=== PATIENT | female | born 1960 | race Caucasian/White ===

== ENCOUNTER 2017-08-21 02:22 | Inpatient (IN) ==
[2017-08-21] MEDS ORDERED: methylPREDNISolone 125 MG/2 ML VIAL IVP ONE (03:17)
[2017-08-21] MEDS ORDERED: Ipratropium/Albuterol Neb 3 ML IH ONE (03:17)
--- NOTE | 2017-08-21 03:22 | Emergency Department Note ---
Disposition Clinical Impression: COPD (chronic obstructive pulmonary disease) Qualifiers: COPD type: COPD with acute exacerbation Qualified Code(s): J44.1 - Chronic obstructive pulmonary disease with (acute) exacerbation Disposition: Admitted As Inpatient Condition: Fair Time of Disposition: 05:44 General Adult HPI - General Chief complaint: ED Shortness of Breath/Dyspnea Stated complaint: CECILIA Time Seen by Provider: 08/21/17 02:43 Source: EMS Mode of arrival: EMS Limitations: altered mental status Nursing Notes Reviewed: Yes Vital Signs Reviewed: Yes - History of Present Illness HPI Narrative: Patient is a 57-year-old female with a past medical history of MRDD, HTN, CHF diastoic 55%EF, and COPD presenting to the emergency department by squad from her longterm facility for the presentation of worsening shortness of breath and cough that has been going on for the past 3 days. Per squad patient was oxygen saturation in the 80s and was requiring a nonrebreather mask on 5 L of oxygen. Patient is denying any fever, chills, chest pain, nausea, vomiting, abdominal pain, back pain, urinary symptoms or any other associated symptoms at this time. Pain Scale: 0 - Related Data Home Medications Medication Instructions Recorded Confirmed Acetaminophen [Tylenol] 500 mg PO PRN PRN 08/21/17 08/21/17 Aspirin [Lo-Dose Aspirin EC] 81 mg PO DAILY 08/21/17 08/21/17 Atorvastatin Calcium [Lipitor] 20 mg PO DAILY 08/21/17 08/21/17 Benztropine Mesylate 2 mg PO DAILY 08/21/17 08/21/17 Calcium Carbonate [Antacid Ultra 1,177 mg PO PRN 08/21/17 08/21/17 Strength] Cholecalciferol (Vitamin D3) 1,000 unit PO DAILY 08/21/17 08/21/17 [Vitamin D3] CloZAPine [Fazaclo] 200 mg PO DAILY 08/21/17 08/21/17 Divalproex (12 HR) [Depakote (12 250 mg PO DAILY 08/21/17 08/21/17 HR)] Ergocalciferol (VITAMIN D2) 400 unit PO DAILY 08/21/17 08/21/17 [Vitamin D] Metoprolol Succinate [Toprol Xl] 25 mg PO DAILY 08/21/17 08/21/17 Montelukast [Singulair] 10 mg PO HS 08/21/17 08/21/17 Omeprazole [PriLOSEC] 20 mg PO DAILY 08/21/17 08/21/17 Oxybutynin Chloride [Ditropan Xl] 5 mg PO 1-2XD 08/21/17 08/21/17 Potassium Chloride [K-Tab ER] 20 meq PO DAILY 08/21/17 08/21/17 Sennosides/Docusate Sodium [Senna 1 each PO DAILY 08/21/17 08/21/17 Plus] risperiDONE [RisperDAL] 3 mg PO BID 08/21/17 08/21/17 Allergies Allergy/AdvReac Type Severity Reaction Status Date / Time Penicillins Allergy Hives Verified 08/21/17 02:23 All systems ED: reviewed and negative except as stated. Review of Systems: As Per HPI Constitutional: Denies: fever, chills ENT ED: Denies: congestion Cardiovascular: Reports: dyspnea on exertion Respiratory: Reports: cough, dyspnea, wheezes Gastrointestinal: Denies: abdominal pain, nausea, vomiting Genitourinary: Denies: urgency, dysuria Musculoskeletal: Denies: back pain, neck pain Past Medical History - Past Medical History Attestation: Yes The following information was validated with the patient. 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 She is coughing continuously. She is able to speak to me in full sentences. - General Limitations: altered mental status General appearance: alert, in no apparent distress - Head Head exam: atraumatic, normocephalic, normal inspection - Eye Eye exam: Present: normal appearance, PERRL, EOMI - ENT ENT exam: normal exam, normal oropharynx - Neck Neck exam: Present: normal inspection, full ROM, trachea midline - Chest Chest inspection: Present: normal inspection, symmetric chest wall rise - Expanded Respiratory Exam Location: wheezes: Left, Right, Upper, Lower, decreased breath sounds: Left, Right, Upper, Lower - Cardiovascular Cardiovascular exam: Present: regular rate, normal rhythm, +S1, +S2 - Abdominal Exam Abdominal exam: Present: soft, Non-Tender, normal bowel sounds - Extremities Exam Extremities exam: Present: normal inspection, full ROM, normal capillary refill. Absent: tenderness - Back Exam Back exam: Present: normal inspection, full ROM. Absent: CVA tenderness (R), CVA tenderness (L) - Neurological Exam Neurological exam: Present: alert, oriented X3 - Psychiatric Psychiatric exam: Present: normal affect, normal mood - Skin Skin exam: Present: warm, dry, intact, normal color Course Course Narrative: Plan at this time is order basic labs, chest x-ray, EKG as well as a BNP. Patient's clinical picture presents as COPD versus CHF. Labs ordered an IV steroids ordered as well. - Reevaluation(s) Reevaluation #1: Patient has increased movement of air in her lungs after her DuoNeb treatments. However, she is still having increased oxygen requirements. She remains alert and asking for something to drink. Patient will be given a hour-long treatment of albuterol nebulizers. She was accepted to the hospital by Dr. Garcia for acute exacerbation of COPD. Discussed this with the patient and she agrees with that plan. Patient's labs did show a hyponatremia however this does appear to be similar to prior visits. Time: 05:45 Vital Signs Temperature 98.7 F 08/21/17 02:24 Pulse Rate 93 08/21/17 02:24 Respiratory Rate 20 08/21/17 02:24 Blood Pressure 90/46 08/21/17 02:24 O2 Sat by Pulse Oximetry 88 08/21/17 02:24 Temperature 98.7 F 08/21/17 02:24 Pulse Rate 74 08/21/17 06:33 Respiratory Rate 22 08/21/17 06:33 Blood Pressure 93/45 08/21/17 06:33 O2 Sat by Pulse Oximetry 90 08/21/17 06:33 Oxygen Delivery Oxygen Delivery Simple Mask Medical Decision Making - Medical Records Medical records reviewed: Yes I reviewed the patient's medical records. - Lab Data Lab results reviewed: Yes I reviewed the patient's lab results. Result diagrams: 08/21/17 02:43 08/21/17 02:43 Lab Results 08/21/17 08/21/17 08/21/17 Range/Units 02:43 02:43 02:43 WBC 9.3 (4.3-11.1) K/mcL RBC 5.06 H (3.82-4.97) M/mcL Hgb 15.3 (11.5-15.4) g/dL Hct 45.0 H (35.3-44.9) % MCV 88.9 (83.0-100.0) fL MCH 30.2 (28.0-33.3) pg MCHC 34.0 (31.6-35.5) g/dL RDW 14.2 (11.5-14.5) % Plt Count 169 (140-400) K/mcL MPV 9.6 (9.4-12.4) fL Immature Gran % 0.3 (0-4) % Seg Neutrophils % 84.1 % Lymphocytes % 6.7 % Monocytes % 8.7 % Eosinophils % 0.0 % Basophils % 0.2 % Neutrophils # 7.8 (1.6-8.9) K/mcL Lymphocytes # 0.6 (0.6-4.6) K/mcL Monocytes # 0.8 (0.0-1.3) K/mcL Eosinophils # 0.0 (0.0-0.6) K/mcL Basophils # 0.0 (0.0-0.2) K/mcL Sodium 124 L (136-145) mEq/L Potassium 3.9 (3.5-5.1) mEq/L Chloride 82 L (98-107) mEq/L Carbon Dioxide 34 H (23-29) mEq/L BUN 6 (6-20) mg/dL Creatinine 0.45 L (0.60-1.20) mg/dL Est GFR ( Amer) > 60 (> 60) Est GFR (Non-Af Amer) > 60 (> 60) BUN/Creatinine Ratio 13 (6-26) Glucose 102 (70-105) mg/dL Calculated Osmolality 256 L (280-300) Calcium 8.9 (8.6-10.3) mg/dL Troponin I < 0.03 (< 0.04) ng/mL B-Natriuretic Peptide 132 H (Less than 100) pg/mL - Radiology Data Radiology results reviewed: Yes I reviewed the patient's radiology results. Chest X-Ray 08/21/17 02:43 IMPRESSION: No acute disease. D/ / Alejandro Martin MD / Alejandro Martin MD Interpreting Provider: Alejandro Martin MD - EKG Data EKG #1 EKG attestation: Yes I reviewed and interpreted this EKG. EKG results narrative: EKG done at 2:57 shows sinus tachycardia at a rate of 101. Normal axis. CA is 132, QRS is 126, QT is 350 and QTc is 408 and these are within normal limits. Patient does have a right bundle branch block, however when compared to old EKG this is present as well. This EKG appears improved from her prior EKG done in May 2017.
[2017-08-21 03:43] LABS: Basophils % 0.2 %; Hemoglobin 15.3 g/dL (11.5-15.4); Immature Granulocytes % 0.3 % (0-4); Lymphocytes # 0.6 K/mcL (0.6-4.6); Lymphocytes % 6.7 %; Mean Corpuscular Hemoglobin 30.2 pg (28.0-33.3); Mean Corpuscular Volume 88.9 fL (83.0-100.0); Mean Platelet Volume 9.6 fL (9.4-12.4); Monocytes # 0.8 K/mcL (0.0-1.3); Monocytes % 8.7 %; Neutrophils # 7.8 K/mcL (1.6-8.9); Platelet Count 169 K/mcL (140-400); Red Blood Count 5.06 M/mcL (3.82-4.97); Red Cell Distribution Width 14.2 % (11.5-14.5); Segmented Neutrophils % 84.1 %
[2017-08-21 03:55] LABS: BUN/Creatinine Ratio 13 (6-26); Blood Urea Nitrogen 6 mg/dL (6-20); Calcium 8.9 mg/dL (8.6-10.3); Carbon Dioxide 34 mEq/L (23-29); Chloride 82 mEq/L (98-107); Glucose 102 mg/dL (70-105); Osmolality,Calculated 256 (280-300); Potassium 3.9 mEq/L (3.5-5.1); Sodium 124 mEq/L (136-145); eGFR For African Americans > 60 (> 60); eGFR For Non-African Americans > 60 (> 60)
[2017-08-21 03:56] LABS: Troponin I < 0.03 ng/mL (< 0.04)
[2017-08-21] MEDS ORDERED: Furosemide 40 MG in 0.9 % Sodium Chloride 50 ML IVPB ONE (04:50)
[2017-08-21] MEDS ORDERED: Albuterol 2.5 MG/3 ML NEBULIZER IH ONE (05:07)
[2017-08-21] MEDS ORDERED: Furosemide 40 MG/4 ML VIAL IVP ONE (05:09)
--- NOTE | 2017-08-21 05:16 | Emergency Department Note ---
Disposition Clinical Impression: COPD (chronic obstructive pulmonary disease) Qualifiers: COPD type: COPD with acute exacerbation Qualified Code(s): J44.1 - Chronic obstructive pulmonary disease with (acute) exacerbation Disposition: Admitted As Inpatient Condition: Fair General Adult HPI - General Chief complaint: ED Shortness of Breath/Dyspnea Stated complaint: CECILIA Time Seen by Provider: 08/21/17 02:43 Source: EMS Mode of arrival: EMS Limitations: altered mental status Nursing Notes Reviewed: Yes Vital Signs Reviewed: Yes - History of Present Illness Pain Scale: 0 - Related Data Home Medications Medication Instructions Recorded Confirmed Acetaminophen [Tylenol] 500 mg PO PRN PRN 08/21/17 08/21/17 Aspirin [Lo-Dose Aspirin EC] 81 mg PO DAILY 08/21/17 08/21/17 Atorvastatin Calcium [Lipitor] 20 mg PO DAILY 08/21/17 08/21/17 Benztropine Mesylate 2 mg PO DAILY 08/21/17 08/21/17 Calcium Carbonate [Antacid Ultra 1,177 mg PO PRN 08/21/17 08/21/17 Strength] Cholecalciferol (Vitamin D3) 1,000 unit PO DAILY 08/21/17 08/21/17 [Vitamin D3] CloZAPine [Fazaclo] 200 mg PO DAILY 08/21/17 08/21/17 Divalproex (12 HR) [Depakote (12 250 mg PO DAILY 08/21/17 08/21/17 HR)] Ergocalciferol (VITAMIN D2) 400 unit PO DAILY 08/21/17 08/21/17 [Vitamin D] Metoprolol Succinate [Toprol Xl] 25 mg PO DAILY 08/21/17 08/21/17 Montelukast [Singulair] 10 mg PO HS 08/21/17 08/21/17 Omeprazole [PriLOSEC] 20 mg PO DAILY 08/21/17 08/21/17 Oxybutynin Chloride [Ditropan Xl] 5 mg PO 1-2XD 08/21/17 08/21/17 Potassium Chloride [K-Tab ER] 20 meq PO DAILY 08/21/17 08/21/17 Sennosides/Docusate Sodium [Senna 1 each PO DAILY 08/21/17 08/21/17 Plus] risperiDONE [RisperDAL] 3 mg PO BID 08/21/17 08/21/17 Allergies Allergy/AdvReac Type Severity Reaction Status Date / Time Penicillins Allergy Hives Verified 08/21/17 02:23 Constitutional: Denies: fever, chills ENT ED: Denies: congestion Cardiovascular: Reports: dyspnea on exertion Respiratory: Reports: cough, dyspnea, wheezes Gastrointestinal: Denies: abdominal pain, nausea, vomiting Genitourinary: Denies: urgency, dysuria Musculoskeletal: Denies: back pain, neck pain Past Medical History - Past Medical History Medical history: Reports: COPD, hyperlipidemia, hypertension, other Surgical history: Reports: no surgical history Psychiatric history: Reports: anxiety, depression, schizophrenia 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 - Social History Smoking Status: Current every day smoker Smokeless Tobacco Status: No Alcohol use: Reports: none Drug use: Reports: none Physical Exam - General Limitations: altered mental status General appearance: alert, in no apparent distress Course Vital Signs Temperature 98.7 F 08/21/17 02:24 Pulse Rate 93 08/21/17 02:24 Respiratory Rate 20 08/21/17 02:24 Blood Pressure 90/46 08/21/17 02:24 O2 Sat by Pulse Oximetry 88 08/21/17 02:24 Temperature 98.7 F 08/21/17 02:24 Pulse Rate 74 08/21/17 06:33 Respiratory Rate 22 08/21/17 06:33 Blood Pressure 93/45 08/21/17 06:33 O2 Sat by Pulse Oximetry 90 08/21/17 06:33 Oxygen Delivery Oxygen Delivery Simple Mask Medical Decision Making - Lab Data Result diagrams: 08/21/17 02:43 08/21/17 02:43 Lab Results 08/21/17 08/21/17 08/21/17 Range/Units 02:43 02:43 02:43 WBC 9.3 (4.3-11.1) K/mcL RBC 5.06 H (3.82-4.97) M/mcL Hgb 15.3 (11.5-15.4) g/dL Hct 45.0 H (35.3-44.9) % MCV 88.9 (83.0-100.0) fL MCH 30.2 (28.0-33.3) pg MCHC 34.0 (31.6-35.5) g/dL RDW 14.2 (11.5-14.5) % Plt Count 169 (140-400) K/mcL MPV 9.6 (9.4-12.4) fL Immature Gran % 0.3 (0-4) % Seg Neutrophils % 84.1 % Lymphocytes % 6.7 % Monocytes % 8.7 % Eosinophils % 0.0 % Basophils % 0.2 % Neutrophils # 7.8 (1.6-8.9) K/mcL Lymphocytes # 0.6 (0.6-4.6) K/mcL Monocytes # 0.8 (0.0-1.3) K/mcL Eosinophils # 0.0 (0.0-0.6) K/mcL Basophils # 0.0 (0.0-0.2) K/mcL Sodium 124 L (136-145) mEq/L Potassium 3.9 (3.5-5.1) mEq/L Chloride 82 L (98-107) mEq/L Carbon Dioxide 34 H (23-29) mEq/L BUN 6 (6-20) mg/dL Creatinine 0.45 L (0.60-1.20) mg/dL Est GFR ( Amer) > 60 (> 60) Est GFR (Non-Af Amer) > 60 (> 60) BUN/Creatinine Ratio 13 (6-26) Glucose 102 (70-105) mg/dL Calculated Osmolality 256 L (280-300) Calcium 8.9 (8.6-10.3) mg/dL Troponin I < 0.03 (< 0.04) ng/mL B-Natriuretic Peptide 132 H (Less than 100) pg/mL Critical Care Time Critical Care Time: Yes Total Critical Care Time: 35 Attestation: Critical care performed: Time is exclusive of separately billable procedures. Time includes: direct patient care, patient reassessment, coordination of patient care, interpretation of data (laboratory data, radiology data, and respiratory data), review of patient's medical records, medical consultation and documentation of patient care. Procedures included in critical care time: Procedures excluded from critical care time: Attestation Statement - Attestation Attestation: I, Liborio Gao MD, personally evaluated this patient and discussed their management with the resident physician. I reviewed the resident's note and agree with the documented findings, medical decision making, and plan of care. 57-year-old female with history of COPD presents to the emergency department by embolus from a local [facility] for evaluation of dyspnea and low oxygen saturations. Patient received increased oxygen supply and nebulizers and improved by the time she arrived here. She continued to have diffuse wheezes. She received triple DuoNeb and Solu-Medrol here. After observation patient continues to have diffuse bilateral wheezes. Additional albuterol treatments ordered. Oxygen saturation 88% on oxygen by mask. No acute infiltrate on chest x-ray. Labs reviewed. EKG shows a sinus tachycardia with a heart rate 101. Right bundle branch block. No acute ST segment elevations or depressions noted. The hospitalist, Dr. Garcia, was consulted and accepted admission of the patient.
--- NOTE | 2017-08-21 07:44 | Internal Med History&Physical ---
Date of Encounter: 08/21/17 Time of Encounter: 07:33 Assessment and Plan (1) Acute exacerbation of chronic obstructive pulmonary disease (COPD) Current visit: Yes Status: Acute COPD chronic hypoxic respiratory failure on 3 L nasal cannula at home she still smokes 3 packs a day. We will give IV Solu-Medrol antibiotics. (2) HLD (hyperlipidemia) Current visit: Yes Status: Chronic Continue statins Qualifiers: Hyperlipidemia type: pure hypercholesterolemia Qualified Code(s): E78.00 - Pure hypercholesterolemia, unspecified; E78.0 - Pure hypercholesterolemia (3) Schizophrenia Current visit: Yes Status: Chronic Qualifiers: Schizophrenia type: unspecified Qualified Code(s): F20.9 - Schizophrenia, unspecified (4) Tobacco abuse counseling Current visit: Yes Status: Chronic Smoking cessation discussed (5) Frequent PVCs Current visit: Yes Status: Chronic Continue telemetry monitoring, monitor electrolytes (6) Chronic respiratory failure with hypoxia and hypercapnia Current visit: No Status: Acute (7) Pulmonary hypertension Current visit: Yes Status: Chronic received her on dose of IV Lasix (8) TONA (obstructive sleep apnea) Current visit: Yes Status: Chronic placed BIPAP at night (9) Morbid obesity due to excess calories Current visit: Yes Status: Chronic Morbid obesity with BMI 40.6, frequently for at home will consult PT and OT discharged back to [facility] when O2 improvement Internal Medicine - H&P: HPI Chief complaint: SOB Admitted From: Long-term Nursing Facility Plans for Post Hospital Care: Transfer Intermediate Facility History of present illness: Ms. Fuller is a 57 year old female who has history of COPD on 3 L of nasal cannula , MRDD,hyperlipidemia hypertension schizophrenia depression and anxiety she lives in a [facility] presented to emergency room for shortness of breath and a productive cough. Patient is hard of hearing and very poor historian. She stated that she was sent to the rehabilitation center due to multiple fall at home and the leg weakness. She has been smoking 3 packs daily, tried cutting down a pack a day. she has COPD on 3 L nasal cannula at home. She developed a productive cough 3 days ago and the progressively getting shortness of breath and with diffuse wheezing. The [facility] staff check her oxygen saturation 80s% on 5 L nasal cannula. They sent her to the emergency room she was found having just diffusing bilateral wheezing, received multiple nebulizer treatment ,x-ray was negative. She is admitted for COPD exacerbation Past Med Surg Social Fam HX - Past Medical History Medical history: COPD, hyperlipidemia, hypertension, other Psychiatric history: anxiety, depression, schizophrenia - Past Surgical History Surgical History: no surgical history - Social History Smoking Status: Current every day smoker Smokeless Tobacco Status: No Alcohol use: none Drug use: none - Family History Father Family Member Ethnicity: Non- Hx Family Endocrine Disorder: Yes (DM) Mother Family Member Ethnicity: Non- Living Status: Still Living Brother Family Member Ethnicity: Non- Living Status: Still Living Hx Family Endocrine Disorder: Yes (DIABETES MELLITUS.) Internal Medicine - H&P: Meds Acetaminophen [Tylenol] 500 mg PO PRN PRN 08/21/17 [History] Aspirin [Lo-Dose Aspirin EC] 81 mg PO DAILY 08/21/17 [History] Atorvastatin Calcium [Lipitor] 20 mg PO DAILY 08/21/17 [History] Benztropine Mesylate 2 mg PO DAILY 08/21/17 [History] Calcium Carbonate [Antacid Ultra Strength] 1,177 mg PO PRN 08/21/17 [History] Cholecalciferol (Vitamin D3) [Vitamin D3] 1,000 unit PO DAILY 08/21/17 [History] CloZAPine [Fazaclo] 200 mg PO DAILY 08/21/17 [History] Divalproex (12 HR) [Depakote (12 HR)] 250 mg PO DAILY 08/21/17 [History] Ergocalciferol (VITAMIN D2) [Vitamin D] 400 unit PO DAILY 08/21/17 [History] Metoprolol Succinate [Toprol Xl] 25 mg PO DAILY 08/21/17 [History] Montelukast [Singulair] 10 mg PO HS 08/21/17 [History] Omeprazole [PriLOSEC] 20 mg PO DAILY 08/21/17 [History] Oxybutynin Chloride [Ditropan Xl] 5 mg PO 1-2XD 08/21/17 [History] Potassium Chloride [K-Tab ER] 20 meq PO DAILY 08/21/17 [History] Sennosides/Docusate Sodium [Senna Plus] 1 each PO DAILY 08/21/17 [History] risperiDONE [RisperDAL] 3 mg PO BID 08/21/17 [History] 3 Allergy/AdvReac Type Severity Reaction Status Date / Time Penicillins Allergy Hives Verified 08/21/17 02:23 All Systems PM: A 10-system review of systems was performed and is negative for pertinent findings except as documented above in the HPI. - Constitutional Vitals: Temp Pulse Resp BP Pulse Ox 99.4 F 93 16 118/59 90 08/21/17 07:03 08/21/17 07:03 08/21/17 07:03 08/21/17 07:03 08/21/17 07:03 General appearance: Present: A&O X 3, morbidly obese Exam: CONSTITUTIONAL: Patient appears as an age appropriate female well developed, in no acute distress. EYES Clear sclerae, bilateral pupils are equal, reactive to light and accommodation. Extraocular movements are intact RESPIRATORY: No accessory muscle use, bilateral wheezing, no crackles/rales. CARDIOVASCULAR: Regular heart rate, normal S1 and S2, no murmurs GASTROINTESTINAL: bowel sounds present, soft, no tenderness. No hepatosplenomegaly. No bilateral CVA tenderness MUSCULOSKELETAL: Joints in normal range of motion, no clubbing, no edema, no cyanosis. Bilateral peripheral pulses 2+ LYMPHATIC no lymphadenopathy in neck, groin and axilla bilaterally, no thyromegaly. NEUROLOGIC: CN II to XII are grossly intact, no focal neurological deficit. Deep tendon reflexes 2+ bilaterally. Normal light touch sensation to upper and lower extremity PSYCHIATRIC: Oriented x3, with good insight, mood is euthymic. No hallucinations or delusions. SKIN: Skin warm and dry, no rashes, no open wound. Internal Med - H&P Results - Labs CBC & Chem 7: 08/21/17 02:43 08/21/17 02:43
[2017-08-21] MEDS ORDERED: Naloxone 0.4 MG/ML INJ IVP PRN (07:51)
[2017-08-21] MEDS: Divalproex (12 HR) 250 MG TABLET PO SCH (08:37)
[2017-08-21] MEDS: Aspirin Enteric Coated 81 MG Tablet PO SCH (08:37)
[2017-08-21] MEDS: Cholecalciferol (D-3) 1,000 UNIT TABLET PO SCH (08:37)
[2017-08-21] MEDS: RisperiDAL 3 MG TABLET PO SCH ×2 (08:37→21:17)
[2017-08-21] MEDS: Sennosides/Docusate Sodium TABLET PO SCH (08:38)
[2017-08-21] MEDS: Levofloxacin 750 MG/150 ML 750 MG/150 ML BAG IVPB SCH (08:38)
[2017-08-21] MEDS: Metoprolol XL (24 HR) Succ 25 MG TAB.ER.24H PO SCH (08:38)
[2017-08-21] MEDS: cloZAPine 100 MG TABLET PO SCH (08:39)
[2017-08-21] MEDS ORDERED: NON-FORMULARY MEDICATION 1 EACH EACH (Ergocalciferol (Vitamin D2) [Vitamin D] 400 UNIT) PO SCH (09:00)
[2017-08-21] MEDS: Ipratropium/Albuterol Neb 3 ML IH SCH ×4 (11:39→23:20)
[2017-08-21] MEDS: *HR* Heparin 5,000 UNIT/ML VIAL SQ SCH ×2 (15:53→21:17)
[2017-08-21] MEDS: methylPREDNISolone 125 MG/2 ML VIAL IVP SCH ×2 (15:54→19:06)
[2017-08-22] MEDS: methylPREDNISolone 125 MG/2 ML VIAL IVP SCH ×2 (04:59→05:00)
[2017-08-22] MEDS: *HR* Heparin 5,000 UNIT/ML VIAL SQ SCH ×3 (04:59→21:55)
[2017-08-22] MEDS: Ipratropium/Albuterol Neb 3 ML IH SCH ×5 (05:02→20:03)
[2017-08-22 07:34] LABS: Hematocrit 45.1 % (35.3-44.9); Hemoglobin 15.1 g/dL (11.5-15.4); Mean Corpuscular HGB Conc 33.5 g/dL (31.6-35.5); Mean Corpuscular Hemoglobin 29.8 pg (28.0-33.3); Mean Platelet Volume 9.8 fL (9.4-12.4); Platelet Count 149 K/mcL (140-400); Red Blood Count 5.07 M/mcL (3.82-4.97); Red Cell Distribution Width 13.8 % (11.5-14.5)
[2017-08-22 08:00] LABS: BUN/Creatinine Ratio 15 (6-26); Blood Urea Nitrogen 6 mg/dL (6-20); Calcium 9.2 mg/dL (8.6-10.3); Carbon Dioxide 41 mEq/L (23-29); Chloride 84 mEq/L (98-107); Chol/HDL Ratio 2.1 (0-4.9); Cholesterol 119 mg/dL (< 200); Glucose 135 mg/dL (70-105); HDL Cholesterol 56 mg/dL (40-59); LDL Cholesterol,Calculated 45 mg/dL (0-99); Magnesium 1.8 mg/dL (1.6-2.6); Osmolality,Calculated 270 (280-300); Potassium 4.8 mEq/L (3.5-5.1); Sodium 130 mEq/L (136-145); Triglycerides 91 mg/dL (< 150); eGFR For African Americans > 60 (> 60); eGFR For Non-African Americans > 60 (> 60)
[2017-08-22] MEDS: Divalproex (12 HR) 250 MG TABLET PO SCH (09:32)
[2017-08-22] MEDS: cloZAPine 100 MG TABLET PO SCH (09:32)
[2017-08-22] MEDS: Aspirin Enteric Coated 81 MG Tablet PO SCH (09:32)
[2017-08-22] MEDS: RisperiDAL 3 MG TABLET PO SCH ×2 (09:33→21:54)
[2017-08-22] MEDS: Sennosides/Docusate Sodium TABLET PO SCH (09:34)
[2017-08-22] MEDS: Metoprolol XL (24 HR) Succ 25 MG TAB.ER.24H PO SCH (09:34)
[2017-08-22] MEDS: Cholecalciferol (D-3) 1,000 UNIT TABLET PO SCH (09:34)
[2017-08-22] MEDS: Levofloxacin 750 MG/150 ML 750 MG/150 ML BAG IVPB SCH (09:37)
--- NOTE | 2017-08-22 10:34 | Internal Med Progress Note ---
Date of Encounter: 08/22/17 Time of Encounter: 10:31 - Assessment and plan (1) Acute exacerbation of chronic obstructive pulmonary disease (COPD) Current Visit: Yes Status: Acute Assessment and plan: Acute hypoxic respiratory failure secondary to acute COPD exacerbation due to acute bacterial bronchitis Continue Solu-Medrol, Levaquin day #2, oxygen and DuoNeb's (2) Frequent PVCs Current Visit: Yes Status: Chronic Assessment and plan: Likely related to hypoxia due to acute COPD exacerbation Magnesium and potassium are okay, keep monitoring (3) HLD (hyperlipidemia) Current Visit: Yes Status: Chronic Qualifiers: Hyperlipidemia type: pure hypercholesterolemia Qualified Code(s): E78.00 - Pure hypercholesterolemia, unspecified; E78.0 - Pure hypercholesterolemia (4) Morbid obesity due to excess calories Current Visit: Yes Status: Chronic (5) TONA (obstructive sleep apnea) Current Visit: Yes Status: Chronic (6) Schizophrenia Current Visit: Yes Status: Chronic Assessment and plan: Stable on clozapine and Risperdal Qualifiers: Schizophrenia type: unspecified Qualified Code(s): F20.9 - Schizophrenia, unspecified (7) Tobacco abuse counseling Current Visit: Yes Status: Chronic (8) Hyponatremia Current Visit: No Status: Chronic Assessment and plan: Improving, monitor sodium (9) Obesity hypoventilation syndrome Current Visit: No Status: Chronic - Subjective Interval history: Appears to be in no distress, no chest pain, very hard of hearing and poor historian due to cognitive impairment - Constitutional Vitals: Temp Pulse Resp BP Pulse Ox 97.9 F 111 15 134/73 88 08/22/17 08:01 08/22/17 08:01 08/22/17 08:01 08/22/17 08:01 08/22/17 08:01 General appearance: Present: A&O X 2, morbidly obese - Head Head exam: Present: atraumatic, normocephalic - Eye Eye exam: Present: PERRL, conjuntiva pink, sclera anicteric Pupils: Present: PERRL - Neck Neck exam general surgery: Present: supple, trachea midline. Absent: lymphadenopathy - Respiratory Respiratory exam: Present: CTAB, wheezes (Diffuse wheezes). Absent: accessory muscle use, rales, rhonchi Additional comments: Severe kyphosis - Cardiovascular Cardiovascular exam: Present: RRR, +S1, +S2. Absent: diastolic murmur, gallop, rubs, systolic murmur - GI/Abdominal GI/Abdominal exam: Present: normal bowel sounds, soft, no peritoneal signs. Absent: distended, tenderness - Extremities Exam Extremities exam: Present: warm, radial pulses palpable and symmetrical. Absent : calf tenderness, cyanotic, pedal edema - Neurological Exam Neurological exam: Present: CN II-XII intact, no focal deficits. Absent: oriented X3, pronater drift, facial droop, speech deficit - Skin Skin exam: Present: dry, intact Internal Medicine: Result - Labs CBC & Chem 7: 08/22/17 07:12 08/22/17 07:12 Labs: Short CBC 08/22/17 Range/Units 07:12 WBC 5.2 (4.3-11.1) K/mcL Hgb 15.1 (11.5-15.4) g/dL Hct 45.1 H (35.3-44.9) % Plt Count 149 (140-400) K/mcL [facility] 08/22/17 07:12 Sodium 130 L Potassium 4.8 Chloride 84 L Carbon Dioxide 41 H* BUN 6 Creatinine 0.39 L Glucose 135 H Calcium 9.2 Consult Discharge Plan - Plan Referrals: Jono Ramirez, STORE CLERK [Primary Care Provider] -
[2017-08-22] MEDS: MethylPREDNISolone 40 MG/ML VIAL IVP SCH ×2 (15:09→21:55)
[2017-08-23] MEDS: Ipratropium/Albuterol Neb 3 ML IH SCH ×6 (00:45→21:05)
[2017-08-23] MEDS: *HR* Heparin 5,000 UNIT/ML VIAL SQ SCH ×3 (05:49→22:38)
[2017-08-23 06:29] LABS: BUN/Creatinine Ratio 22 (6-26); Blood Urea Nitrogen 8 mg/dL (6-20); Carbon Dioxide 43 mEq/L (23-29); Chloride 83 mEq/L (98-107); Glucose 128 mg/dL (70-105); Osmolality,Calculated 268 (280-300); Potassium 5.4 mEq/L (3.5-5.1); Sodium 129 mEq/L (136-145); eGFR For African Americans > 60 (> 60); eGFR For Non-African Americans > 60 (> 60)
[2017-08-23] MEDS: Levofloxacin 750 MG/150 ML 750 MG/150 ML BAG IVPB SCH (09:17)
[2017-08-23] MEDS: Aspirin Enteric Coated 81 MG Tablet PO SCH (09:18)
[2017-08-23] MEDS: Sennosides/Docusate Sodium TABLET PO SCH (09:18)
[2017-08-23] MEDS: Cholecalciferol (D-3) 1,000 UNIT TABLET PO SCH (09:18)
[2017-08-23] MEDS: Metoprolol XL (24 HR) Succ 25 MG TAB.ER.24H PO SCH (09:18)
[2017-08-23] MEDS: Divalproex (12 HR) 250 MG TABLET PO SCH (09:18)
[2017-08-23] MEDS: RisperiDAL 3 MG TABLET PO SCH ×2 (09:19→22:38)
[2017-08-23] MEDS: cloZAPine 100 MG TABLET PO SCH (09:19)
[2017-08-23] MEDS: MethylPREDNISolone 40 MG/ML VIAL IVP SCH ×3 (09:19→22:38)
--- NOTE | 2017-08-23 10:52 | Internal Med Progress Note ---
Date of Encounter: 08/23/17 Time of Encounter: 10:50 - Assessment and plan (1) Acute exacerbation of chronic obstructive pulmonary disease (COPD) Current Visit: Yes Status: Acute Assessment and plan: Acute hypoxic respiratory failure secondary to acute COPD exacerbation due to acute bacterial bronchitis Continue Solu-Medrol, Levaquin day #3 and cefepime oxygen and DuoNeb's Repeat chest x-ray, order ABG Start IV Lasix, last echocardiogram from May of this year showed: Ejection fraction of 55-60%, indeterminate diastolic function, Mild mitral and tricuspid regurgitation (2) Frequent PVCs Current Visit: Yes Status: Chronic Assessment and plan: Likely related to hypoxia due to acute COPD exacerbation , keep monitoring potassium and magnesium (3) HLD (hyperlipidemia) Current Visit: Yes Status: Chronic Qualifiers: Hyperlipidemia type: pure hypercholesterolemia Qualified Code(s): E78.00 - Pure hypercholesterolemia, unspecified; E78.0 - Pure hypercholesterolemia (4) Morbid obesity due to excess calories Current Visit: Yes Status: Chronic (5) TONA (obstructive sleep apnea) Current Visit: Yes Status: Chronic (6) Schizophrenia Current Visit: Yes Status: Chronic Assessment and plan: Stable on clozapine and Risperdal Qualifiers: Schizophrenia type: unspecified Qualified Code(s): F20.9 - Schizophrenia, unspecified (7) Tobacco abuse counseling Current Visit: Yes Status: Chronic (8) Hyponatremia Current Visit: No Status: Chronic Assessment and plan: Improving, monitor sodium (9) Obesity hypoventilation syndrome Current Visit: No Status: Chronic (10) Hyperkalemia Current Visit: Yes Status: Acute Assessment and plan: Stop potassium supplements and order Kayexalate - Subjective Interval history: Appears to be in no distress, no chest pain, very hard of hearing and poor historian due to cognitive impairment - Constitutional Vitals: Temp Pulse Resp BP Pulse Ox 98.5 F 93 16 119/72 93 08/23/17 07:26 08/23/17 07:26 08/23/17 07:30 08/23/17 07:26 08/23/17 07:30 General appearance: Present: A&O X 2, morbidly obese Exam: - Head Head exam: Present: atraumatic, normocephalic - Eye Eye exam: Present: PERRL, conjuntiva pink, sclera anicteric Pupils: Present: PERRL - Neck Neck exam general surgery: Present: supple, trachea midline. Absent: lymphadenopathy - Respiratory Respiratory exam: Present: CTAB, wheezes (Diffuse wheezes), very congested. Absent: accessory muscle use, rales, rhonchi Additional comments: Severe kyphosis - Cardiovascular Cardiovascular exam: Present: RRR, +S1, +S2. Absent: diastolic murmur, gallop, rubs, systolic murmur - GI/Abdominal GI/Abdominal exam: Present: normal bowel sounds, soft, no peritoneal signs. Absent: distended, tenderness - Extremities Exam Extremities exam: Present: warm, radial pulses palpable and symmetrical. Absent : calf tenderness, cyanotic, pedal edema - Neurological Exam Neurological exam: Present: CN II-XII intact, no focal deficits. Absent: oriented X3, pronater drift, facial droop, speech deficit - Skin Skin exam: Present: dry, intact Internal Medicine: Result - Labs CBC & Chem 7: 08/22/17 07:12 08/23/17 04:41 Labs: BMP 08/23/17 04:41 Sodium 129 L Potassium 5.4 H Chloride 83 L Carbon Dioxide 43 H* BUN 8 Creatinine 0.37 L Glucose 128 H Calcium 9.0 Consult Discharge Plan - Plan Referrals: Jono Ramirez, CORE STRIPPER [Primary Care Provider] -
[2017-08-23] MEDS ORDERED: Cefepime HCl 1,000 MG in D5% in Water (Mini-Bag+) 100 ML IVPB SCH (11:00)
[2017-08-23] MEDS ORDERED: Cefepime HCl 1,000 MG in Water for inj. (sterile) 20 ML 10 ML IVPB SCH (11:15)
--- NOTE | 2017-08-23 12:28 | Electrocardiograph Report ---
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
[2017-08-23 14:13] LABS: ABG Base Excess 13 mEq/L (-2 to 3); ABG HCO3 44 mEq/L (21-27); ABG Oxygen Saturation 87 % (95-98); ABG PCO2 89 mmHg (35-45); ABG PO2 62 mmHg (85-104); ABG TCO2 47 mEq/L (20-26)
[2017-08-23] MEDS: Furosemide 20 MG/2 ML VIAL IVP SCH ×2 (15:36→17:22)
[2017-08-23 17:02] LABS: ABG Base Excess 17 mEq/L (-2 to 3); ABG HCO3 49 mEq/L (21-27); ABG Oxygen Saturation 84 % (95-98); ABG PCO2 93 mmHg (35-45); ABG PH 7.33 pH Units (7.32-7.45); ABG PO2 56 mmHg (85-104); ABG TCO2 52 mEq/L (20-26)
[2017-08-23 18:16] LABS: ABG Base Excess 17 mEq/L (-2 to 3); ABG HCO3 48 mEq/L (21-27); ABG Oxygen Saturation 92 % (95-98); ABG PCO2 86 mmHg (35-45); ABG PH 7.35 pH Units (7.32-7.45); ABG PO2 73 mmHg (85-104); ABG TCO2 50 mEq/L (20-26)
[2017-08-24] MEDS: Ipratropium/Albuterol Neb 3 ML IH SCH ×6 (00:22→20:54)
[2017-08-24] MEDS: Cefepime HCl 1,000 MG in Water for inj. (sterile) 20 ML 10 ML IVPB SCH ×2 (04:07→17:26)
[2017-08-24 04:43] LABS: ABG Base Excess 17 mEq/L (-2 to 3); ABG HCO3 48 mEq/L (21-27); ABG Oxygen Saturation 91 % (95-98); ABG PCO2 89 mmHg (35-45); ABG PH 7.34 pH Units (7.32-7.45); ABG PO2 71 mmHg (85-104); ABG TCO2 50 mEq/L (20-26)
[2017-08-24] MEDS ORDERED: *HR* LORazepam 2 MG/ML VIAL IVP ONE (05:21)
[2017-08-24 05:37] LABS: Hematocrit 46.2 % (35.3-44.9); Hemoglobin 14.7 g/dL (11.5-15.4); Mean Corpuscular HGB Conc 31.8 g/dL (31.6-35.5); Mean Corpuscular Hemoglobin 29.5 pg (28.0-33.3); Mean Corpuscular Volume 92.8 fL (83.0-100.0); Mean Platelet Volume 9.7 fL (9.4-12.4); Platelet Count 191 K/mcL (140-400); Red Blood Count 4.98 M/mcL (3.82-4.97); Red Cell Distribution Width 13.8 % (11.5-14.5)
[2017-08-24] MEDS: *HR* Heparin 5,000 UNIT/ML VIAL SQ SCH ×3 (05:38→21:10)
[2017-08-24 05:59] LABS: BUN/Creatinine Ratio 28 (6-26); Blood Urea Nitrogen 11 mg/dL (6-20); Carbon Dioxide > 45 mEq/L (23-29); Chloride 80 mEq/L (98-107); Glucose 128 mg/dL (70-105); Osmolality,Calculated 271 (280-300); Potassium 4.5 mEq/L (3.5-5.1); Sodium 130 mEq/L (136-145); eGFR For African Americans > 60 (> 60); eGFR For Non-African Americans > 60 (> 60)
[2017-08-24] MEDS: Furosemide 20 MG/2 ML VIAL IVP SCH ×2 (08:08→17:26)
[2017-08-24 08:59] LABS: ABG Base Excess 19 mEq/L (-2 to 3); ABG HCO3 49 mEq/L (21-27); ABG Oxygen Saturation 82 % (95-98); ABG PCO2 79 mmHg (35-45); ABG PO2 50 mmHg (85-104); ABG TCO2 52 mEq/L (20-26)
[2017-08-24] MEDS ORDERED: levoFLOXacin 750 MG TABLET PO SCH (09:00)
[2017-08-24] MEDS: Aspirin Enteric Coated 81 MG Tablet PO SCH (09:26)
[2017-08-24] MEDS: Cholecalciferol (D-3) 1,000 UNIT TABLET PO SCH (09:28)
[2017-08-24] MEDS: Divalproex (12 HR) 250 MG TABLET PO SCH (09:28)
[2017-08-24] MEDS: Sennosides/Docusate Sodium TABLET PO SCH (09:29)
[2017-08-24] MEDS: RisperiDAL 3 MG TABLET PO SCH ×2 (09:29→21:09)
[2017-08-24] MEDS: cloZAPine 100 MG TABLET PO SCH (09:30)
[2017-08-24] MEDS: MethylPREDNISolone 40 MG/ML VIAL IVP SCH ×3 (09:31→21:10)
[2017-08-24] MEDS: Metoprolol XL (24 HR) Succ 25 MG TAB.ER.24H PO SCH (09:41)
--- NOTE | 2017-08-24 10:30 | Internal Med Progress Note ---
<William Rodriguez - Last Filed: 08/24/17 18:31> Date of Encounter: 08/24/17 Time of Encounter: 09:15 - Assessment and plan (1) Acute and chronic respiratory failure Current Visit: Yes Status: Acute Assessment and plan: - Likely secondary to pulmonary edema (as suggested by CXR today) and COPD exacerbation in the setting of possible TONA/OHS. - Continue BiPAP for respiratory support. - Increase diursis for pulmonary edema and continue IV Solu-Medrol and bronchodilators for COPD. - Currently on levofloxacin (Day 4) and cefepime (Day 2). Will continue antibiotics to cover for possible pneumonia at this time but consider discontinuation if patient's respiratory status improves. - Continue to monitor closely. Qualifiers: Respiratory failure complication: hypoxia and hypercapnia Qualified Code(s) : J96.21 - Acute and chronic respiratory failure with hypoxia; J96.22 - Acute and chronic respiratory failure with hypercapnia; J96.22 - Acute and chronic respiratory failure with hypercapnia; J96.22 - Acute and chronic respiratory failure with hypercapnia (2) CHF exacerbation Current Visit: Yes Status: Suspected Assessment and plan: - Echo on 06/24/17 showed LVEF 55-60% with indeterminate diastolic function. - CXR on 08/24/17 showed worsening interstitial and alveolar edema with small bilateral pleural effusions. - Increase IV Lasix to 40 mg BID. - Strict I/O and daily weight. Qualifiers: Heart failure type: diastolic Qualified Code(s): I50.33 - Acute on chronic diastolic (congestive) heart failure (3) Acute exacerbation of chronic obstructive pulmonary disease (COPD) Current Visit: Yes Status: Acute Assessment and plan: - Continue IV Solu-Medrol, bronchodilators and BiPAP. (4) TONA (obstructive sleep apnea) Current Visit: Yes Status: Chronic Assessment and plan: - Continue BiPAP. (5) Obesity hypoventilation syndrome Current Visit: No Status: Chronic Assessment and plan: - Continue BiPAP. (6) Hyponatremia Current Visit: No Status: Chronic Assessment and plan: - Stable at 130 today. - Continue to monitor. (7) Schizophrenia Current Visit: Yes Status: Chronic Assessment and plan: - Continue clozapine and Risperdal. Qualifiers: Schizophrenia type: unspecified Qualified Code(s): F20.9 - Schizophrenia, unspecified (8) Tobacco abuse counseling Current Visit: Yes Status: Chronic Assessment and plan: - Okay to use nicotine replacement therapy as needed. (9) DVT prophylaxis Current Visit: No Status: Acute Assessment and plan: - Continue SQ heparin. - Subjective Interval history: Patient was seen and examined this morning while patient is still on BiPAP. Patient is somnolent but arousable by verbal stimuli. - Constitutional Vitals: Temp Pulse Resp BP Pulse Ox 98.8 F 46 17 105/53 92 08/24/17 08:00 08/24/17 08:00 08/24/17 08:00 08/24/17 08:00 08/24/17 08:00 General appearance: Present: A&O X 2, morbidly obese - Head Head exam: Present: normal inspection - Eye Eye exam: Present: EOMI - Neck Neck exam general surgery: Present: normal inspection, trachea midline - Respiratory Respiratory exam: Present: decreased breath sounds - Cardiovascular Cardiovascular exam: Present: RRR, +S1, +S2 - GI/Abdominal GI/Abdominal exam: Present: normal bowel sounds, soft. Absent: tenderness - Extremities Exam Extremities exam: Present: normal inspection. Absent: cyanotic - Neurological Exam Neurological exam: Present: alert, no focal deficits. Absent: facial droop - Skin Skin exam: Present: dry, warm Internal Medicine: Result - Labs CBC & Chem 7: 08/24/17 05:13 08/24/17 05:13 Labs: Short CBC 08/24/17 Range/Units 05:13 WBC 4.0 L (4.3-11.1) K/mcL Hgb 14.7 (11.5-15.4) g/dL Hct 46.2 H (35.3-44.9) % Plt Count 191 (140-400) K/mcL BMP 08/24/17 05:13 Sodium 130 L Potassium 4.5 Chloride 80 L Carbon Dioxide > 45 H* BUN 11 Creatinine 0.40 L Glucose 128 H Calcium 9.0 - ABG Interpretation ABG results: ABG ABG pH 7.40 pH Units (7.32-7.45) 08/24/17 08:56 ABG pCO2 79 mmHg (35-45) H* 08/24/17 08:56 ABG pO2 50 mmHg (85-104) L* 08/24/17 08:56 ABG O2 Saturation 82 % (95-98) L 08/24/17 08:56 - Impressions Impressions Chest X-Ray 08/23/17 10:48 IMPRESSION: Suspect interstitial edema with small left effusion, slightly worse than prior exam. Stable cardiomegaly. D/ / Dave Smalls / Dave Smalls Interpreting Provider: Dave Smalls Consult Discharge Plan - Plan Instructions: Heart Failure (DC), Chronic Obstructive Pulmonary Disease (DC), Fall Prevention (DC), Cigarette Smoking and Your Health, Waiter/Waitress Club (GEN) Referrals: Jono Ramirez, ARCHITECTURE TECHNICIAN [Primary Care Provider] - <Cooper Schumacher - Last Filed: 08/24/17 19:04> Date of Encounter: 08/24/17 - Assessment and plan (1) Acute and chronic respiratory failure Current Visit: Yes Status: Acute Qualifiers: Respiratory failure complication: hypoxia and hypercapnia Qualified Code(s) : J96.21 - Acute and chronic respiratory failure with hypoxia; J96.22 - Acute and chronic respiratory failure with hypercapnia; J96.22 - Acute and chronic respiratory failure with hypercapnia; J96.22 - Acute and chronic respiratory failure with hypercapnia (2) Acute exacerbation of chronic obstructive pulmonary disease (COPD) Current Visit: Yes Status: Acute (3) CHF exacerbation Current Visit: Yes Status: Suspected Qualifiers: Heart failure type: diastolic Qualified Code(s): I50.33 - Acute on chronic diastolic (congestive) heart failure (4) HLD (hyperlipidemia) Current Visit: Yes Status: Chronic Qualifiers: Hyperlipidemia type: mixed hyperlipidemia Qualified Code(s): E78.2 - Mixed hyperlipidemia (5) Obesity hypoventilation syndrome Current Visit: No Status: Chronic (6) Hyponatremia Current Visit: No Status: Chronic (7) Schizophrenia Current Visit: Yes Status: Chronic Qualifiers: Schizophrenia type: unspecified Qualified Code(s): F20.9 - Schizophrenia, unspecified (8) Tobacco abuse Current Visit: Yes Status: Chronic - Constitutional Vitals: Temp Pulse Resp BP Pulse Ox 98.1 F 100 15 114/71 92 08/24/17 16:47 08/24/17 16:47 08/24/17 16:47 08/24/17 16:47 08/24/17 16:47 Internal Medicine: Result - Labs CBC & Chem 7: 08/24/17 05:13 08/24/17 05:13 Labs: Short CBC 08/24/17 Range/Units 05:13 WBC 4.0 L (4.3-11.1) K/mcL Hgb 14.7 (11.5-15.4) g/dL Hct 46.2 H (35.3-44.9) % Plt Count 191 (140-400) K/mcL BMP 08/24/17 05:13 Sodium 130 L Potassium 4.5 Chloride 80 L Carbon Dioxide > 45 H* BUN 11 Creatinine 0.40 L Glucose 128 H Calcium 9.0 - ABG Interpretation ABG results: ABG ABG pH 7.40 pH Units (7.32-7.45) 08/24/17 12:23 ABG pCO2 87 mmHg (35-45) H* 08/24/17 12:23 ABG pO2 60 mmHg (85-104) L 08/24/17 12:23 ABG O2 Saturation 88 % (95-98) L 08/24/17 12:23 - Impressions Impressions Chest X-Ray 08/24/17 12:18 IMPRESSION: Worsening interstitial and alveolar edema with small bilateral pleural effusions. D/ / Dave Smalls / Dave Smalls Interpreting Provider: Dave Smalls - Attending Attestation I examined this patient and my medical decision-making was reviewed with the Resident Physician on 08/24/17. I agree with the documented findings, disposition and treatment plan as described except to the extent set forth below. Ms Fuller is currently admitted for respiratory failure. She remains high risk due to potential for worsening respiratory status. She is on and off bipap today. Ms Fuller wants to eat. No fever or chills. She has had issues with somnolence today but later was very alert and off bipap. No CP. Exam alert Comfortable at this time Mucus membranes dry Heart reg and gelacio Lungs with diffuse rhonchi Abd soft I/P 1. Resp failure 2. COPD Further diagnoses and plan as above.
[2017-08-24 12:25] LABS: ABG Base Excess 22 mEq/L (-2 to 3); ABG HCO3 54 mEq/L (21-27); ABG Oxygen Saturation 88 % (95-98); ABG PCO2 87 mmHg (35-45); ABG PO2 60 mmHg (85-104); ABG TCO2 56 mEq/L (20-26)
[2017-08-24] MEDS ORDERED: Furosemide 20 MG/2 ML VIAL IVP ONE (18:25)
[2017-08-25] MEDS: Ipratropium/Albuterol Neb 3 ML IH SCH ×7 (00:05→23:39)
[2017-08-25] MEDS: Cefepime HCl 1,000 MG in Water for inj. (sterile) 20 ML 10 ML IVPB SCH ×2 (05:44→15:23)
[2017-08-25] MEDS: *HR* Heparin 5,000 UNIT/ML VIAL SQ SCH ×3 (05:44→20:37)
[2017-08-25] MEDS ORDERED: Furosemide 40 MG/4 ML VIAL ONE (06:31)
[2017-08-25] MEDS: Furosemide 40 MG/4 ML VIAL IVP ONE ×2 (06:32→06:39)
[2017-08-25 06:33] LABS: ABG Base Excess 21 mEq/L (-2 to 3); ABG HCO3 55 mEq/L (21-27); ABG Oxygen Saturation 73 % (95-98); ABG PCO2 116 mmHg (35-45); ABG PH 7.29 pH Units (7.32-7.45); ABG PO2 48 mmHg (85-104); ABG TCO2 59 mEq/L (20-26)
--- NOTE | 2017-08-25 06:46 | Event Note ---
Date of Encounter: 08/25/17 Time of Encounter: 06:36 Called by RN to evaluate patient, via [place]. RN concern for change in baseline mentation and supplied vitals, HR 57, 90% on BIPAP, 146/BP and temp 98.1. Requested stat ABG via [place]. Patient examined resident MD and performed exam. BIPAP on face. On drop arm test , patient avoiding face. Pt moaning however. ABG values reviewed with attending. Respiratory therapy in room, and progressive rise in O2 saturation from 80s to 94% following vent change settings and position changed in bed. Will order repeat ABG and stat CXR. Attending noted pulmonary edema in previous CXR. One time 40 mg IV Lasix ordered. Case reviewed with attending and he agrees with plan. Thank RN and respiratory therapy for coordination of care. Pt may benefit from consultation with pulmonology, will defer decision to day team.
[2017-08-25 07:31] LABS: Basophils % 0.2 %; Hematocrit 47.5 % (35.3-44.9); Hemoglobin 15.7 g/dL (11.5-15.4); Immature Granulocytes % 0.4 % (0-4); Lymphocytes # 0.8 K/mcL (0.6-4.6); Lymphocytes % 16.7 %; Mean Corpuscular HGB Conc 33.1 g/dL (31.6-35.5); Mean Corpuscular Hemoglobin 29.7 pg (28.0-33.3); Mean Corpuscular Volume 89.8 fL (83.0-100.0); Mean Platelet Volume 9.6 fL (9.4-12.4); Monocytes # 0.7 K/mcL (0.0-1.3); Monocytes % 13.9 %; Platelet Count 189 K/mcL (140-400); Red Blood Count 5.29 M/mcL (3.82-4.97); Red Cell Distribution Width 13.3 % (11.5-14.5); Segmented Neutrophils % 68.8 %
[2017-08-25 07:43] LABS: Neutrophils # 3.2 K/mcL (1.6-8.9)
[2017-08-25 07:43] LABS: ABG Base Excess 22 mEq/L (-2 to 3); ABG HCO3 54 mEq/L (21-27); ABG Oxygen Saturation 92 % (95-98); ABG PCO2 92 mmHg (35-45); ABG PH 7.38 pH Units (7.32-7.45); ABG PO2 71 mmHg (85-104); ABG TCO2 57 mEq/L (20-26); Blood Gas Modality AVAP; Blood Gas PEEP 8 cm H2O; Blood Gas Pressure Support 29 cm H2O; Blood Gas VT 500 cc
[2017-08-25] MEDS ORDERED: Furosemide 40 MG/4 ML VIAL IVP SCH (08:00)
--- NOTE | 2017-08-25 08:33 | Internal Med Progress Note ---
<William Rodriguez - Last Filed: 08/25/17 17:56> Date of Encounter: 08/25/17 Time of Encounter: 08:00 - Assessment and plan (1) Acute and chronic respiratory failure Current Visit: Yes Status: Acute Assessment and plan: - Likely secondary to pulmonary edema (as suggested by CXR today) and COPD exacerbation in the setting of possible TONA/OHS. - Worsen hypercapnia as pCO2 116 this morning. The hypercapnia improves to 92 after BiPAP setting was changed. - Continue BiPAP for respiratory support. - Continue diursis for pulmonary edema and continue IV Solu-Medrol and bronchodilators for COPD. - Currently on levofloxacin (Day 5) and cefepime (Day 3). Will continue antibiotics to cover for possible pneumonia at this time. - Given the persistent respiratory failure despite of BiPAP, aggressive diuresis , Solu-Medrol, bronchodilators and antibiotic and potential need of intubation, pulmonology was consulted. Case was discussed with Dr. Daniel and patient will be transferred to ICU for further care. Qualifiers: Respiratory failure complication: hypoxia and hypercapnia Qualified Code(s) : J96.21 - Acute and chronic respiratory failure with hypoxia; J96.22 - Acute and chronic respiratory failure with hypercapnia; J96.22 - Acute and chronic respiratory failure with hypercapnia; J96.22 - Acute and chronic respiratory failure with hypercapnia (2) CHF exacerbation Current Visit: Yes Status: Suspected Assessment and plan: - Echo on 06/24/17 showed LVEF 55-60% with indeterminate diastolic function. - CXR on 08/24/17 showed worsening interstitial and alveolar edema with small bilateral pleural effusions. - Continue IV Lasix to 40 mg BID. - Strict I/O and daily weight. Qualifiers: Heart failure type: diastolic Qualified Code(s): I50.33 - Acute on chronic diastolic (congestive) heart failure (3) Acute exacerbation of chronic obstructive pulmonary disease (COPD) Current Visit: Yes Status: Acute Assessment and plan: - Continue IV Solu-Medrol, bronchodilators and BiPAP. (4) TONA (obstructive sleep apnea) Current Visit: Yes Status: Chronic Assessment and plan: - Continue BiPAP. (5) Obesity hypoventilation syndrome Current Visit: Yes Status: Chronic Assessment and plan: - Continue BiPAP. (6) Hyponatremia Current Visit: No Status: Chronic Assessment and plan: - Improves as 133 today. - Continue to monitor. (7) Schizophrenia Current Visit: Yes Status: Chronic Assessment and plan: - Continue clozapine and Risperdal. Qualifiers: Schizophrenia type: unspecified Qualified Code(s): F20.9 - Schizophrenia, unspecified (8) Tobacco abuse counseling Current Visit: Yes Status: Chronic Assessment and plan: - Okay to use nicotine replacement therapy as needed. (9) DVT prophylaxis Current Visit: Yes Status: Acute Assessment and plan: - Continue SQ heparin. - Subjective Interval history: Patient was seen and examined this morning while patient is still on BiPAP. Patient appears to be somnolent but pushes our hands away when doing bae rubbing. - Constitutional Vitals: Temp Pulse Resp BP Pulse Ox 98.8 F 89 18 140/79 94 08/25/17 07:40 08/25/17 07:40 08/25/17 07:40 08/25/17 07:40 08/25/17 07:40 General appearance: Present: morbidly obese Exam: Somnolent and only response with push bae-rubbing hand away. - Head Head exam: Present: atraumatic, normocephalic - Neck Neck exam general surgery: Present: normal inspection, supple - Respiratory Respiratory exam: Present: decreased breath sounds - Cardiovascular Cardiovascular exam: Present: tachycardia - GI/Abdominal GI/Abdominal exam: Present: normal bowel sounds, soft. Absent: tenderness - Extremities Exam Extremities exam: Present: pedal edema. Absent: cyanotic - Neurological Exam Neurological exam: Absent: facial droop - Skin Skin exam: Present: dry, warm Internal Medicine: Result - Labs CBC & Chem 7: 08/25/17 10:14 08/25/17 10:14 Labs: Short CBC 08/25/17 Range/Units 07:05 WBC 4.7 (4.3-11.1) K/mcL Hgb 15.7 H (11.5-15.4) g/dL Hct 47.5 H (35.3-44.9) % Plt Count 189 (140-400) K/mcL Neutrophils # 3.2 (1.6-8.9) K/mcL - ABG Interpretation ABG results: ABG ABG pH 7.38 pH Units (7.32-7.45) 08/25/17 07:36 ABG pCO2 92 mmHg (35-45) H* D 08/25/17 07:36 ABG pO2 71 mmHg (85-104) L 08/25/17 07:36 ABG O2 Saturation 92 % (95-98) L 08/25/17 07:36 - Impressions Impressions Chest X-Ray 08/24/17 12:18 IMPRESSION: Worsening interstitial and alveolar edema with small bilateral pleural effusions. D/ / Dave Smalls / Dave Smalls Interpreting Provider: Dave Smalls Chest X-Ray 08/25/17 06:35 IMPRESSION: Stable findings consistent with acute congestive heart failure with probable trace bilateral pleural effusions. Mild right lung base atelectasis versus pneumonia. D/ / 08/25/2017 07:57:28 Gregor Gallo MD / Binta Montelongo Interpreting Provider: Gregor Gallo MD Consult Discharge Plan - Plan Instructions: Heart Failure (DC), Chronic Obstructive Pulmonary Disease (DC), Fall Prevention (DC), Cigarette Smoking and Your Health, Line Maintenance Technician (GEN) Referrals: Jono Ramirez, SANITATION TRUCK DRIVER [Primary Care Provider] - <Cooper Schumacher - Last Filed: 08/25/17 19:04> Date of Encounter: 08/25/17 - Assessment and plan (1) Acute and chronic respiratory failure Current Visit: Yes Status: Acute Qualifiers: Respiratory failure complication: hypoxia and hypercapnia Qualified Code(s) : J96.21 - Acute and chronic respiratory failure with hypoxia; J96.22 - Acute and chronic respiratory failure with hypercapnia; J96.22 - Acute and chronic respiratory failure with hypercapnia; J96.22 - Acute and chronic respiratory failure with hypercapnia (2) Acute exacerbation of chronic obstructive pulmonary disease (COPD) Current Visit: Yes Status: Acute (3) CHF exacerbation Current Visit: Yes Status: Suspected Qualifiers: Heart failure type: diastolic Qualified Code(s): I50.33 - Acute on chronic diastolic (congestive) heart failure (4) HLD (hyperlipidemia) Current Visit: Yes Status: Chronic Qualifiers: Hyperlipidemia type: mixed hyperlipidemia Qualified Code(s): E78.2 - Mixed hyperlipidemia (5) Obesity hypoventilation syndrome Current Visit: Yes Status: Chronic (6) Hyponatremia Current Visit: No Status: Chronic (7) Schizophrenia Current Visit: Yes Status: Chronic Qualifiers: Schizophrenia type: unspecified Qualified Code(s): F20.9 - Schizophrenia, unspecified (8) Tobacco abuse Current Visit: Yes Status: Chronic - Constitutional Vitals: Temp Pulse Resp BP Pulse Ox 98.1 F 79 20 93/65 98 08/25/17 15:55 08/25/17 18:00 08/25/17 18:09 08/25/17 18:00 08/25/17 18:09 Internal Medicine: Result - Labs CBC & Chem 7: 08/25/17 10:14 08/25/17 10:14 Labs: Short CBC 08/25/17 08/25/17 Range/Units 07:05 10:14 WBC 4.7 6.8 (4.3-11.1) K/mcL Hgb 15.7 H 15.1 (11.5-15.4) g/dL Hct 47.5 H 45.8 H (35.3-44.9) % Plt Count 189 187 (140-400) K/mcL Neutrophils # 3.2 4.8 (1.6-8.9) K/mcL BMP 08/25/17 08/25/17 07:05 10:14 Sodium 133 L 134 L Potassium 3.5 3.3 L Chloride 79 L 78 L Carbon Dioxide > 45 H* > 45 H* BUN 14 14 Creatinine 0.37 L 0.48 L Glucose 159 H 133 H Calcium 9.2 8.8 Cardiac Enzymes 08/25/17 Range/Units 13:31 Troponin I < 0.03 (< 0.04) ng/mL - ABG Interpretation ABG results: ABG ABG pH 7.37 pH Units (7.32-7.45) 08/25/17 10:01 ABG pCO2 96 mmHg (35-45) H* 08/25/17 10:01 ABG pO2 446 mmHg (85-104) H D 08/25/17 10:01 ABG O2 Saturation 100 % (95-98) H 08/25/17 10:01 - Impressions Impressions Chest X-Ray 08/25/17 06:35 IMPRESSION: Stable findings consistent with acute congestive heart failure with probable trace bilateral pleural effusions. Mild right lung base atelectasis versus pneumonia. D/ / 08/25/2017 07:57:28 Gregor Gallo MD / Binta Montelongo Interpreting Provider: Gregor Gallo MD Abdomen/Pelvis CT 08/25/17 09:46 IMPRESSION: Scattered subsegmental patchy airspace disease is identified, with dominant areas noted in the lower lobes posteriorly with some distal bronchial plugging which may be related to aspiration. No spiculated lung mass or lymphadenopathy seen in the chest. No acute intra-abdominal or pelvic process is identified. Small Schmorl's nodes noted along the superior endplate of T11 and T12, with some increased vertebral body sclerosis and mild compression deformities superiorly of T11. Uncertain if this could be related to a more recent injury with reactive change. This could be assessed with MR imaging if concern for possible recent fracture. Mild patchy sclerosis seen in the proximal left clavicle of uncertain significance, not seen in 2013. Uncertain if this could be related to degenerative change, bone infarct or healed injury. Sclerotic metastasis is felt less likely. D/ / 08/25/2017 14:42:53 Satya Allen MD / tho Interpreting Provider: Satya Allen MD Head CT 08/25/17 09:46 IMPRESSION: No acute intracranial abnormality. D/ / Jonny Meza / Jonny Mzea Interpreting Provider: Jonny Meza Chest X-Ray 08/25/17 09:48 IMPRESSION: 1. Interval intubation. The ET tube distal tip is 4 cm above the mic. 2. Stable mild pulmonary vascular congestion. D/ / Ozzy Macedo MD / Ozzy Macedo MD Interpreting Provider: Ozzy Macedo MD X-Ray 08/25/17 09:52 IMPRESSION: Enteric tube tip in gastric body. Side port in fundus. D/ / 08/25/2017 10:32:43 Williams Dia MD / [email or web address] Interpreting Provider: Williams Dia MD Chest CT 08/25/17 09:58 IMPRESSION: Scattered subsegmental patchy airspace disease is identified, with dominant areas noted in the lower lobes posteriorly with some distal bronchial plugging which may be related to aspiration. No spiculated lung mass or lymphadenopathy seen in the chest. No acute intra-abdominal or pelvic process is identified. Small Schmorl's nodes noted along the superior endplate of T11 and T12, with some increased vertebral body sclerosis and mild compression deformities superiorly of T11. Uncertain if this could be related to a more recent injury with reactive change. This could be assessed with MR imaging if concern for possible recent fracture. Mild patchy sclerosis seen in the proximal left clavicle of uncertain significance, not seen in 2013. Uncertain if this could be related to degenerative change, bone infarct or healed injury. Sclerotic metastasis is felt less likely. D/ / 08/25/2017 14:42:53 Satya Allen MD / tho Interpreting Provider: Satya Allen MD - Attending Attestation I examined this patient and my medical decision-making was reviewed with the Resident Physician on 08/25/17. I agree with the documented findings, disposition and treatment plan as described except to the extent set forth below. Ms Fuller is currently admitted for resp failure. She remains on bipap. She remains high risk due to potential for worsening clinical status. Ms Fuller is less responsive again this AM. Bipap adjusted. No fever or chills. Will not answer questions. Exam Moves arms to sternal rub. Does not respond. Mucus membranes dry Heart reg Diffuse wheeze noted Abd distended slightly at this time. I/P 1. Resp failure - bipap adjusted. Move to ICU today. 2. COPD Further diagnoses and plan as above.
[2017-08-25 08:36] LABS: BUN/Creatinine Ratio 38 (6-26); Blood Urea Nitrogen 14 mg/dL (6-20); Calcium 9.2 mg/dL (8.6-10.3); Carbon Dioxide > 45 mEq/L (23-29); Chloride 79 mEq/L (98-107); Glucose 159 mg/dL (70-105); Osmolality,Calculated 280 (280-300); Potassium 3.5 mEq/L (3.5-5.1); Sodium 133 mEq/L (136-145); eGFR For African Americans > 60 (> 60); eGFR For Non-African Americans > 60 (> 60)
--- NOTE | 2017-08-25 09:43 | Event Note ---
<William Rodriguez - Last Filed: 08/25/17 09:43> Date of Encounter: 08/25/17 Time of Encounter: 09:15 I was notified by nurse Bill for patient having active seizure. Upon entering patient's room at 0915, patient was noted to have diffuse jerking and vomit white vomitus. The BiPAP mask was removed and rapid response was called immediately. Patient's jerking stopped in about a minutes even before ordered Ativan was given. Suction was started at 0917. Patient was noted to have agonal breathing and bedside monitor showed O2 sat 84% with heart rateof 102. Bagging was started and O2 sat increased to 93% at 0921 and further increased to 98% at 0926. 20 mg of IV Etomidate was given and patient was successfully intubated using glidescope by Dr. Estevez at 0929. Bilateral lung sounds were auscultated. Patient remains good oxygenation with 98% on pulse oximetry. 2 mg of Versed was given. OG tube was placed at 0934. Glucose at 129 on AccuCheck at 0936. Propofol was initiated at 0937. Patient was transferred to ICU for further care. <Cooper Schumacher - Last Filed: 08/25/17 19:01> Date of Encounter: 08/25/17 Pt with acute resp failure following aspiration event. Intubated by Dr. Estevez. Remained hemodynamically stable. Agree with above assessment and plan. Transferred to ICU. See PN of today.
[2017-08-25] MEDS ORDERED: Lacri-Lube 3.5 GM TUBE BOTH EYES PRN ×2 (09:48→10:53)
[2017-08-25] MEDS ORDERED: FentaNYL (PF) 1,000 MCG in 0.9 % Sodium Chloride 80 ML IVC SCH (10:00)
--- NOTE | 2017-08-25 10:02 | Pulmonology Consult Note ---
<Jonny Peres - Last Filed: 08/25/17 14:01> Date of Encounter: 08/25/17 Time of Encounter: 09:59 Assessment and Plan (1) Acute and chronic respiratory failure Current Visit: Yes Status: Acute secondary to pulmonary edema, CHF exacerbation, and COPD exacerbation - rapid response called for aspiration patient is now invasively ventilated continue diuresis as BP tolerates william for strict I/Os continue bronchodilators and IV steroids 40 mg TID Levaquin day 5 and Cefepime day 3, will broaden for anaerobes after aspiration event with IV Flagyl 500mg q8h sputum culture pending respiratory and influenza panel pending - INFLUENZA B positive, tamiflu initiated for 5 day treatment stat labs ordered BMP/CBC, lactate, prolactin Qualifiers: Respiratory failure complication: hypoxia and hypercapnia Qualified Code(s) : J96.21 - Acute and chronic respiratory failure with hypoxia; J96.22 - Acute and chronic respiratory failure with hypercapnia; J96.22 - Acute and chronic respiratory failure with hypercapnia; J96.22 - Acute and chronic respiratory failure with hypercapnia (2) Aspiration into airway Current Visit: Yes Status: Acute penicillin allergy broaden antibiotics with Flagyl on 08/25, patient initially already on Cefepime and Levaquin, will continue Qualifiers: Encounter type: initial encounter Qualified Code(s): T17.908A - Unspecified foreign body in respiratory tract, part unspecified causing other injury, initial encounter (3) Influenza B Current Visit: Yes Status: Acute positive FLU B [place] precautions given comorbidities and underlying lung disease will treat with Tamiflu 75mg BID for 5 days (4) Acute exacerbation of congestive heart failure Current Visit: Yes Status: Acute ECHO 06/24/17 - EF 55-60% with indeterminate diastolic dysfunction CXR on 08/24 with worsening interstitial and alveolar edema with small bilateral pleural effusions will obtain CT chest continue IV lasix 40mg BID strict I/Os Qualifiers: Heart failure type: unspecified Qualified Code(s): I50.9 - Heart failure, unspecified (5) Acute exacerbation of chronic obstructive pulmonary disease (COPD) Current Visit: Yes Status: Acute home 3L nasal cannula BiPAP throughout hospital stay with persistent hypercapnia aspiration while on BiPAP, rapid response called resulting in endotracheal intubation continue scheduled Duonebs and IV solu-medrol 40mg TID (6) Observed seizure-like activity Current Visit: Yes Status: Acute prior to aspiration witnessed seizure like activity possibly secondary to hypoxia point of care glucose 129 no reported history of seizure disorder will obtain a CT of the head EEG ordered seizure precautions (7) Morbid obesity due to excess calories Current Visit: Yes Status: Chronic (8) Obesity hypoventilation syndrome Current Visit: Yes Status: Chronic (9) TONA (obstructive sleep apnea) Current Visit: Yes Status: Chronic (10) Schizophrenia Current Visit: Yes Status: Chronic continue home meds Clozapine and Risperdal Qualifiers: Schizophrenia type: unspecified Qualified Code(s): F20.9 - Schizophrenia, unspecified (11) Tobacco abuse Current Visit: Yes Status: Chronic reported 3 pack per day smoker will continue to encourage tobacco cessation when more alert nicotine replacement therapy as needed (12) DVT prophylaxis Current Visit: Yes Status: Acute Heparin History of Present Illness Consult date: 08/25/17 Requesting physician: Cooper Schumacher Reason for consult: dyspnea, other (respiratory failure requiring intubation) Chief complaint: COPD exacerbation, resp failure History of present illness: More is a 57-year-old female who was transferred to [facility] intensive care unit after a rapid response for aspiration to the airway and acute respiratory failure. Patient was subsequently intubated. Please see event note for further details. Pulmonology/Critical Care team consulted for continued management. History of present illness obtained through emergency physician documentation and hospitalist history and physical as patient is unable to provide any further history due to current medical state. In short, patient was admitted to [facility] on 08/21/2017 for acute on chronic respiratory failure likely secondary to COPD and CHF exacerbation. She presented to the emergency room from residential with complaints of shortness of breath and productive cough. Symptoms were going on for 3 days prior to admission. On admission she was found to be hypoxic requiring more oxygen than her 3 L nasal cannula at home with bilateral wheezing. Chest x-ray was unremarkable for pneumonia. During her course she has been requiring BiPAP and has had issues with CO2 retention. She has been diuresis and well but without significant improvement in her respiratory status. On 08/25/2017 patient had an episode of seizure like activity with aspiration into her airway. Rapid response was called and required emergent intubation. POC glucose 129. ABG prior to intubation revealed respiratory acidosis 7.29, CO2 116, 02 48, bicarb 55. ABG after intubation revealed some compensation 7.37, CO2 96. She is currently being worked up for sepsis as well as osman scan when stable. EEG emergently performed. She did not require any abortive medications. Past Med Surg Social Fam HX - Past Medical History Medical history: COPD, hyperlipidemia, hypertension, other Psychiatric history: anxiety, depression, schizophrenia - Past Surgical History Surgical History: no surgical history - Social History Smoking Status: Current every day smoker Smokeless Tobacco Status: No Alcohol use: none Drug use: none - Family History Father Family Member Ethnicity: Non- Hx Family Endocrine Disorder: Yes (DM) Mother Family Member Ethnicity: Non- Living Status: Still Living Brother Family Member Ethnicity: Non- Living Status: Still Living Hx Family Endocrine Disorder: Yes (DIABETES MELLITUS.) Medications and Allergies Acetaminophen [Tylenol] 500 mg PO PRN PRN 08/21/17 [History] Aspirin [Lo-Dose Aspirin EC] 81 mg PO DAILY 08/21/17 [History] Atorvastatin Calcium [Lipitor] 20 mg PO DAILY 08/21/17 [History] Benztropine Mesylate 2 mg PO BID 08/21/17 [History] Calcium Carbonate [Antacid Ultra Strength] 1,177 mg PO PRN 08/21/17 [History] Cholecalciferol (Vitamin D3) [Vitamin D3] 1,000 unit PO DAILY 08/21/17 [History] CloZAPine [Fazaclo] 400 mg PO HS 08/21/17 [History] Divalproex (12 HR) [Depakote (12 HR)] 250 mg PO HS 08/21/17 [History] Ergocalciferol (VITAMIN D2) [Vitamin D] 400 unit PO DAILY 08/21/17 [History] Metoprolol Succinate [Toprol Xl] 12.5 mg PO DAILY 08/21/17 [History] Montelukast [Singulair] 10 mg PO HS 08/21/17 [History] Omeprazole [PriLOSEC] 20 mg PO DAILY 08/21/17 [History] Oxybutynin Chloride [Ditropan Xl] 5 mg PO 1-2XD 08/21/17 [History] Potassium Chloride [K-Tab ER] 20 meq PO DAILY 08/21/17 [History] Sennosides/Docusate Sodium [Senna Plus] 1 each PO DAILY 08/21/17 [History] risperiDONE [RisperDAL] 3 mg PO BID 08/21/17 [History] CloZAPine [Fazaclo] 200 mg PO QAM 08/23/17 [History] Divalproex (24 HR) [Depakote ER (24 HR)] 500 mg PO BID 08/23/17 [History] 3 Allergy/AdvReac Type Severity Reaction Status Date / Time Penicillins Allergy Hives Verified 08/21/17 02:23 ROS unobtainable: due to endotracheal tube, due to mental status All Systems: The remainder of the systems were reviewed and are negative Physical Examination Vital Signs: Vital Signs, Last 4 Hours Temp Pulse Resp BP Pulse Ox 08/25/17 07:40 98.8 F 89 18 140/79 94 08/25/17 07:27 23 94 08/25/17 06:23 27 94 General appearance: other (obese, sedated, intubated) Eyes: nonicteric ENT: oropharynx moist Neck: supple Effort: other (mechanically ventilated) Auscultation: bilateral: diminished breath sounds Gastrointestinal: normoactive bowel sounds, soft, non-tender, other (obese abdomen) Integumentary: normal Extremities: no cyanosis, no edema, no clubbing, pink and warm Musculoskeletal: no deformities unable to assess due to mental status other (unable to assess) Results - Laboratory Findings CBC and BMP: 08/25/17 10:14 08/25/17 10:14 ABG ABG pH 7.38 pH Units (7.32-7.45) 08/25/17 07:36 ABG pCO2 92 mmHg (35-45) H* D 08/25/17 07:36 ABG pO2 71 mmHg (85-104) L 08/25/17 07:36 ABG O2 Saturation 92 % (95-98) L 08/25/17 07:36 Abnormal lab findings: Abnormal lab results RBC 5.29 M/mcL (3.82-4.97) H 08/25/17 07:05 Hgb 15.7 g/dL (11.5-15.4) H 08/25/17 07:05 Hct 47.5 % (35.3-44.9) H 08/25/17 07:05 ABG pCO2 92 mmHg (35-45) H* D 08/25/17 07:36 ABG pO2 71 mmHg (85-104) L 08/25/17 07:36 ABG HCO3 54 mEq/L (21-27) H 08/25/17 07:36 ABG Total CO2 57 mEq/L (20-26) H 08/25/17 07:36 ABG O2 Saturation 92 % (95-98) L 08/25/17 07:36 ABG Base Excess 22 mEq/L (-2 to 3) H 08/25/17 07:36 Sodium 133 mEq/L (136-145) L 08/25/17 07:05 Chloride 79 mEq/L (98-107) L 08/25/17 07:05 Carbon Dioxide > 45 mEq/L (23-29) H* 08/25/17 07:05 Creatinine 0.37 mg/dL (0.60-1.20) L 08/25/17 07:05 BUN/Creatinine Ratio 38 (6-26) H 08/25/17 07:05 Glucose 159 mg/dL (70-105) H 08/25/17 07:05 POC Glucose 145 mg/dL (58-89) H 08/25/17 05:50 B-Natriuretic Peptide 132 pg/mL (Less than 100) H 08/21/17 02:43 - Clinical Findings Intake & Output: Intake & Output 08/24/17 08/25/17 08/25/17 23:59 07:59 15:59 Intake Total 720 / 720 0 / 0 Output Total 1750 / 1750 750 / 750 Balance -1030 / -1030 -750 / -750 Weight 100.2 kg Consult Discharge Plan - Plan Instructions: Heart Failure (DC), Chronic Obstructive Pulmonary Disease (DC), Fall Prevention (DC), Cigarette Smoking and Your Health, [place] (GEN) Referrals: Jono Ramirez, [employer]ADER [Primary Care Provider] - <Deandre Daniel - Last Filed: 08/25/17 14:28> Date of Encounter: 08/25/17 All Systems: The remainder of the systems were reviewed and are negative Physical Examination Vital Signs: Vital Signs, Last 4 Hours Temp Pulse Resp BP Pulse Ox 08/25/17 13:12 20 94/56 99 08/25/17 13:00 83 20 94/56 99 08/25/17 12:04 99.7 F H 08/25/17 12:00 86 20 109/61 99 08/25/17 11:52 20 94 08/25/17 11:00 92 20 105/56 95 Ventilator Settings Ventilator Settings: Ventilator Settings, Last 8 Hours Ventilator Mode A/C Ventilator Mode A/C Ventilator Mode A/C Ventilator Mode A/C Ventilator Mode A/C Ventilator Mode A/C Ventilator Mode A/C Ventilator Mode A/C Ventilator Mode A/C Ventilator Tidal Volume 450 Setting Ventilator Tidal Volume 450 Setting Ventilator Tidal Volume 450 Setting Ventilator Tidal Volume 450 Setting Ventilator Tidal Volume 450 Setting Ventilator Tidal Volume 450 Setting Ventilator Tidal Volume 450 Setting Ventilator Tidal Volume 450 Setting Ventilator Tidal Volume 450 Setting Ventilator Respiratory Rate 20 Setting Ventilator Respiratory Rate 20 Setting Ventilator Respiratory Rate 20 Setting Ventilator Respiratory Rate 20 Setting Ventilator Respiratory Rate 20 Setting Ventilator Respiratory Rate 20 Setting Ventilator Respiratory Rate 20 Setting Ventilator Respiratory Rate 20 Setting Ventilator Respiratory Rate 20 Setting Actual Respiratory Rate 20 Actual Respiratory Rate 20 Actual Respiratory Rate 20 Actual Respiratory Rate 20 Actual Respiratory Rate 20 Actual Respiratory Rate 20 Actual Respiratory Rate 20 Actual Respiratory Rate 20 Positive End Expiratory 10 Pressure Positive End Expiratory 10 Pressure Positive End Expiratory 10 Pressure Positive End Expiratory 10 Pressure Positive End Expiratory 10 Pressure Positive End Expiratory 10 Pressure Positive End Expiratory 10 Pressure Positive End Expiratory 10 Pressure Positive End Expiratory 10 Pressure Peak Inspiratory Airway 37 Pressure Peak Inspiratory Airway 41 Pressure Peak Inspiratory Airway 40 Pressure Peak Inspiratory Airway 39 Pressure Peak Inspiratory Airway 40 Pressure Peak Inspiratory Airway 35 Pressure Results - Laboratory Findings CBC and BMP: 08/25/17 10:14 08/25/17 10:14 ABG ABG pH 7.37 pH Units (7.32-7.45) 08/25/17 10:01 ABG pCO2 96 mmHg (35-45) H* 08/25/17 10:01 ABG pO2 446 mmHg (85-104) H D 08/25/17 10:01 ABG O2 Saturation 100 % (95-98) H 08/25/17 10:01 Abnormal lab findings: Abnormal lab results RBC 5.11 M/mcL (3.82-4.97) H 08/25/17 10:14 Hct 45.8 % (35.3-44.9) H 08/25/17 10:14 ABG pCO2 96 mmHg (35-45) H* 08/25/17 10:01 ABG pO2 446 mmHg (85-104) H D 08/25/17 10:01 ABG HCO3 56 mEq/L (21-27) H 08/25/17 10:01 ABG Total CO2 59 mEq/L (20-26) H 08/25/17 10:01 ABG O2 Saturation 100 % (95-98) H 08/25/17 10:01 ABG Base Excess 23 mEq/L (-2 to 3) H 08/25/17 10:01 Sodium 134 mEq/L (136-145) L 08/25/17 10:14 Potassium 3.3 mEq/L (3.5-5.1) L 08/25/17 10:14 Chloride 78 mEq/L (98-107) L 08/25/17 10:14 Carbon Dioxide > 45 mEq/L (23-29) H* 08/25/17 10:14 Creatinine 0.48 mg/dL (0.60-1.20) L 08/25/17 10:14 BUN/Creatinine Ratio 29 (6-26) H 08/25/17 10:14 Glucose 133 mg/dL (70-105) H 08/25/17 10:14 POC Glucose 120 mg/dL (70-99) H 08/25/17 11:44 Venous Ioniz Calcium 0.98 mmol/L (1.15-1.35) L 08/25/17 13:49 B-Natriuretic Peptide 132 pg/mL (Less than 100) H 08/21/17 02:43 Influenza Type B (PCR) Positive (Negative) A 08/25/17 09:50 - Clinical Findings Intake & Output: Intake & Output 08/24/17 08/25/17 08/25/17 23:59 07:59 15:59 Intake Total 720 / 720 0 / 0 0 / 0 Output Total 1750 / 1750 750 / 750 125 / 125 Balance -1030 / -1030 -750 / -750 -125 / -125 Weight 100.2 kg - Attending Attestation I examined this patient and my medical decision-making was reviewed with the Resident Physician. I agree with the documented findings, disposition and treatment plan as described except to the extent set forth below. We independently had [id number] contact with the patient I spent 35miin of Critical Care time with this patient. It involved decision making of high complexity to assess, manipulate, and support vital organ system failure and/or to prevent further life threatening deterioration of the patient' s condition. The time involved in the performance of separately reportable procedures was not counted toward critical care time. Patient seen and examined at bedside Labs, radiology, chart personally reviewed. Management was reviewed during multidisciplinary critical care rounds. 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: Acute encephalopathy which is multifactorial including hypoxia and hypercarbia; generalized seizure likely related to metabolic derangement hypoxia and hypercarbia CT head pending along with EEG consult neurology based upon results; encouraging patient has been able to move all extremities although she is not able to follow commands as of yet, continue sedation while on ventilator with goal Day 2-3; patient has history of schizophrenia we will resume home psychotropic medications as able; course is further complicated by underlying obesity hypoventilation syndrome and obstructive sleep apnea Pulm: Acute on chronic hypoxic hypercarbic respiratory failure requiring emergent intubation secondary to aspiration while on noninvasive ventilation I suspect underlying COPD exacerbation as well Cards: Blood pressure monitored and stable she has had persistent bigeminy history of diastolic dysfunction and pulmonary hypertension and right ventricular dilation which is likely secondary to both 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 Lines: All lines examined without evidence of infection : Dispo: ICU for critical illness CODE: Full
[2017-08-25 10:09] LABS: ABG Base Excess 23 mEq/L (-2 to 3); ABG HCO3 56 mEq/L (21-27); ABG Oxygen Saturation 100 % (95-98); ABG PCO2 96 mmHg (35-45); ABG PH 7.37 pH Units (7.32-7.45); ABG PO2 446 mmHg (85-104); ABG TCO2 59 mEq/L (20-26); Blood Gas Modality ASSIST CONTROL; Blood Gas PEEP 10 cm H2O; Blood Gas Respiration Rate 20; Blood Gas VT 450 cc
[2017-08-25 10:32] LABS: Basophils % 0.1 %; Hematocrit 45.8 % (35.3-44.9); Hemoglobin 15.1 g/dL (11.5-15.4); Immature Granulocytes % 0.6 % (0-4); Lymphocytes # 0.9 K/mcL (0.6-4.6); Lymphocytes % 13.1 %; Mean Corpuscular Hemoglobin 29.5 pg (28.0-33.3); Mean Corpuscular Volume 89.6 fL (83.0-100.0); Mean Platelet Volume 9.5 fL (9.4-12.4); Monocytes # 1.1 K/mcL (0.0-1.3); Monocytes % 15.5 %; Neutrophils # 4.8 K/mcL (1.6-8.9); Platelet Count 187 K/mcL (140-400); Red Blood Count 5.11 M/mcL (3.82-4.97); Red Cell Distribution Width 13.5 % (11.5-14.5); Segmented Neutrophils % 70.7 %
[2017-08-25] MEDS ORDERED: Naloxone 0.4 MG/ML INJ IVP PRN (10:53)
[2017-08-25 10:59] LABS: BUN/Creatinine Ratio 29 (6-26); Blood Urea Nitrogen 14 mg/dL (6-20); Calcium 8.8 mg/dL (8.6-10.3); Carbon Dioxide > 45 mEq/L (23-29); Chloride 78 mEq/L (98-107); Glucose 133 mg/dL (70-105); Osmolality,Calculated 280 (280-300); Potassium 3.3 mEq/L (3.5-5.1); Sodium 134 mEq/L (136-145); eGFR For African Americans > 60 (> 60); eGFR For Non-African Americans > 60 (> 60)
--- NOTE | 2017-08-25 11:20 | Procedure Note ---
Date of procedure: 08/25/17 Pre-op diagnosis: Respiratory Failure Post-op diagnosis: same Procedure: Endotracheal intubation Was there an housekeeper/laundry assistant present: No Estimated blood loss (cc): 0 Specimen: none Pathology: none sent Disposition: ICU Procedures: Internal Med - Intubation Time out performed: No (Emergent procedure ) Sedative: Etomidate Amount Given: 20 Laryngoscope: glidescope ET tube size: 7.5 Tube secured depth (cm): 23 Tube placement confirmation: visualized tube passing through cords, equal breath sounds bilaterally, no breath sounds over epigastrium, confirmation by capnometry Patient tolerated procedure: well, no complications Intubation complications: none
[2017-08-25 11:59] LABS: Influenza A PCR Negative (Negative); Influenza B PCR Positive (Negative)
[2017-08-25] MEDS ORDERED: Lacri-Lube 3.5 GM TUBE BOTH EYES SCH (12:00)
[2017-08-25] MEDS ORDERED: Dextrose Gel 15 GM/37.5 ML TUBE PO PRN ×2 (12:07)
[2017-08-25] MEDS ORDERED: D5% in Water 1,000 ML IVC PRN (12:07)
[2017-08-25] MEDS ORDERED: Potassium Phosphate 44 MEQ in 0.9 % Sodium Chloride 250 ML IVPB PRN (12:07)
[2017-08-25] MEDS ORDERED: *HR* Dextrose 50 % in Water (Syg) 50 ML SYRINGE IVP PRN (12:07)
[2017-08-25] MEDS ORDERED: *HR* Etomidate 40 MG/20 ML VIAL IVP ONE (12:31)
[2017-08-25] MEDS ORDERED: *HR* Midazolam HCl 5 MG/5 ML VIAL IVP ONE (12:31)
[2017-08-25] MEDS ORDERED: Potassium Chloride Elixir 20 MEQ/15 ML UDC GTUBE ONE (12:31)
[2017-08-25] MEDS: Lacri-Lube 3.5 GM TUBE BOTH EYES SCH ×4 (12:50→23:45)
[2017-08-25 13:52] LABS: VBG Ionized Calcium 0.98 mmol/L (1.15-1.35)
[2017-08-25 14:12] LABS: Troponin I < 0.03 ng/mL (< 0.04)
[2017-08-25 15:04] LABS: Creatine Kinase 14 Units/L (30-223); Magnesium 1.7 mg/dL (1.6-2.6); Phosphorous 2.1 mg/dL (2.7-4.5)
[2017-08-25] MEDS: MethylPREDNISolone 40 MG/ML VIAL IVP SCH ×2 (15:22→20:37)
[2017-08-25] MEDS: MetroNIDAZOLE 500 MG/100 ML 500 MG/100 ML BAG IVPB SCH ×2 (15:23→23:45)
[2017-08-25] MEDS: Oseltamivir 6 MG/ML UDC PO SCH ×2 (15:26→20:58)
[2017-08-25] MEDS ORDERED: MetroNIDAZOLE 500 MG/100 ML 500 MG/100 ML BAG IVPB SCH (16:00)
--- NOTE | 2017-08-25 16:16 | EEG/EMG/Oth Biometrics Report ---
EEG Procedure Report Date of procedure: 08/25/17 EEG Procedure: Routine EEG Procedure Note: This is a report of a 21 channel bipolar and referential montage EEG. There is no posterior dominant alpha rhythm identified at any time during the recording. The resting background rhythm consists of mixed moderate to low voltage theta and delta frequencies. This rhythm is poorly organized and poorly sustained. Hyperventilation is not performed in recording. Periodic coughing is identified during the study and does result in artifactual change in the background recording. There is no sleep architecture identified during the study. Photic stimulation is performed and does not produce a driving response. The EKG rhythm strip reveals normal sinus rhythm with an irregular rate at about 86. Beats per minute. Impressions: This EEG recording is abnormal consistent with a moderate to severe generalized encephalopathy. There is no evidence of epileptiform activity identified during the study. Comment: An EEG without seizure activity does not preclude or rule out the possibility of seizure or epilepsy. If the clinical suspicion for seizure activity is high, serial EEGs or perhaps a prolonged recording may increase the yield. Cardiac irregularities are also identified. Please correlate clinically.
[2017-08-25] MEDS: Furosemide 40 MG/4 ML VIAL IVP SCH (16:59)
[2017-08-25] MEDS: FentaNYL (PF) 1,000 MCG in 0.9 % Sodium Chloride 80 ML IVC SCH (17:53)
[2017-08-25] MEDS: Chlorhexidine Rinse 15 ML MOUTHWASH MM SCH (20:37)
[2017-08-25] MEDS: Sennosides/Docusate Sodium TABLET GTUBE SCH (20:38)
[2017-08-25] MEDS: RisperiDAL 3 MG TABLET GTUBE SCH (20:38)
[2017-08-25 20:56] LABS: VBG Ionized Calcium 0.93 mmol/L (1.15-1.35); VBG PH 7.65 pH Units (7.32-7.42)
[2017-08-25] MEDS ORDERED: Chlorhexidine Rinse 15 ML MOUTHWASH MM SCH (21:00)
[2017-08-25] MEDS ORDERED: RisperiDAL 3 MG TABLET PO SCH (21:00)
[2017-08-25 21:07] LABS: VBG Ionized Calcium 0.92 mmol/L (1.15-1.35)
[2017-08-26 01:35] LABS: Hematocrit 43.6 % (35.3-44.9); Hemoglobin 14.5 g/dL (11.5-15.4); Immature Granulocytes % 0.2 % (0-4); Lymphocytes # 0.6 K/mcL (0.6-4.6); Lymphocytes % 12.8 %; Mean Corpuscular HGB Conc 33.3 g/dL (31.6-35.5); Mean Corpuscular Hemoglobin 29.4 pg (28.0-33.3); Mean Corpuscular Volume 88.3 fL (83.0-100.0); Mean Platelet Volume 10.1 fL (9.4-12.4); Monocytes # 0.5 K/mcL (0.0-1.3); Monocytes % 10.6 %; Neutrophils # 3.3 K/mcL (1.6-8.9); Platelet Count 186 K/mcL (140-400); Red Blood Count 4.94 M/mcL (3.82-4.97); Red Cell Distribution Width 13.6 % (11.5-14.5); Segmented Neutrophils % 76.4 %
[2017-08-26 01:54] LABS: Magnesium 2.5 mg/dL (1.6-2.6); Phosphorous 3.8 mg/dL (2.7-4.5); Potassium 2.8 mEq/L (3.5-5.1)
[2017-08-26 01:58] LABS: BUN/Creatinine Ratio 40 (6-26); Blood Urea Nitrogen 16 mg/dL (6-20); Calcium 9.2 mg/dL (8.6-10.3); Carbon Dioxide 45 mEq/L (23-29); Chloride 81 mEq/L (98-107); Glucose 193 mg/dL (70-105); Magnesium 2.6 mg/dL (1.6-2.6); Osmolality,Calculated 286 (280-300); Potassium 2.7 mEq/L (3.5-5.1); Sodium 135 mEq/L (136-145); eGFR For African Americans > 60 (> 60); eGFR For Non-African Americans > 60 (> 60)
[2017-08-26] MEDS: Cefepime HCl 1,000 MG in Water for inj. (sterile) 20 ML 10 ML IVPB SCH ×2 (03:27→15:15)
[2017-08-26] MEDS: Ipratropium/Albuterol Neb 3 ML IH SCH ×6 (03:32→23:40)
[2017-08-26] MEDS: Lacri-Lube 3.5 GM TUBE BOTH EYES SCH ×5 (03:37→20:07)
[2017-08-26 03:43] LABS: VBG Ionized Calcium 0.99 mmol/L (1.15-1.35)
[2017-08-26 05:26] LABS: ABG Base Excess 22 mEq/L (-2 to 3); ABG HCO3 47 mEq/L (21-27); ABG Oxygen Saturation 96 % (95-98); ABG PCO2 47 mmHg (35-45); ABG PO2 68 mmHg (85-104); ABG TCO2 48 mEq/L (20-26); Blood Gas Modality ASSIST CONTROL; Blood Gas PEEP 10 cm H2O; Blood Gas Respiration Rate 20; Blood Gas VT 450 cc
[2017-08-26] MEDS: *HR* Heparin 5,000 UNIT/ML VIAL SQ SCH ×3 (05:41→21:33)
[2017-08-26] MEDS: FentaNYL (PF) 1,000 MCG in 0.9 % Sodium Chloride 80 ML IVC SCH (07:02)
--- NOTE | 2017-08-26 07:22 | Pulmonology Progress Note ---
<FredyDeandre W - Last Filed: 08/26/17 11:12> Date of Encounter: 08/26/17 Objective PUL Vital signs: Last Vital Signs Temp 98.0 F 08/26/17 07:19 Pulse 77 08/26/17 11:00 Resp 12 08/26/17 11:00 BP 104/67 08/26/17 11:00 Pulse Ox 90 08/26/17 11:00 Ventilator Settings Ventilator Settings: Ventilator Settings, Last 8 Hours Ventilator Mode A/C Ventilator Mode A/C Ventilator Mode A/C Ventilator Mode A/C Ventilator Mode A/C Ventilator Mode A/C Ventilator Mode A/C Ventilator Mode A/C Ventilator Mode A/C Ventilator Mode A/C Ventilator Mode A/C Ventilator Mode A/C Ventilator Mode A/C Ventilator Tidal Volume 450 Setting Ventilator Tidal Volume 450 Setting Ventilator Tidal Volume 450 Setting Ventilator Tidal Volume 450 Setting Ventilator Tidal Volume 450 Setting Ventilator Tidal Volume 450 Setting Ventilator Tidal Volume 450 Setting Ventilator Tidal Volume 450 Setting Ventilator Tidal Volume 450 Setting Ventilator Tidal Volume 450 Setting Ventilator Tidal Volume 450 Setting Ventilator Tidal Volume 450 Setting Ventilator Tidal Volume 450 Setting Ventilator Respiratory Rate 12 Setting Ventilator Respiratory Rate 12 Setting Ventilator Respiratory Rate 12 Setting Ventilator Respiratory Rate 14 Setting Ventilator Respiratory Rate 16 Setting Ventilator Respiratory Rate 16 Setting Ventilator Respiratory Rate 14 Setting Ventilator Respiratory Rate 16 Setting Ventilator Respiratory Rate 16 Setting Ventilator Respiratory Rate 20 Setting Ventilator Respiratory Rate 16 Setting Ventilator Respiratory Rate 20 Setting Ventilator Respiratory Rate 20 Setting Actual Respiratory Rate 12 Actual Respiratory Rate 12 Actual Respiratory Rate 16 Actual Respiratory Rate 14 Actual Respiratory Rate 16 Actual Respiratory Rate 14 Actual Respiratory Rate 16 Actual Respiratory Rate 16 Actual Respiratory Rate 16 Actual Respiratory Rate 20 Actual Respiratory Rate 20 Positive End Expiratory 8 Pressure Positive End Expiratory 8 Pressure Positive End Expiratory 8 Pressure Positive End Expiratory 8 Pressure Positive End Expiratory 8 Pressure Positive End Expiratory 8 Pressure Positive End Expiratory 8 Pressure Positive End Expiratory 10 Pressure Positive End Expiratory 10 Pressure Positive End Expiratory 10 Pressure Positive End Expiratory 10 Pressure Positive End Expiratory 10 Pressure Positive End Expiratory 10 Pressure Peak Inspiratory Airway 34 Pressure Peak Inspiratory Airway 33 Pressure Peak Inspiratory Airway 32 Pressure Peak Inspiratory Airway 32 Pressure Peak Inspiratory Airway 37 Pressure Peak Inspiratory Airway 37 Pressure Peak Inspiratory Airway 39 Pressure Peak Inspiratory Airway 39 Pressure Peak Inspiratory Airway 38 Pressure Peak Inspiratory Airway 40 Pressure Results - Laboratory Findings CBC and BMP: 08/26/17 00:56 08/26/17 08:51 ABG ABG pH 7.52 pH Units (7.32-7.45) H 08/26/17 07:43 ABG pCO2 58 mmHg (35-45) H 08/26/17 07:43 ABG pO2 61 mmHg (85-104) L 08/26/17 07:43 ABG O2 Saturation 92 % (95-98) L 08/26/17 07:43 Abnormal lab findings: Abnormal lab results ABG pH 7.52 pH Units (7.32-7.45) H 08/26/17 07:43 ABG pCO2 58 mmHg (35-45) H 08/26/17 07:43 ABG pO2 61 mmHg (85-104) L 08/26/17 07:43 ABG HCO3 47 mEq/L (21-27) H 08/26/17 07:43 ABG Total CO2 49 mEq/L (20-26) H 08/26/17 07:43 ABG O2 Saturation 92 % (95-98) L 08/26/17 07:43 ABG Base Excess 21 mEq/L (-2 to 3) H 08/26/17 07:43 VBG pH 7.65 pH Units (7.32-7.42) H* 08/25/17 20:38 Sodium 135 mEq/L (136-145) L 08/26/17 00:56 Potassium 3.0 mEq/L (3.5-5.1) L 08/26/17 08:51 Chloride 81 mEq/L (98-107) L 08/26/17 00:56 Carbon Dioxide 45 mEq/L (23-29) H* 08/26/17 00:56 Creatinine 0.40 mg/dL (0.60-1.20) L 08/26/17 00:56 BUN/Creatinine Ratio 40 (6-26) H 08/26/17 00:56 Glucose 193 mg/dL (70-105) H 08/26/17 00:56 POC Glucose 140 mg/dL (70-99) H 08/26/17 05:51 Venous Ioniz Calcium 1.05 mmol/L (1.15-1.35) L 08/26/17 09:04 Creatine Kinase 14 Units/L (30-223) L 08/25/17 13:31 B-Natriuretic Peptide 132 pg/mL (Less than 100) H 08/21/17 02:43 Influenza Type B (PCR) Positive (Negative) A 08/25/17 09:50 - Clinical Findings Intake & Output: Intake & Output 08/25/17 08/26/17 08/26/17 23:59 07:59 15:59 Intake Total 991 / 991 909 / 909 160 / 160 Output Total 1250 / 1250 650 / 650 Balance -259 / -259 259 / 259 160 / 160 Weight 97.6 kg Consult Discharge Plan - Plan Instructions: Heart Failure (DC), Chronic Obstructive Pulmonary Disease (DC), Fall Prevention (DC), Cigarette Smoking and Your Health, [employer]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 I agree with the documented findings, disposition and treatment plan as described except to the extent set forth below. We independently had [id number] contact with the patient Patient seen and examined at bedside Labs, radiology, chart personally reviewed. Management was reviewed during multidisciplinary critical care rounds. 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 No further episodes of seizures that were witnessed. EEG is not consistent with epileptiform activity continue home antiepileptic medications along with anti- psychotics. CT head was negative for acute process Pulm: Acute on chronic hypoxic hypercapnic respiratory failure secondary to aspiration with pneumonia on vent vent adjusted for his severe respiratory alkalosis by decreasing minute ventilation this has helped. Also aggressively replete potassium and chloride and give a dose of Diamox. We will consider spontaneous breathing trial later in the day Cards: blood pressure stable she remains in bigeminy restart home beta keyur hold diuresis because of alkalosis FEN-GI: holding enteral nutrition because of high output from the OG without evidence of obstruction on CT of the abdomen we will start aggressive bowel regimen today; GI prophylaxis has been given Renal: urine output monitored electrolytes monitored and replaced per protocol ID: treating for pneumonia including aspiration organisms. Stop Levaquin Heme/Onc: GI prophylaxis given Endo: Glucose Monitored Integ/MSK: Skin Care per routine ICU Nursing Protocol to prevent ulcers. Lines: All lines examined without evidence of infection : Dispo: ICU for vent management CODE: full <Jonny Peres - Last Filed: 08/26/17 12:25> Date of Encounter: 08/26/17 Time of Encounter: 07:22 Assessment and Plan (1) Acute and chronic respiratory failure Current Visit: Yes Status: Acute secondary to pulmonary edema, CHF exacerbation, and COPD exacerbation - rapid response called for aspiration patient is now invasively ventilated william for strict I/Os continue bronchodilators and IV steroids 40 mg TID Levaquin day 6 and Cefepime day 4, will broaden for anaerobes after aspiration event with IV Flagyl 500mg q8h - DE-ESCALATE to Cefepime and Flagyl on 08/26 sputum culture pending INFLUENZA B positive, tamiflu initiated for 5 day treatment ABG today, mixed respiratory and metabolic alkalosis 7.60/47/68/47 - x1 dose Acetazolamide 500mg - continue to monitor and consider another one time dose Qualifiers: Respiratory failure complication: hypoxia and hypercapnia Qualified Code(s) : J96.21 - Acute and chronic respiratory failure with hypoxia; J96.22 - Acute and chronic respiratory failure with hypercapnia; J96.22 - Acute and chronic respiratory failure with hypercapnia; J96.22 - Acute and chronic respiratory failure with hypercapnia (2) Aspiration into airway Current Visit: Yes Status: Acute penicillin allergy broaden antibiotics with Flagyl on 08/25 CT chest 08/25 with findings suggestive of aspiration with scattered opacities Qualifiers: Encounter type: initial encounter Qualified Code(s): T17.908A - Unspecified foreign body in respiratory tract, part unspecified causing other injury, initial encounter (3) Influenza B Current Visit: Yes Status: Acute positive FLU B [place] precautions given comorbidities and underlying lung disease will treat with Tamiflu 75mg BID for 5 days (4) Metabolic acidosis with respiratory alkalosis Current Visit: Yes Status: Acute vent changes made continue to monitor ABGs x1 dose Acetazolamide 500mg - consider repeating dose tomorrow discontinued Lasix (5) Acute exacerbation of congestive heart failure Current Visit: Yes Status: Acute ECHO 06/24/17 - EF 55-60% with indeterminate diastolic dysfunction CXR on 08/24 with worsening interstitial and alveolar edema with small bilateral pleural effusions CT chest 08/25 - scattered subsegmental patchy airspace may be related to aspiration strict I/Os Qualifiers: Heart failure type: unspecified Qualified Code(s): I50.9 - Heart failure, unspecified (6) Acute exacerbation of chronic obstructive pulmonary disease (COPD) Current Visit: Yes Status: Acute home 3L nasal cannula BiPAP throughout hospital stay with persistent hypercapnia aspiration while on BiPAP, rapid response called resulting in endotracheal intubation continue scheduled Duonebs and IV solu-medrol 40mg TID (7) Hypokalemia Current Visit: Yes Status: Acute K 2.8 Magnesium 2.5 continue to replete with IV and PO KCl PRN continue to monitor discontinued Lasix as this could be contributing (8) Observed seizure-like activity Current Visit: Yes Status: Acute prior to aspiration witnessed seizure like activity possibly secondary to hypoxia point of care glucose 129 review of home medications consistent with seizure disorder, will continue home dose Valproic Acid CT of the head 08/25 - unremarkable for hemorrhage or mass EEG shows severe encephalopathy without epilepiform activity seizure precautions (9) Morbid obesity due to excess calories Current Visit: Yes Status: Chronic start TF per nutrition recommendations incidental findings on CT scan Abdomen/Pelvis CT 08/25/17 09:46 IMPRESSION: Scattered subsegmental patchy airspace disease is identified, with dominant areas noted in the lower lobes posteriorly with some distal bronchial plugging which may be related to aspiration. No spiculated lung mass or lymphadenopathy seen in the chest. No acute intra-abdominal or pelvic process is identified. Small Schmorl's nodes noted along the superior endplate of T11 and T12, with some increased vertebral body sclerosis and mild compression deformities superiorly of T11. Uncertain if this could be related to a more recent injury with reactive change. This could be assessed with MR imaging if concern for possible recent fracture. Mild patchy sclerosis seen in the proximal left clavicle of uncertain significance, not seen in 2013. Uncertain if this could be related to degenerative change, bone infarct or healed injury. Sclerotic metastasis is felt less likely. D/ / 08/25/2017 14:42:53 Satya Allen MD / tho Interpreting Provider: Satya Allen MD Head CT 08/25/17 09:46 IMPRESSION: No acute intracranial abnormality. D/ / Jonny Meza / Jonny Meza Interpreting Provider: Jonny Meza Chest X-Ray 08/25/17 09:48 IMPRESSION: 1. Interval intubation. The ET tube distal tip is 4 cm above the mic. 2. Stable mild pulmonary vascular congestion. D/ / Ozzy Macedo MD / Ozzy Macedo MD Interpreting Provider: Ozzy Macedo MD X-Ray 08/25/17 09:52 IMPRESSION: Enteric tube tip in gastric body. Side port in fundus. D/ / 08/25/2017 10:32:43 Williams Dia MD / yoshi Interpreting Provider: Williams Dia MD Chest CT 08/25/17 09:58 IMPRESSION: Scattered subsegmental patchy airspace disease is identified, with dominant areas noted in the lower lobes posteriorly with some distal bronchial plugging which may be related to aspiration. No spiculated lung mass or lymphadenopathy seen in the chest. No acute intra-abdominal or pelvic process is identified. Small Schmorl's nodes noted along the superior endplate of T11 and T12, with some increased vertebral body sclerosis and mild compression deformities superiorly of T11. Uncertain if this could be related to a more recent injury with reactive change. This could be assessed with MR imaging if concern for possible recent fracture. Mild patchy sclerosis seen in the proximal left clavicle of uncertain significance, not seen in 2013. Uncertain if this could be related to degenerative change, bone infarct or healed injury. Sclerotic metastasis is felt less likely. D/ / 08/25/2017 14:42:53 Satya Allen MD / tho Interpreting Provider: Satya Allen MD (10) Obesity hypoventilation syndrome Current Visit: Yes Status: Chronic (11) TONA (obstructive sleep apnea) Current Visit: Yes Status: Chronic (12) Schizophrenia Current Visit: Yes Status: Chronic continue home meds Clozapine and Risperdal Qualifiers: Schizophrenia type: unspecified Qualified Code(s): F20.9 - Schizophrenia, unspecified (13) Tobacco abuse Current Visit: Yes Status: Chronic reported 3 pack per day smoker will continue to encourage tobacco cessation when more alert nicotine replacement therapy as needed (14) DVT prophylaxis Current Visit: Yes Status: Acute Heparin Subjective Principal diagnosis: respiratory failure, flu B Interval history: Patient seen and examined at bedside. No acute events overnight. Patient is mildly sedated and follow some commands. ABG noted to be respiratory alkalosis , appropriate vent changes made. Patient afebrile. Unable to obtain further subjective history. EEG revealed severe encephalopathy without epileptiform activity. CT head revealed some sinusitis. CT chest/abd/pelvis with some scattered patchy airspace diseases which may be related to aspiration, but no acute intra-abdominal or pelvic process identified. Objective PUL Vital signs: Last Vital Signs Temp 97.9 F 08/26/17 04:02 Pulse 71 08/26/17 06:00 Resp 16 08/26/17 06:02 BP 105/64 08/26/17 06:02 Pulse Ox 92 08/26/17 06:02 General appearance: no acute distress, other (Mildly sedated, able to follow some commands) Eyes: nonicteric ENT: other (Endotracheal intubation, OG tube in place) Neck: supple Effort: other (Mechanically ventilated) Auscultation: right: diminished breath sounds, rhonchi Cardiovascular: regular rate and rhythm Gastrointestinal: normoactive bowel sounds, soft, non-tender, non-distended, other (Obese abdomen) Integumentary: normal Extremities: no cyanosis, no edema, no clubbing, pink and warm, no ischemia or petechiae Musculoskeletal: no deformities non-focal exam, motor strength normal and symmetric, unable to assess due to mental status other (unable to assess) Ventilator Settings Ventilator Settings: Ventilator Settings, Last 8 Hours Ventilator Mode A/C Ventilator Mode A/C Ventilator Mode A/C Ventilator Mode A/C Ventilator Mode A/C Ventilator Mode A/C Ventilator Mode A/C Ventilator Mode A/C Ventilator Mode A/C Ventilator Mode A/C Ventilator Mode A/C Ventilator Mode A/C Ventilator Tidal Volume 450 Setting Ventilator Tidal Volume 450 Setting Ventilator Tidal Volume 450 Setting Ventilator Tidal Volume 450 Setting Ventilator Tidal Volume 450 Setting Ventilator Tidal Volume 450 Setting Ventilator Tidal Volume 450 Setting Ventilator Tidal Volume 450 Setting Ventilator Tidal Volume 450 Setting Ventilator Tidal Volume 450 Setting Ventilator Tidal Volume 450 Setting Ventilator Tidal Volume 450 Setting Ventilator Respiratory Rate 16 Setting Ventilator Respiratory Rate 16 Setting Ventilator Respiratory Rate 20 Setting Ventilator Respiratory Rate 16 Setting Ventilator Respiratory Rate 20 Setting Ventilator Respiratory Rate 20 Setting Ventilator Respiratory Rate 20 Setting Ventilator Respiratory Rate 20 Setting Ventilator Respiratory Rate 20 Setting Ventilator Respiratory Rate 20 Setting Ventilator Respiratory Rate 20 Setting Ventilator Respiratory Rate 20 Setting Actual Respiratory Rate 16 Actual Respiratory Rate 16 Actual Respiratory Rate 16 Actual Respiratory Rate 20 Actual Respiratory Rate 20 Actual Respiratory Rate 20 Actual Respiratory Rate 20 Actual Respiratory Rate 20 Actual Respiratory Rate 20 Actual Respiratory Rate 20 Actual Respiratory Rate 20 Positive End Expiratory 10 Pressure Positive End Expiratory 10 Pressure Positive End Expiratory 10 Pressure Positive End Expiratory 10 Pressure Positive End Expiratory 10 Pressure Positive End Expiratory 10 Pressure Positive End Expiratory 10 Pressure Positive End Expiratory 10 Pressure Positive End Expiratory 10 Pressure Positive End Expiratory 10 Pressure Positive End Expiratory 10 Pressure Positive End Expiratory 10 Pressure Peak Inspiratory Airway 37 Pressure Peak Inspiratory Airway 39 Pressure Peak Inspiratory Airway 39 Pressure Peak Inspiratory Airway 38 Pressure Peak Inspiratory Airway 40 Pressure Peak Inspiratory Airway 38 Pressure Peak Inspiratory Airway 36 Pressure Peak Inspiratory Airway 36 Pressure Peak Inspiratory Airway 40 Pressure Results - Laboratory Findings CBC and BMP: 08/26/17 00:56 08/26/17 08:51 ABG ABG pH 7.60 pH Units (7.32-7.45) H* 08/26/17 05:23 ABG pCO2 47 mmHg (35-45) H 08/26/17 05:23 ABG pO2 68 mmHg (85-104) L 08/26/17 05:23 ABG O2 Saturation 96 % (95-98) 08/26/17 05:23 Abnormal lab findings: Abnormal lab results ABG pH 7.60 pH Units (7.32-7.45) H* 08/26/17 05:23 ABG pCO2 47 mmHg (35-45) H 08/26/17 05:23 ABG pO2 68 mmHg (85-104) L 08/26/17 05:23 ABG HCO3 47 mEq/L (21-27) H 08/26/17 05:23 ABG Total CO2 48 mEq/L (20-26) H 08/26/17 05:23 ABG Base Excess 22 mEq/L (-2 to 3) H 08/26/17 05:23 VBG pH 7.65 pH Units (7.32-7.42) H* 08/25/17 20:38 Sodium 135 mEq/L (136-145) L 08/26/17 00:56 Potassium 2.7 mEq/L (3.5-5.1) L 08/26/17 00:56 Chloride 81 mEq/L (98-107) L 08/26/17 00:56 Carbon Dioxide 45 mEq/L (23-29) H* 08/26/17 00:56 Creatinine 0.40 mg/dL (0.60-1.20) L 08/26/17 00:56 BUN/Creatinine Ratio 40 (6-26) H 08/26/17 00:56 Glucose 193 mg/dL (70-105) H 08/26/17 00:56 POC Glucose 140 mg/dL (70-99) H 08/26/17 05:51 Venous Ioniz Calcium 0.99 mmol/L (1.15-1.35) L 08/26/17 03:40 Creatine Kinase 14 Units/L (30-223) L 08/25/17 13:31 B-Natriuretic Peptide 132 pg/mL (Less than 100) H 08/21/17 02:43 Influenza Type B (PCR) Positive (Negative) A 08/25/17 09:50 - Clinical Findings Intake & Output: Intake & Output 08/25/17 08/25/17 08/26/17 15:59 23:59 07:59 Intake Total 991 / 991 740 / 740 Output Total 275 / 275 1250 / 1250 525 / 525 Balance -265 / -265 -259 / -259 215 / 215 Weight 97.6 kg
[2017-08-26 07:59] LABS: ABG Base Excess 21 mEq/L (-2 to 3); ABG HCO3 47 mEq/L (21-27); ABG Oxygen Saturation 92 % (95-98); ABG PCO2 58 mmHg (35-45); ABG PH 7.52 pH Units (7.32-7.45); ABG PO2 61 mmHg (85-104); ABG TCO2 49 mEq/L (20-26); Blood Gas Modality ASSIST CONTROL; Blood Gas PEEP 8 cm H2O; Blood Gas Respiration Rate 16; Blood Gas VT 450 cc
[2017-08-26] MEDS: MetroNIDAZOLE 500 MG/100 ML 500 MG/100 ML BAG IVPB SCH ×2 (08:54→16:18)
[2017-08-26] MEDS: MethylPREDNISolone 40 MG/ML VIAL IVP SCH ×3 (08:59→21:33)
[2017-08-26] MEDS: Furosemide 40 MG/4 ML VIAL IVP SCH (08:59)
[2017-08-26] MEDS: Chlorhexidine Rinse 15 ML MOUTHWASH MM SCH ×2 (08:59→20:08)
[2017-08-26] MEDS ORDERED: cloZAPine 100 MG TABLET PO SCH (09:00)
[2017-08-26] MEDS ORDERED: cloZAPine 100 MG TABLET GTUBE SCH (09:00)
[2017-08-26] MEDS ORDERED: Divalproex (12 HR) 250 MG TABLET PO SCH (09:00)
[2017-08-26] MEDS ORDERED: levoFLOXacin 750 MG TABLET PO SCH (09:00)
[2017-08-26] MEDS ORDERED: Metoprolol XL (24 HR) Succ 25 MG TAB.ER.24H PO SCH (09:00)
[2017-08-26] MEDS ORDERED: Sennosides/Docusate Sodium TABLET PO SCH (09:00)
[2017-08-26] MEDS: Cholecalciferol (D-3) 1,000 UNIT TABLET PO SCH (09:01)
[2017-08-26] MEDS: Sennosides/Docusate Sodium TABLET GTUBE SCH ×2 (09:01→21:34)
[2017-08-26] MEDS: Aspirin Enteric Coated 81 MG Tablet PO SCH (09:02)
[2017-08-26] MEDS: RisperiDAL 3 MG TABLET GTUBE SCH ×2 (09:03→21:34)
[2017-08-26] MEDS: Oseltamivir 6 MG/ML UDC PO SCH ×2 (09:04→21:33)
[2017-08-26 09:07] LABS: VBG Ionized Calcium 1.05 mmol/L (1.15-1.35)
[2017-08-26] MEDS ORDERED: Potassium Chloride Elixir 20 MEQ/15 ML UDC GTUBE ONE (10:55)
[2017-08-26] MEDS: Valproic Acid Oral Soln 250 MG/5 ML UDC GTUBE SCH ×2 (12:18→18:40)
[2017-08-26 17:45] LABS: VBG Ionized Calcium 1.09 mmol/L (1.15-1.35)
[2017-08-26 18:02] LABS: Phosphorous 4.9 mg/dL (2.7-4.5); Potassium 3.2 mEq/L (3.5-5.1)
[2017-08-26] MEDS: Lactulose Oral Soln 20 GM/30 ML UDC PO SCH (18:40)
[2017-08-26] MEDS: cloZAPine 100 MG TABLET GTUBE SCH (21:34)
[2017-08-27] MEDS: MetroNIDAZOLE 500 MG/100 ML 500 MG/100 ML BAG IVPB SCH ×4 (00:07→23:56)
[2017-08-27] MEDS: Valproic Acid Oral Soln 250 MG/5 ML UDC GTUBE SCH ×5 (00:07→23:56)
[2017-08-27] MEDS: Lacri-Lube 3.5 GM TUBE BOTH EYES SCH ×7 (00:08→23:56)
[2017-08-27 02:53] LABS: BUN/Creatinine Ratio 35 (6-26); Blood Urea Nitrogen 13 mg/dL (6-20); Calcium 9.1 mg/dL (8.6-10.3); Carbon Dioxide 38 mEq/L (23-29); Chloride 95 mEq/L (98-107); Glucose 160 mg/dL (70-105); Osmolality,Calculated 290 (280-300); Potassium 3.8 mEq/L (3.5-5.1); Sodium 138 mEq/L (136-145); eGFR For African Americans > 60 (> 60); eGFR For Non-African Americans > 60 (> 60)
[2017-08-27 03:03] LABS: VBG Ionized Calcium 1.12 mmol/L (1.15-1.35)
[2017-08-27 03:15] LABS: Hematocrit 42.4 % (35.3-44.9); Hemoglobin 13.6 g/dL (11.5-15.4); Immature Granulocytes % 0.6 % (0-4); Immature Platelets 3.8 % (1.1-6.1); Lymphocytes # 0.4 K/mcL (0.6-4.6); Lymphocytes % 10.3 %; Mean Corpuscular HGB Conc 32.1 g/dL (31.6-35.5); Mean Corpuscular Hemoglobin 29.6 pg (28.0-33.3); Mean Corpuscular Volume 92.4 fL (83.0-100.0); Mean Platelet Volume 10.1 fL (9.4-12.4); Monocytes # 0.2 K/mcL (0.0-1.3); Monocytes % 6.6 %; Neutrophils # 2.9 K/mcL (1.6-8.9); Platelet Count 206 K/mcL (140-400); Red Blood Count 4.59 M/mcL (3.82-4.97); Red Cell Distribution Width 13.6 % (11.5-14.5); Segmented Neutrophils % 82.5 %
[2017-08-27] MEDS: Ipratropium/Albuterol Neb 3 ML IH SCH ×5 (03:16→22:05)
[2017-08-27] MEDS: Cefepime HCl 1,000 MG in Water for inj. (sterile) 20 ML 10 ML IVPB SCH ×2 (03:43→14:31)
[2017-08-27] MEDS: Potassium Chloride Elixir 20 MEQ/15 ML UDC GTUBE PRN ×2 (03:43→12:00)
[2017-08-27 03:46] LABS: Magnesium 1.8 mg/dL (1.6-2.6)
[2017-08-27 04:55] LABS: ABG Base Excess 13 mEq/L (-2 to 3); ABG HCO3 41 mEq/L (21-27); ABG Oxygen Saturation 94 % (95-98); ABG PCO2 67 mmHg (35-45); ABG PO2 75 mmHg (85-104); ABG TCO2 44 mEq/L (20-26); Blood Gas Modality ASSIST CONTROL; Blood Gas PEEP 8 cm H2O; Blood Gas Respiration Rate 12; Blood Gas VT 450 cc
[2017-08-27] MEDS: *HR* Heparin 5,000 UNIT/ML VIAL SQ SCH ×3 (05:50→21:38)
[2017-08-27] MEDS: FentaNYL (PF) 1,000 MCG in 0.9 % Sodium Chloride 80 ML IVC SCH ×2 (07:00→19:20)
[2017-08-27 07:34] LABS: Magnesium 2.4 mg/dL (1.6-2.6); Potassium 3.8 mEq/L (3.5-5.1)
[2017-08-27] MEDS ORDERED: Bisacodyl 10 MG RECTAL SUPPOSITORY RC PRN (07:53)
[2017-08-27] MEDS: Pantoprazole 40 MG VIAL IVP SCH (08:29)
[2017-08-27] MEDS: Chlorhexidine Rinse 15 ML MOUTHWASH MM SCH ×2 (08:29→21:41)
[2017-08-27] MEDS: Lactulose Oral Soln 20 GM/30 ML UDC PO SCH ×2 (08:29→21:38)
[2017-08-27] MEDS: MethylPREDNISolone 40 MG/ML VIAL IVP SCH ×3 (08:30→21:38)
[2017-08-27] MEDS: cloZAPine 100 MG TABLET PO SCH (08:30)
[2017-08-27] MEDS: Cholecalciferol (D-3) 1,000 UNIT TABLET PO SCH (08:31)
[2017-08-27] MEDS: RisperiDAL 3 MG TABLET GTUBE SCH ×2 (08:31→21:38)
[2017-08-27] MEDS: Aspirin Enteric Coated 81 MG Tablet PO SCH (08:31)
[2017-08-27] MEDS: Sennosides/Docusate Sodium TABLET GTUBE SCH ×2 (08:32→21:38)
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
[2017-08-27] MEDS: Oseltamivir 6 MG/ML UDC PO SCH ×2 (08:59→23:56)
[2017-08-27] MEDS: cloZAPine 100 MG TABLET GTUBE SCH (21:39)
[2017-08-28] MEDS: Ipratropium/Albuterol Neb 3 ML IH SCH ×6 (00:07→21:38)
[2017-08-28 04:06] LABS: Hematocrit 43.5 % (35.3-44.9); Hemoglobin 13.7 g/dL (11.5-15.4); Immature Granulocytes % 0.6 % (0-4); Lymphocytes # 0.5 K/mcL (0.6-4.6); Lymphocytes % 9.1 %; Mean Corpuscular HGB Conc 31.5 g/dL (31.6-35.5); Mean Corpuscular Hemoglobin 29.2 pg (28.0-33.3); Mean Corpuscular Volume 92.8 fL (83.0-100.0); Mean Platelet Volume 9.7 fL (9.4-12.4); Monocytes # 0.4 K/mcL (0.0-1.3); Neutrophils # 4.3 K/mcL (1.6-8.9); Platelet Count 210 K/mcL (140-400); Red Blood Count 4.69 M/mcL (3.82-4.97); Red Cell Distribution Width 13.7 % (11.5-14.5); Segmented Neutrophils % 83.3 %
[2017-08-28] MEDS: Lacri-Lube 3.5 GM TUBE BOTH EYES SCH ×6 (04:18→23:58)
[2017-08-28] MEDS: Cefepime HCl 1,000 MG in Water for inj. (sterile) 20 ML 10 ML IVPB SCH ×2 (04:18→14:33)
[2017-08-28 04:25] LABS: BUN/Creatinine Ratio 62 (6-26); Blood Urea Nitrogen 18 mg/dL (6-20); Calcium 9.2 mg/dL (8.6-10.3); Carbon Dioxide 36 mEq/L (23-29); Chloride 98 mEq/L (98-107); Glucose 139 mg/dL (70-105); Osmolality,Calculated 290 (280-300); Phosphorous 3.1 mg/dL (2.7-4.5); Potassium 4.3 mEq/L (3.5-5.1); Sodium 138 mEq/L (136-145); eGFR For African Americans > 60 (> 60); eGFR For Non-African Americans > 60 (> 60)
[2017-08-28 05:04] LABS: ABG Base Excess 13 mEq/L (-2 to 3); ABG HCO3 42 mEq/L (21-27); ABG Oxygen Saturation 95 % (95-98); ABG PCO2 69 mmHg (35-45); ABG PH 7.39 pH Units (7.32-7.45); ABG PO2 81 mmHg (85-104); ABG TCO2 44 mEq/L (20-26); Blood Gas Modality ASSIST CONTROL; Blood Gas PEEP 8 cm H2O; Blood Gas Respiration Rate 12; Blood Gas VT 400 cc
[2017-08-28] MEDS: *HR* Heparin 5,000 UNIT/ML VIAL SQ SCH ×3 (05:32→21:56)
[2017-08-28] MEDS: Valproic Acid Oral Soln 250 MG/5 ML UDC GTUBE SCH ×4 (05:32→23:50)
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
[2017-08-28] MEDS ORDERED: Dexmedetomidine HCl 400 MCG/100 ML MLS IVC SCH ×2 (08:00→20:15)
[2017-08-28] MEDS: MetroNIDAZOLE 500 MG/100 ML 500 MG/100 ML BAG IVPB SCH (08:37)
[2017-08-28] MEDS: cloZAPine 100 MG TABLET PO SCH (09:04)
[2017-08-28] MEDS: Cholecalciferol (D-3) 1,000 UNIT TABLET PO SCH (09:04)
[2017-08-28] MEDS: Lactulose Oral Soln 20 GM/30 ML UDC PO SCH ×2 (09:04→20:38)
[2017-08-28] MEDS: RisperiDAL 3 MG TABLET GTUBE SCH ×2 (09:04→20:38)
[2017-08-28] MEDS: Aspirin Enteric Coated 81 MG Tablet PO SCH (09:05)
[2017-08-28] MEDS: Pantoprazole 40 MG VIAL IVP SCH (09:05)
[2017-08-28] MEDS: MethylPREDNISolone 40 MG/ML VIAL IVP SCH ×3 (09:05→20:38)
[2017-08-28] MEDS: Chlorhexidine Rinse 15 ML MOUTHWASH MM SCH ×2 (09:06→20:39)
[2017-08-28] MEDS: Oseltamivir 6 MG/ML UDC PO SCH ×2 (09:06→20:41)
[2017-08-28] MEDS: Sennosides/Docusate Sodium TABLET GTUBE SCH ×2 (10:06→20:38)
[2017-08-28] MEDS: cloZAPine 100 MG TABLET GTUBE SCH (20:39)
[2017-08-29] MEDS: Ipratropium/Albuterol Neb 3 ML IH SCH ×7 (00:02→23:40)
[2017-08-29 03:46] LABS: Hematocrit 45.7 % (35.3-44.9); Hemoglobin 14.6 g/dL (11.5-15.4); Immature Granulocytes % 0.6 % (0-4); Lymphocytes # 0.5 K/mcL (0.6-4.6); Lymphocytes % 10.3 %; Mean Corpuscular HGB Conc 31.9 g/dL (31.6-35.5); Mean Corpuscular Hemoglobin 29.7 pg (28.0-33.3); Mean Corpuscular Volume 92.9 fL (83.0-100.0); Monocytes # 0.3 K/mcL (0.0-1.3); Monocytes % 7.3 %; Neutrophils # 3.8 K/mcL (1.6-8.9); Platelet Count 228 K/mcL (140-400); Red Blood Count 4.92 M/mcL (3.82-4.97); Red Cell Distribution Width 13.3 % (11.5-14.5); Segmented Neutrophils % 81.8 %
[2017-08-29 03:59] LABS: BUN/Creatinine Ratio 91 (6-26); Blood Urea Nitrogen 21 mg/dL (6-20); Calcium 9.4 mg/dL (8.6-10.3); Carbon Dioxide 38 mEq/L (23-29); Chloride 96 mEq/L (98-107); Glucose 131 mg/dL (70-105); Magnesium 1.9 mg/dL (1.6-2.6); Osmolality,Calculated 289 (280-300); Phosphorous 3.5 mg/dL (2.7-4.5); Potassium 4.2 mEq/L (3.5-5.1); Sodium 137 mEq/L (136-145); eGFR For African Americans > 60 (> 60); eGFR For Non-African Americans > 60 (> 60)
[2017-08-29] MEDS: Cefepime HCl 1,000 MG in Water for inj. (sterile) 20 ML 10 ML IVPB SCH ×2 (04:24→16:02)
[2017-08-29] MEDS: Lacri-Lube 3.5 GM TUBE BOTH EYES SCH ×2 (04:25→08:21)
[2017-08-29] MEDS: Valproic Acid Oral Soln 250 MG/5 ML UDC GTUBE SCH ×3 (05:28→17:36)
[2017-08-29] MEDS: *HR* Heparin 5,000 UNIT/ML VIAL SQ SCH ×3 (05:28→21:40)
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
[2017-08-29] MEDS: MethylPREDNISolone 40 MG/ML VIAL IVP SCH ×3 (08:32→21:40)
[2017-08-29] MEDS: Lactulose Oral Soln 20 GM/30 ML UDC PO SCH (08:32)
[2017-08-29] MEDS: cloZAPine 100 MG TABLET PO SCH (08:33)
[2017-08-29] MEDS: RisperiDAL 3 MG TABLET GTUBE SCH (08:33)
[2017-08-29] MEDS: Sennosides/Docusate Sodium TABLET GTUBE SCH (08:34)
[2017-08-29] MEDS: Aspirin Enteric Coated 81 MG Tablet PO SCH (08:34)
[2017-08-29] MEDS: Cholecalciferol (D-3) 1,000 UNIT TABLET PO SCH (08:34)
[2017-08-29] MEDS: Chlorhexidine Rinse 15 ML MOUTHWASH MM SCH (08:34)
[2017-08-29] MEDS: Pantoprazole 40 MG VIAL IVP SCH (08:35)
[2017-08-29] MEDS: Oseltamivir 6 MG/ML UDC PO SCH (08:52)
[2017-08-29 09:09] LABS: ABG Base Excess 13 mEq/L (-2 to 3); ABG HCO3 41 mEq/L (21-27); ABG Oxygen Saturation 96 % (95-98); ABG PCO2 68 mmHg (35-45); ABG PH 7.39 pH Units (7.32-7.45); ABG PO2 88 mmHg (85-104); ABG TCO2 44 mEq/L (20-26); Blood Gas VT 500 cc
[2017-08-29] MEDS ORDERED: D5% in Water 1,000 ML IVC PRN (11:29)
[2017-08-29] MEDS ORDERED: Dextrose Gel 15 GM/37.5 ML TUBE PO PRN ×2 (11:29)
[2017-08-29] MEDS ORDERED: *HR* Dextrose 50 % in Water (Syg) 50 ML SYRINGE IVP PRN (11:29)
[2017-08-29] MEDS ORDERED: Bisacodyl 10 MG RECTAL SUPPOSITORY RC PRN (11:29)
[2017-08-29] MEDS ORDERED: Naloxone 0.4 MG/ML INJ IVP PRN (11:29)
[2017-08-29 14:20] LABS: ABG Base Excess 12 mEq/L (-2 to 3); ABG HCO3 40 mEq/L (21-27); ABG Oxygen Saturation 94 % (95-98); ABG PCO2 65 mmHg (35-45); ABG PO2 73 mmHg (85-104); ABG TCO2 42 mEq/L (20-26); Blood Gas VT 500 cc
--- NOTE | 2017-08-29 14:35 | Consult Note ---
Date of Encounter: 08/29/17 Time of Encounter: 14:00 Assessment & Recommendation (1) Adverse effect of other antiepileptic and sedative-hypnotic drugs, initial encounter Current visit: Yes Status: Acute (2) Asterixis Current visit: Yes Status: Acute (3) Schizophrenia Current visit: Yes Status: Chronic Qualifiers: Schizophrenia type: unspecified Qualified Code(s): F20.9 - Schizophrenia, unspecified History of Present Illness Patient: new to practice Requesting Physician: Deandre Daniel MD Reason for consult: possible adverse reaction to psychotropic medication History of present illness: Ms. Fuller is a 57 year old female She has a fair historian. When I went to talk to her she asked for mother was coming to visit she says that she lives in a assisted and was hoping that her mother could come and visit her in the hospital. When asked about the specifics of the assisted she could only say that it was in [place]. It is very likely that the patient is receiving clozapine from [facility] in [facility]. I do not have outside records to compare. Clozapine is an antipsychotic with a risk of agranulocytosis. The patient tells me that she has been on it for years so she is probably now receiving monthly blood draws. Clozapine is under a REM S medication strategy to prevent neutropenia and agranulocytosis. Thus the patient has remained on clozapine relatively stable dose of medicine. She cannot tell me any specifics more about the other accompanying medicines. These are of concern. The patient is on risperidone at 3 mg daily and this may have a inhibitory effect on the medical metabolism clozapine driving up the serum blood level of clozapine. Review of the hospital records shows no serum blood level for clozapine. This becomes important because respiratory failure is possible with clozapine and seizures or possible high blood levels were higher doses of clozapine. The patient also smokes at least 3 packs per day on an outpatient basis. Nicotine reduces the blood level of clozapine The patient is on Depakote and there is not a recent valproic acid level. The last one that was drawn was in June. Generally the valproic acid level is between 50 and 100 for the total level. For cases of possible toxicity a free valproic acid level can be drawn. The range is 5-25 g per mL this is because the total valproic acid is found to plasma proteins On interview the patient was alert and oriented 3 she was aware of her situation and had good short-term memory and remembering 3 items. She was somewhat childlike in her responses and appeared to have a limited fund of knowledge. She did not report hallucinations or delusions but could acknowledge a reason for hospitalization the reason for being on clozapine. The patient reports that she weighs 225 pounds On examination the patient demonstrated neuromuscular instability and did not fully cooperative but appeared to have myoclonic jerks and asterrixis. These can be seen with toxicity of valproic acid and sometimes of the metabolite norclozapine, when it is high. In addition to the respiratory failure and the patient's respiratory compromise is the presence of a grand mal seizure. This is witnessed that is well described. Clozapine has a therapeutic range of 350 ng per mL to 1000 mg per mL. However blood levels above 1000 mg per mL the. Therapeutic benefits decrease and the likelihood of adverse effects including grand mal seizures Increase. The Patient's EEG Was Abnormal and Appeared to Show a Metabolic Encephalopathy and Did Not Show Justyn and Wave Discharges That Would Suggest a Primary Epilepsy Etiology. The Combination of Depakote and Clozapine Is Used Most Commonly for Behavioral Augmentation Rather Than Anticonvulsant Effect This Is Probably the Case in His Cook Situation. Nonetheless Valproic Acid between 50 and 100 in the Total's Plasma Level Can Help to Prevent from Seizures If Clozapine is in the therapeutic Range CC: Deandre Daniel MD Past Med Surg Social Fam HX - Past Medical History Medical history: COPD, hyperlipidemia, hypertension, other - Past Surgical History Surgical History: no surgical history - Social History Smoking Status: Current every day smoker Smokeless Tobacco Status: No Alcohol use: none Drug use: none - Family History Father Family Member Ethnicity: Non- Hx Family Endocrine Disorder: Yes (DM) Mother Family Member Ethnicity: Non- Living Status: Still Living Brother Family Member Ethnicity: Non- Living Status: Still Living Hx Family Endocrine Disorder: Yes (DIABETES MELLITUS.) Medications & Allergies Acetaminophen [Tylenol] 500 mg PO PRN PRN 08/21/17 [History] Aspirin [Lo-Dose Aspirin EC] 81 mg PO DAILY 08/21/17 [History] Atorvastatin Calcium [Lipitor] 20 mg PO DAILY 08/21/17 [History] Benztropine Mesylate 2 mg PO BID 08/21/17 [History] Calcium Carbonate [Antacid Ultra Strength] 1,177 mg PO PRN 08/21/17 [History] Cholecalciferol (Vitamin D3) [Vitamin D3] 1,000 unit PO DAILY 08/21/17 [History] CloZAPine [Fazaclo] 400 mg PO HS 08/21/17 [History] Divalproex (12 HR) [Depakote (12 HR)] 250 mg PO HS 08/21/17 [History] Ergocalciferol (VITAMIN D2) [Vitamin D] 400 unit PO DAILY 08/21/17 [History] Metoprolol Succinate [Toprol Xl] 12.5 mg PO DAILY 08/21/17 [History] Montelukast [Singulair] 10 mg PO HS 08/21/17 [History] Omeprazole [PriLOSEC] 20 mg PO DAILY 08/21/17 [History] Oxybutynin Chloride [Ditropan Xl] 5 mg PO 1-2XD 08/21/17 [History] Potassium Chloride [K-Tab ER] 20 meq PO DAILY 08/21/17 [History] Sennosides/Docusate Sodium [Senna Plus] 1 each PO DAILY 08/21/17 [History] risperiDONE [RisperDAL] 3 mg PO BID 08/21/17 [History] CloZAPine [Fazaclo] 200 mg PO QAM 08/23/17 [History] Divalproex (24 HR) [Depakote ER (24 HR)] 500 mg PO BID 08/23/17 [History] 3 Allergy/AdvReac Type Severity Reaction Status Date / Time Penicillins Allergy Hives Verified 08/21/17 02:23 Review of Systems Neurological: Reports: weakness Psychiatric: Reports: difficulty concentrating Psychiatry Exam - Constitutional Vitals: Temp Pulse Resp BP Pulse Ox 97.7 F 93 18 125/78 94 08/29/17 12:00 08/29/17 14:00 08/29/17 14:00 08/29/17 14:00 08/29/17 14:00 General appearance: unkempt, obese - Musculoskeletal Station: stooped Strength & Tone: mild weakness, other - Psychiatric Patient Orientation: Yes Person, Yes Time, Yes Place, Yes Circumstance Level of alertness: Alert Behavior: calm Psychomotor activity: Abnormal movements Eye Contact: Minimal Contact Language & Vocabulary: limited Thought Process: Intact, [place] Thought Content: Yes Poverty of Content Attention Span Ability: Capable of Focused Attention Patient Reliability: Questionable Historian Fund of knowledge: Yes below average Intelligence Estimate: Below Average Judgment: Limited Insight: Minimal Results - Labs Labs: Laboratory Last Values WBC 4.7 K/mcL (4.3-11.1) 08/29/17 03:19 RBC 4.92 M/mcL (3.82-4.97) 08/29/17 03:19 Hgb 14.6 g/dL (11.5-15.4) 08/29/17 03:19 Hct 45.7 % (35.3-44.9) H 08/29/17 03:19 MCV 92.9 fL (83.0-100.0) 08/29/17 03:19 MCH 29.7 pg (28.0-33.3) 08/29/17 03:19 MCHC 31.9 g/dL (31.6-35.5) 08/29/17 03:19 RDW 13.3 % (11.5-14.5) 08/29/17 03:19 Plt Count 228 K/mcL (140-400) 08/29/17 03:19 MPV 10.0 fL (9.4-12.4) 08/29/17 03:19 Immature Gran % 0.6 % (0-4) 08/29/17 03:19 Seg Neutrophils % 81.8 % 08/29/17 03:19 Lymphocytes % 10.3 % 08/29/17 03:19 Monocytes % 7.3 % 08/29/17 03:19 Eosinophils % 0.0 % 08/29/17 03:19 Basophils % 0.0 % 08/29/17 03:19 Neutrophils # 3.8 K/mcL (1.6-8.9) 08/29/17 03:19 Lymphocytes # 0.5 K/mcL (0.6-4.6) L 08/29/17 03:19 Monocytes # 0.3 K/mcL (0.0-1.3) 08/29/17 03:19 Eosinophils # 0.0 K/mcL (0.0-0.6) 08/29/17 03:19 Basophils # 0.0 K/mcL (0.0-0.2) 08/29/17 03:19 Immature Plt Fraction 3.8 % (1.1-6.1) 08/27/17 02:36 Sample Site L Radial 08/28/17 05:01 ABG pH 7.40 pH Units (7.32-7.45) 08/29/17 14:17 ABG pCO2 65 mmHg (35-45) H 08/29/17 14:17 ABG pO2 73 mmHg (85-104) L 08/29/17 14:17 ABG HCO3 40 mEq/L (21-27) H 08/29/17 14:17 ABG Total CO2 42 mEq/L (20-26) H 08/29/17 14:17 ABG O2 Saturation 94 % (95-98) L 08/29/17 14:17 ABG Base Excess 12 mEq/L (-2 to 3) H 08/29/17 14:17 Jhonatan Test N/A 08/28/17 05:01 VBG pH 7.65 pH Units (7.32-7.42) H* 08/25/17 20:38 Respiration Rate 12 08/28/17 05:01 O2 Delivery Device BiPAP 08/29/17 14:17 Blood Gas Modality ASSIST CONTROL 08/28/17 05:01 Inspired O2 40.0 (1-15=lpm [id number]=%) 08/29/17 14:17 Tidal Volume 500 cc 08/29/17 14:17 PEEP 8 cm H2O 08/28/17 05:01 Pressure Support 29 cm H2O 08/25/17 07:36 Sodium 137 mEq/L (136-145) 08/29/17 03:19 Potassium 4.2 mEq/L (3.5-5.1) 08/29/17 03:19 Chloride 96 mEq/L (98-107) L 08/29/17 03:19 Carbon Dioxide 38 mEq/L (23-29) H 08/29/17 03:19 BUN 21 mg/dL (6-20) H 08/29/17 03:19 Creatinine 0.23 mg/dL (0.60-1.20) L 08/29/17 03:19 Est GFR ( Amer) > 60 (> 60) 08/29/17 03:19 Est GFR (Non-Af Amer) > 60 (> 60) 08/29/17 03:19 BUN/Creatinine Ratio 91 (6-26) H 08/29/17 03:19 Glucose 131 mg/dL (70-105) H 08/29/17 03:19 POC Glucose 145 mg/dL (70-99) H 08/28/17 23:32 Calculated Osmolality 289 (280-300) 08/29/17 03:19 Lactic Acid 1.9 mmol/L (0.5-2.2) 08/25/17 13:31 Calcium 9.4 mg/dL (8.6-10.3) 08/29/17 03:19 Venous Ioniz Calcium 1.12 mmol/L (1.15-1.35) L 08/27/17 02:45 Phosphorus 3.5 mg/dL (2.7-4.5) 08/29/17 03:19 Magnesium 1.9 mg/dL (1.6-2.6) 08/29/17 03:19 Creatine Kinase 14 Units/L (30-223) L 08/25/17 13:31 Troponin I < 0.03 ng/mL (< 0.04) 08/25/17 13:31 B-Natriuretic Peptide 132 pg/mL (Less than 100) H 08/21/17 02:43 Triglycerides 91 mg/dL (< 150) 08/22/17 07:12 Cholesterol 119 mg/dL (< 200) 08/22/17 07:12 LDL Cholesterol, Calc 45 mg/dL (0-99) 08/22/17 07:12 VLDL Cholesterol, Calc 18 mg/dL (< 31) 08/22/17 07:12 HDL Cholesterol 56 mg/dL (40-59) 08/22/17 07:12 Cholesterol/HDL Ratio 2.1 (0-4.9) 08/22/17 07:12 Prolactin 16.95 ng/mL (3.80-23.20) 08/25/17 13:31 Influenza Type A (PCR) Negative (Negative) 08/25/17 09:50 Influenza Type B (PCR) Positive (Negative) A 08/25/17 09:50 Consult Discharge Plan - Plan Instructions: Heart Failure (DC), Chronic Obstructive Pulmonary Disease (DC), Fall Prevention (DC), Cigarette Smoking and Your Health, Lifestyle Coordinator (GEN) Referrals: Jono Ramirez, CHARTERED FINANCIAL ANALYST [Primary Care Provider] -
[2017-08-29] MEDS ORDERED: cloZAPine 100 MG TABLET GTUBE SCH (21:00)
[2017-08-29] MEDS ORDERED: Oseltamivir 6 MG/ML UDC PO SCH (21:00)
[2017-08-29] MEDS ORDERED: RisperiDAL 3 MG TABLET GTUBE SCH (21:00)
[2017-08-29] MEDS: Valproic Acid Oral Soln 250 MG/5 ML UDC PO SCH (22:31)
[2017-08-30] MEDS: Cefepime HCl 1,000 MG in Water for inj. (sterile) 20 ML 10 ML IVPB SCH ×2 (03:41→17:04)
[2017-08-30] MEDS: Valproic Acid Oral Soln 250 MG/5 ML UDC PO SCH ×4 (03:46→17:05)
[2017-08-30] MEDS: Ipratropium/Albuterol Neb 3 ML IH SCH ×6 (03:56→22:53)
[2017-08-30 05:17] LABS: Hematocrit 44.4 % (35.3-44.9); Hemoglobin 14.3 g/dL (11.5-15.4); Immature Granulocytes % 0.5 % (0-4); Lymphocytes # 0.6 K/mcL (0.6-4.6); Lymphocytes % 10.5 %; Mean Corpuscular HGB Conc 32.2 g/dL (31.6-35.5); Mean Corpuscular Hemoglobin 29.7 pg (28.0-33.3); Mean Corpuscular Volume 92.1 fL (83.0-100.0); Monocytes # 0.4 K/mcL (0.0-1.3); Monocytes % 6.8 %; Neutrophils # 4.7 K/mcL (1.6-8.9); Platelet Count 245 K/mcL (140-400); Red Blood Count 4.82 M/mcL (3.82-4.97); Red Cell Distribution Width 13.2 % (11.5-14.5); Segmented Neutrophils % 82.2 %
[2017-08-30] MEDS: *HR* Heparin 5,000 UNIT/ML VIAL SQ SCH ×3 (05:26→22:19)
[2017-08-30 09:54] LABS: BUN/Creatinine Ratio 72 (6-26); Blood Urea Nitrogen 18 mg/dL (6-20); Carbon Dioxide > 45 mEq/L (23-29); Chloride 95 mEq/L (98-107); Glucose 81 mg/dL (70-105); Osmolality,Calculated 289 (280-300); Potassium 3.9 mEq/L (3.5-5.1); Sodium 139 mEq/L (136-145); eGFR For African Americans > 60 (> 60); eGFR For Non-African Americans > 60 (> 60)
[2017-08-30] MEDS: Aspirin Enteric Coated 81 MG Tablet PO SCH (09:57)
[2017-08-30] MEDS: cloZAPine 100 MG TABLET PO SCH ×2 (09:58→22:16)
[2017-08-30] MEDS: MethylPREDNISolone 40 MG/ML VIAL IVP SCH ×2 (09:59→17:05)
[2017-08-30] MEDS: Cholecalciferol (D-3) 1,000 UNIT TABLET PO SCH (09:59)
[2017-08-30] MEDS: RisperiDAL 3 MG TABLET PO SCH ×2 (09:59→22:17)
--- NOTE | 2017-08-30 11:01 | Internal Med Progress Note ---
<Shahram Dela Cruz - Last Filed: 08/30/17 18:28> Date of Encounter: 08/30/17 Time of Encounter: 11:00 - Assessment and plan (1) Observed seizure-like activity Current Visit: Yes Status: Acute Assessment and plan: Seizure episode witnessed during rapid response 08/25. No repeat episode noted since. -- EEG negative for epileptiform findings -- chronically on Valproate at home which has been reinstated She is AOx3 without signs of encephalopathy EEG demonstrates abnormalities consistent with moderate to severe generalized encephalopathy. No evidence of epileptiform activity identified during the study. Psychiatry on board, recommended clozapine and valproate panel, as higher levels can result in myoclonic jerks and elevated ammonia leading to confusion and encephalopathy. Follow-up on panels. Continue with Depakote and Clozapine. Patient lives in rehabilitation center due to multiple falls at home. rehab services aide on board. Plan to discharge tomorrow. (2) Acute and chronic respiratory failure Current Visit: Yes Status: Acute Improved. COPD Exacerbation due to Influenza B & Acute CHF Exacerbation with Pulmonary Edema -- successfully extubated 08/28/17 tolerating BiPAP for adequate period afterwards. Tolerates BiPAP while sleeping and nasal O2 while awake. -- Cont Cefepime -- cont to monitor I/O -- cont duonebs, d/c solumedrol -- BiPAP while sleeping and at night -- advance diet as tolerated Qualifiers: Respiratory failure complication: hypoxia and hypercapnia Qualified Code(s) : J96.21 - Acute and chronic respiratory failure with hypoxia; J96.22 - Acute and chronic respiratory failure with hypercapnia; J96.22 - Acute and chronic respiratory failure with hypercapnia; J96.22 - Acute and chronic respiratory failure with hypercapnia (3) Acute exacerbation of chronic obstructive pulmonary disease (COPD) Current Visit: Yes Status: Acute as above (4) Influenza B Current Visit: Yes Status: Acute cont contact/droplet precautions; tamiflu completed (5) Acute exacerbation of congestive heart failure Current Visit: Yes Status: Acute as above Qualifiers: Heart failure type: unspecified Qualified Code(s): I50.9 - Heart failure, unspecified (6) Aspiration into airway Current Visit: Yes Status: Acute as above Qualifiers: Encounter type: initial encounter Qualified Code(s): T17.908A - Unspecified foreign body in respiratory tract, part unspecified causing other injury, initial encounter (7) Hypokalemia Current Visit: Yes Status: Resolved resolved; cont monitor qAM (8) On psychotropic medication Current Visit: Yes Status: Acute on fairly extensive variety of psychotropic medications which will need close review -- Psych recommends continue with current medications with valproate and clozapine panel (9) DVT prophylaxis Current Visit: Yes Status: Acute subcutaneous heparin - Time Spent With Patient Greater than 35 minutes - Subjective Interval history: 57f with PMHx COPD on 3L NC, MRDD, hyperlipidemia, hypertension, schizophrenia, depression, anxiety, lives at group home, presents for SOB and productive cough. Patient is hard of hearing and poor historian. She does report improvement of SOB and cough. Denies chest pain, abdominal pain, dysuria, diarrhea, constipation. No overnight seizures or acute events. Patient denies having any seizures since her last episode. Denies any loss of consciousness, dizziness. Denies visual or auditory hallucinations. - Constitutional Vitals: Temp Pulse Resp BP Pulse Ox 98.3 F 77 19 146/78 92 08/30/17 07:31 08/30/17 07:31 08/30/17 07:58 08/30/17 07:31 08/30/17 07:58 General appearance: Present: A&O X 3, morbidly obese - Head Head exam: Present: atraumatic - Eye Eye exam: Present: normal appearance - Neck Neck exam general surgery: Present: full ROM - Respiratory Respiratory exam: Present: CTAB, wheezes. Absent: rales, respiratory distress, rhonchi - Cardiovascular Cardiovascular exam: Present: RRR - GI/Abdominal GI/Abdominal exam: Present: hypoactive bowel sounds, soft. Absent: guarding, tenderness, no peritoneal signs - Extremities Exam Extremities exam: Present: full ROM, warm, radial pulses palpable and symmetrical - Neurological Exam Neurological exam: Present: alert, oriented X3, no focal deficits - Psychiatric Psychiatric exam: Present: normal mood - Skin Skin exam: Present: normal color Internal Medicine: Result - Labs CBC & Chem 7: 08/30/17 04:50 08/30/17 08:18 Labs: Short CBC 08/30/17 Range/Units 04:50 WBC 5.7 (4.3-11.1) K/mcL Hgb 14.3 (11.5-15.4) g/dL Hct 44.4 (35.3-44.9) % Plt Count 245 (140-400) K/mcL Neutrophils # 4.7 (1.6-8.9) K/mcL BMP 08/30/17 08:18 Sodium 139 Potassium 3.9 Chloride 95 L Carbon Dioxide > 45 H* BUN 18 Creatinine 0.25 L Glucose 81 Calcium 9.0 - ABG Interpretation ABG results: ABG ABG pH 7.40 pH Units (7.32-7.45) 08/29/17 14:17 ABG pCO2 65 mmHg (35-45) H 08/29/17 14:17 ABG pO2 73 mmHg (85-104) L 08/29/17 14:17 ABG O2 Saturation 94 % (95-98) L 08/29/17 14:17 Consult Discharge Plan - Plan Instructions: Heart Failure (DC), Chronic Obstructive Pulmonary Disease (DC), Fall Prevention (DC), Cigarette Smoking and Your Health, Director Global Market Research (GEN) Referrals: Jono Ramirez, FIELD MACHINIST [Primary Care Provider] - <Cooper Schumacher - Last Filed: 08/30/17 19:44> Date of Encounter: 08/30/17 - Assessment and plan (1) Acute and chronic respiratory failure Current Visit: Yes Status: Acute Qualifiers: Respiratory failure complication: hypoxia and hypercapnia Qualified Code(s) : J96.21 - Acute and chronic respiratory failure with hypoxia; J96.22 - Acute and chronic respiratory failure with hypercapnia; J96.22 - Acute and chronic respiratory failure with hypercapnia; J96.22 - Acute and chronic respiratory failure with hypercapnia (2) Acute exacerbation of chronic obstructive pulmonary disease (COPD) Current Visit: Yes Status: Acute (3) CHF exacerbation Current Visit: Yes Status: Suspected Qualifiers: Heart failure type: diastolic Qualified Code(s): I50.33 - Acute on chronic diastolic (congestive) heart failure (4) HLD (hyperlipidemia) Current Visit: Yes Status: Chronic Qualifiers: Hyperlipidemia type: mixed hyperlipidemia Qualified Code(s): E78.2 - Mixed hyperlipidemia (5) Obesity hypoventilation syndrome Current Visit: Yes Status: Chronic (6) Hyponatremia Current Visit: No Status: Chronic (7) Schizophrenia Current Visit: Yes Status: Chronic Qualifiers: Schizophrenia type: unspecified Qualified Code(s): F20.9 - Schizophrenia, unspecified (8) Tobacco abuse Current Visit: Yes Status: Chronic - Constitutional Vitals: Temp Pulse Resp BP Pulse Ox 98.1 F 96 16 133/79 97 08/30/17 16:34 08/30/17 16:34 08/30/17 16:34 08/30/17 16:34 08/30/17 16:34 Internal Medicine: Result - Labs CBC & Chem 7: 08/30/17 04:50 08/30/17 08:18 Labs: Short CBC 08/30/17 Range/Units 04:50 WBC 5.7 (4.3-11.1) K/mcL Hgb 14.3 (11.5-15.4) g/dL Hct 44.4 (35.3-44.9) % Plt Count 245 (140-400) K/mcL Neutrophils # 4.7 (1.6-8.9) K/mcL BMP 08/30/17 08:18 Sodium 139 Potassium 3.9 Chloride 95 L Carbon Dioxide > 45 H* BUN 18 Creatinine 0.25 L Glucose 81 Calcium 9.0 - ABG Interpretation ABG results: ABG ABG pH 7.40 pH Units (7.32-7.45) 08/29/17 14:17 ABG pCO2 65 mmHg (35-45) H 08/29/17 14:17 ABG pO2 73 mmHg (85-104) L 08/29/17 14:17 ABG O2 Saturation 94 % (95-98) L 08/29/17 14:17 - Attending Attestation I examined this patient and my medical decision-making was reviewed with the Resident Physician on 08/30/17. I agree with the documented findings, disposition and treatment plan as described except to the extent set forth below. Ms Fuller is currently admitted for acute resp failure. She remains moderate to high risk due to potential for worsening clinical status. Ms Fuller is comfortable now. No breathing issues currently. No fever or chills. No CP. Exam alert Comfortable Mucus membrane dry Heart distant Lungs diminished I/P 1. Resp failure 2. Schizophrenia Further diagnoses and plan as above.
[2017-08-31] MEDS: Valproic Acid Oral Soln 250 MG/5 ML UDC PO SCH ×4 (03:28→23:10)
[2017-08-31] MEDS: Cefepime HCl 1,000 MG in Water for inj. (sterile) 20 ML 10 ML IVPB SCH ×3 (03:34→17:17)
[2017-08-31] MEDS: Ipratropium/Albuterol Neb 3 ML IH SCH ×6 (04:36→23:37)
[2017-08-31] MEDS: *HR* Heparin 5,000 UNIT/ML VIAL SQ SCH ×3 (05:50→23:10)
[2017-08-31] MEDS: Aspirin Enteric Coated 81 MG Tablet PO SCH (09:11)
[2017-08-31] MEDS: cloZAPine 100 MG TABLET PO SCH ×2 (09:12→23:09)
[2017-08-31] MEDS: RisperiDAL 3 MG TABLET PO SCH ×2 (09:12→23:07)
[2017-08-31] MEDS: Cholecalciferol (D-3) 1,000 UNIT TABLET PO SCH (09:12)
[2017-08-31 10:50] LABS: Eosinophils % 0.4 %; Hematocrit 42.7 % (35.3-44.9); Hemoglobin 13.9 g/dL (11.5-15.4); Immature Granulocytes % 0.6 % (0-4); Lymphocytes # 1.3 K/mcL (0.6-4.6); Mean Corpuscular HGB Conc 32.6 g/dL (31.6-35.5); Mean Corpuscular Hemoglobin 29.8 pg (28.0-33.3); Mean Corpuscular Volume 91.6 fL (83.0-100.0); Mean Platelet Volume 9.8 fL (9.4-12.4); Monocytes # 0.5 K/mcL (0.0-1.3); Monocytes % 10.7 %; Neutrophils # 3.2 K/mcL (1.6-8.9); Platelet Count 210 K/mcL (140-400); Red Blood Count 4.66 M/mcL (3.82-4.97); Red Cell Distribution Width 13.2 % (11.5-14.5); Segmented Neutrophils % 63.3 %
[2017-08-31 11:20] LABS: BUN/Creatinine Ratio 48 (6-26); Blood Urea Nitrogen 15 mg/dL (6-20); Calcium 9.1 mg/dL (8.6-10.3); Carbon Dioxide 43 mEq/L (23-29); Chloride 91 mEq/L (98-107); Glucose 100 mg/dL (70-105); Osmolality,Calculated 285 (280-300); Potassium 4.1 mEq/L (3.5-5.1); Sodium 137 mEq/L (136-145); eGFR For African Americans > 60 (> 60); eGFR For Non-African Americans > 60 (> 60)
--- NOTE | 2017-08-31 11:56 | Internal Med Progress Note ---
<Shahram Dela Cruz - Last Filed: 08/31/17 17:14> Date of Encounter: 08/31/17 Time of Encounter: 10:30 - Assessment and plan (1) Hepatic encephalopathy Current Visit: Yes Status: Acute Assessment and plan: Patient has worsening weakness this AM Unable to follow verbal commands. CBC, CMP stable. CT Head demonstrates no acute abnormalities on 08/25/17 Repeat ammonia level at 84-> 81 Start Lactulose 10gm BID this PM Continue to monitor ammonia levels and mental status Pending PT/ OT (2) Observed seizure-like activity Current Visit: Yes Status: Acute Assessment and plan: Seizure episode witnessed during rapid response 08/25. No repeat episode noted since. chronically on Valproate at home which has been reinstated EEG demonstrates abnormalities consistent with moderate to severe generalized encephalopathy. No evidence of epileptiform activity identified during the study. Pending clozapine and valproate panel per psychiatry. Continue with Depakote and Clozapine. Patient lives in rehabilitation center due to multiple falls at home. creative services specialist on board. (3) Acute and chronic respiratory failure Current Visit: Yes Status: Acute Improved. COPD Exacerbation due to Influenza B & Acute CHF Exacerbation with Pulmonary Edema successfully extubated 08/28/17 tolerating BiPAP for adequate period afterwards. Tolerates BiPAP while sleeping and nasal O2 while awake. Cont Cefepime day #12/31 cont duonebs, d/c solumedrol BiPAP while sleeping and at night advance diet as tolerated Qualifiers: Respiratory failure complication: hypoxia and hypercapnia Qualified Code(s) : J96.21 - Acute and chronic respiratory failure with hypoxia; J96.22 - Acute and chronic respiratory failure with hypercapnia; J96.22 - Acute and chronic respiratory failure with hypercapnia; J96.22 - Acute and chronic respiratory failure with hypercapnia (4) Acute exacerbation of chronic obstructive pulmonary disease (COPD) Current Visit: Yes Status: Acute as above (5) Influenza B Current Visit: Yes Status: Acute cont contact/droplet precautions; tamiflu completed (6) Acute exacerbation of congestive heart failure Current Visit: Yes Status: Acute as above Qualifiers: Heart failure type: unspecified Qualified Code(s): I50.9 - Heart failure, unspecified (8) On psychotropic medication Current Visit: Yes Status: Acute Psych recommends continue with current medications with valproate and clozapine panel (9) DVT prophylaxis Current Visit: Yes Status: Acute subcutaneous heparin - Time Spent With Patient Greater than 35 minutes - Subjective Interval history: 57f with PMHx COPD on 3L NC, MRDD, hyperlipidemia, hypertension, schizophrenia, depression, anxiety, [facility], presents for SOB and productive cough. Patient is hard of hearing and poor historian. She reports increasing weakness since yesterday. Denies chest pain, abdominal pain, dysuria, diarrhea, constipation. No overnight seizures or acute events. Patient denies having any seizures since her last episode. Denies any loss of consciousness, dizziness. Denies visual or auditory hallucinations. - Constitutional Vitals: Temp Pulse Resp BP Pulse Ox 98 F 77 16 111/64 94 08/31/17 11:30 08/31/17 11:30 08/31/17 11:30 08/31/17 11:30 08/31/17 11:30 General appearance: Present: A&O X 3, morbidly obese - Head Head exam: Present: atraumatic, normocephalic - Eye Eye exam: Present: PERRL, conjuntiva pink, sclera anicteric Pupils: Present: PERRL - Neck Neck exam general surgery: Present: supple, trachea midline. Absent: lymphadenopathy - Respiratory Respiratory exam: Present: CTAB. Absent: accessory muscle use, rales, rhonchi, wheezes - Cardiovascular Cardiovascular exam: Present: RRR, +S1, +S2. Absent: diastolic murmur, gallop, rubs, systolic murmur - GI/Abdominal GI/Abdominal exam: Present: normal bowel sounds, soft, no peritoneal signs. Absent: distended, tenderness - Extremities Exam Extremities exam: Present: warm, radial pulses palpable and symmetrical. Absent : calf tenderness, cyanotic, pedal edema - Neurological Exam Neurological exam: Present: oriented X3. Absent: pronater drift, facial droop, speech deficit Additional comments: Weakness in all 4 extremities. Strength +1/5 in all extremities - Skin Skin exam: Present: dry, intact Internal Medicine: Result - Labs CBC & Chem 7: 08/31/17 10:39 08/31/17 10:39 Labs: Short CBC 08/31/17 Range/Units 10:39 WBC 5.0 (4.3-11.1) K/mcL Hgb 13.9 (11.5-15.4) g/dL Hct 42.7 (35.3-44.9) % Plt Count 210 (140-400) K/mcL Neutrophils # 3.2 (1.6-8.9) K/mcL BMP 08/31/17 10:39 Sodium 137 Potassium 4.1 Chloride 91 L Carbon Dioxide 43 H* BUN 15 Creatinine 0.31 L Glucose 100 Calcium 9.1 - ABG Interpretation ABG results: ABG ABG pH 7.40 pH Units (7.32-7.45) 08/29/17 14:17 ABG pCO2 65 mmHg (35-45) H 08/29/17 14:17 ABG pO2 73 mmHg (85-104) L 08/29/17 14:17 ABG O2 Saturation 94 % (95-98) L 08/29/17 14:17 Consult Discharge Plan - Plan Instructions: Heart Failure (DC), Chronic Obstructive Pulmonary Disease (DC), Fall Prevention (DC), Cigarette Smoking and Your Health, Smutter (GEN) Referrals: Jono Ramirez, ENERGY ADVISOR [Primary Care Provider] - <Cooper Schumacher - Last Filed: 08/31/17 19:00> Date of Encounter: 08/31/17 - Assessment and plan (1) Hepatic encephalopathy Current Visit: Yes Status: Acute (2) Acute and chronic respiratory failure Current Visit: Yes Status: Acute Qualifiers: Respiratory failure complication: hypoxia and hypercapnia Qualified Code(s) : J96.21 - Acute and chronic respiratory failure with hypoxia; J96.22 - Acute and chronic respiratory failure with hypercapnia; J96.22 - Acute and chronic respiratory failure with hypercapnia; J96.22 - Acute and chronic respiratory failure with hypercapnia (3) Acute exacerbation of chronic obstructive pulmonary disease (COPD) Current Visit: Yes Status: Acute (4) CHF exacerbation Current Visit: Yes Status: Suspected Qualifiers: Heart failure type: diastolic Qualified Code(s): I50.33 - Acute on chronic diastolic (congestive) heart failure (5) HLD (hyperlipidemia) Current Visit: Yes Status: Chronic Qualifiers: Hyperlipidemia type: mixed hyperlipidemia Qualified Code(s): E78.2 - Mixed hyperlipidemia (6) Obesity hypoventilation syndrome Current Visit: Yes Status: Chronic (7) Hyponatremia Current Visit: No Status: Chronic (8) Schizophrenia Current Visit: Yes Status: Chronic Qualifiers: Schizophrenia type: unspecified Qualified Code(s): F20.9 - Schizophrenia, unspecified (9) Tobacco abuse Current Visit: Yes Status: Chronic - Constitutional Vitals: Temp Pulse Resp BP Pulse Ox 97.5 F L 89 16 110/76 94 08/31/17 15:35 08/31/17 15:35 08/31/17 16:29 08/31/17 15:35 08/31/17 16:29 Internal Medicine: Result - Labs CBC & Chem 7: 08/31/17 10:39 08/31/17 10:39 Labs: Short CBC 08/31/17 Range/Units 10:39 WBC 5.0 (4.3-11.1) K/mcL Hgb 13.9 (11.5-15.4) g/dL Hct 42.7 (35.3-44.9) % Plt Count 210 (140-400) K/mcL Neutrophils # 3.2 (1.6-8.9) K/mcL BMP 08/31/17 10:39 Sodium 137 Potassium 4.1 Chloride 91 L Carbon Dioxide 43 H* BUN 15 Creatinine 0.31 L Glucose 100 Calcium 9.1 - ABG Interpretation ABG results: ABG ABG pH 7.40 pH Units (7.32-7.45) 08/29/17 14:17 ABG pCO2 65 mmHg (35-45) H 08/29/17 14:17 ABG pO2 73 mmHg (85-104) L 08/29/17 14:17 ABG O2 Saturation 94 % (95-98) L 08/29/17 14:17 - Attending Attestation I examined this patient and my medical decision-making was reviewed with the Resident Physician on 08/31/17. I agree with the documented findings, disposition and treatment plan as described except to the extent set forth below. Ms Fuller is currently admitted for acute resp failure and COPD. She is more confused today. She remains moderate to high risk due to potential for worsening clinical status. Ms Fuller seems more confused. No fever or chills. No CP. No GI issues. Exam alert Comfortable Mucus membranes dry Heart distant No wheeze Abd soft I/P 1. Hepatic encephalopathy 2. COPD Further diagnoses and plan as above.
[2017-08-31 22:42] LABS: Valproate Free 18 ug/mL (7-23); Valproate Total 43 ug/mL (50-125)
[2017-08-31] MEDS: Lactulose Oral Soln 20 GM/30 ML UDC PO SCH (23:07)
[2017-09-01] MEDS: Ipratropium/Albuterol Neb 3 ML IH SCH ×7 (03:27→23:53)
[2017-09-01] MEDS: Valproic Acid Oral Soln 250 MG/5 ML UDC PO SCH (05:20)
[2017-09-01] MEDS: *HR* Heparin 5,000 UNIT/ML VIAL SQ SCH ×3 (05:21→23:29)
[2017-09-01 05:33] LABS: Alanine Aminotransferase 14 Units/L (7-52); Alkaline Phosphatase 33 Units/L (34-104); Aspartate Amino Transferase 10 Units/L (13-39); BUN/Creatinine Ratio 39 (6-26); Bilirubin,Total 0.8 mg/dL (0.3-1.0); Blood Urea Nitrogen 11 mg/dL (6-20); Calcium 8.7 mg/dL (8.6-10.3); Carbon Dioxide 41 mEq/L (23-29); Chloride 93 mEq/L (98-107); Globulin 1.5 g/dL (2.4-3.5); Glucose 92 mg/dL (70-105); Osmolality,Calculated 283 (280-300); Potassium 3.9 mEq/L (3.5-5.1); Sodium 137 mEq/L (136-145); Total Protein 4.5 g/dL (6.4-8.9); eGFR For African Americans > 60 (> 60); eGFR For Non-African Americans > 60 (> 60)
[2017-09-01 08:55] LABS: Valproate % Free 42 % (5-18)
[2017-09-01] MEDS: cloZAPine 100 MG TABLET PO SCH ×2 (09:44→23:55)
[2017-09-01] MEDS: RisperiDAL 3 MG TABLET PO SCH ×2 (09:45→23:56)
[2017-09-01] MEDS: Cholecalciferol (D-3) 1,000 UNIT TABLET PO SCH (09:46)
[2017-09-01] MEDS: Aspirin Enteric Coated 81 MG Tablet PO SCH (09:46)
[2017-09-01] MEDS: Lactulose Oral Soln 20 GM/30 ML UDC PO SCH (09:46)
--- NOTE | 2017-09-01 10:48 | Internal Med Progress Note ---
<Ilya Garrison - Last Filed: 09/01/17 13:43> Date of Encounter: 09/01/17 Time of Encounter: 10:47 - Assessment and plan (1) Schizophrenia Current Visit: Yes Status: Chronic Assessment and plan: psych is on board. - appreciate recommendations from psych - clozapine and valproate levels pending Qualifiers: Schizophrenia type: unspecified Qualified Code(s): F20.9 - Schizophrenia, unspecified (2) Acute exacerbation of chronic obstructive pulmonary disease (COPD) Current Visit: Yes Status: Acute Assessment and plan: continues to improve. Patient is positive for Flu B, most likely CHF exacerbation is contributing. - Cefepime day 01/31 - continue respiratory support as need. Goal O2 is 88-92% - continue bipap at night (3) Obesity hypoventilation syndrome Current Visit: Yes Status: Chronic Assessment and plan: chronic. support with BiPAP at night (4) Hyponatremia Current Visit: Yes Status: Chronic Assessment and plan: resolved (5) Acute and chronic respiratory failure Current Visit: Yes Status: Acute Assessment and plan: see above Qualifiers: Respiratory failure complication: hypoxia and hypercapnia Qualified Code(s) : J96.21 - Acute and chronic respiratory failure with hypoxia; J96.22 - Acute and chronic respiratory failure with hypercapnia; J96.22 - Acute and chronic respiratory failure with hypercapnia; J96.22 - Acute and chronic respiratory failure with hypercapnia (6) CHF exacerbation Current Visit: Yes Status: Suspected Assessment and plan: currently stable - monitor I/O - fluid restriction 1.5L, restrict Na Qualifiers: Heart failure type: diastolic Qualified Code(s): I50.33 - Acute on chronic diastolic (congestive) heart failure (7) Tobacco abuse Current Visit: Yes Status: Chronic Assessment and plan: chronic. educated on cessation (8) HLD (hyperlipidemia) Current Visit: Yes Status: Chronic Assessment and plan: chronic Qualifiers: Hyperlipidemia type: mixed hyperlipidemia Qualified Code(s): E78.2 - Mixed hyperlipidemia (9) Hepatic encephalopathy Current Visit: Yes Status: Acute Assessment and plan: currently A+O x3. Per psych, psych Rx is a contributing factor. - valproate and clonazpine levels pending - D/C following ammonia, does not correlate. continue serial clinical mental status evaluations - continue lactulose - PT/OT pending - morning labs - Time Spent With Patient Total time spent is greater than 50% in coordination of care (as documented) at patient's floor/unit and/or counseling patient: - Subjective Interval history: Ms Fuller is seen and examined. Patient reports feeling fine today, and denies confusion. Patient reports no new complaints or events overnight. all other ROS is negative. - Constitutional Vitals: Temp Pulse Resp BP Pulse Ox 97.7 F 77 18 106/57 95 09/01/17 06:46 09/01/17 06:46 09/01/17 07:43 09/01/17 06:46 09/01/17 07:43 General appearance: Present: A&O X 3, morbidly obese - Head Head exam: Present: atraumatic, normocephalic - ENT ENT exam: Present: mucous membranes dry - Respiratory Respiratory exam: Present: prolonged expiratory phase - Cardiovascular Cardiovascular exam: Present: RRR - Extremities Exam Extremities exam: Present: warm Internal Medicine: Result - Labs CBC & Chem 7: 08/31/17 10:39 09/01/17 04:53 Labs: Short CBC 08/31/17 Range/Units 10:39 WBC 5.0 (4.3-11.1) K/mcL Hgb 13.9 (11.5-15.4) g/dL Hct 42.7 (35.3-44.9) % Plt Count 210 (140-400) K/mcL Neutrophils # 3.2 (1.6-8.9) K/mcL BMP 08/31/17 09/01/17 10:39 04:53 Sodium 137 137 Potassium 4.1 3.9 Chloride 91 L 93 L Carbon Dioxide 43 H* 41 H* BUN 15 11 Creatinine 0.31 L 0.28 L Glucose 100 92 Calcium 9.1 8.7 Liver Function 09/01/17 Range/Units 04:53 Total Bilirubin 0.8 (0.3-1.0) mg/dL AST 10 L (13-39) Units/L ALT 14 (7-52) Units/L Alkaline Phosphatase 33 L (34-104) Units/L Albumin 3.0 L (3.5-5.7) g/dL - ABG Interpretation ABG results: ABG ABG pH 7.40 pH Units (7.32-7.45) 08/29/17 14:17 ABG pCO2 65 mmHg (35-45) H 08/29/17 14:17 ABG pO2 73 mmHg (85-104) L 08/29/17 14:17 ABG O2 Saturation 94 % (95-98) L 08/29/17 14:17 Consult Discharge Plan - Plan Instructions: Heart Failure (DC), Chronic Obstructive Pulmonary Disease (DC), Fall Prevention (DC), Cigarette Smoking and Your Health, Air Brake Rigger (GEN) Referrals: Jono Ramirez, FOOD EQUIPMENT SERVICE TECHNICIAN [Primary Care Provider] - <Cooper Schumacher - Last Filed: 09/01/17 18:22> Date of Encounter: 09/01/17 - Assessment and plan (1) Hepatic encephalopathy Current Visit: Yes Status: Acute (2) Acute and chronic respiratory failure Current Visit: Yes Status: Acute Qualifiers: Respiratory failure complication: hypoxia and hypercapnia Qualified Code(s) : J96.21 - Acute and chronic respiratory failure with hypoxia; J96.22 - Acute and chronic respiratory failure with hypercapnia; J96.22 - Acute and chronic respiratory failure with hypercapnia; J96.22 - Acute and chronic respiratory failure with hypercapnia (3) Acute exacerbation of chronic obstructive pulmonary disease (COPD) Current Visit: Yes Status: Acute (4) HLD (hyperlipidemia) Current Visit: Yes Status: Chronic Qualifiers: Hyperlipidemia type: mixed hyperlipidemia Qualified Code(s): E78.2 - Mixed hyperlipidemia (5) Schizophrenia Current Visit: Yes Status: Chronic Qualifiers: Schizophrenia type: unspecified Qualified Code(s): F20.9 - Schizophrenia, unspecified (6) Obesity hypoventilation syndrome Current Visit: Yes Status: Chronic (7) Hyponatremia Current Visit: Yes Status: Chronic (8) CHF exacerbation Current Visit: Yes Status: Suspected Qualifiers: Heart failure type: diastolic Qualified Code(s): I50.33 - Acute on chronic diastolic (congestive) heart failure (9) Tobacco abuse Current Visit: Yes Status: Chronic - Time Spent With Patient Total time spent is greater than 50% in coordination of care (as documented) at patient's floor/unit and/or counseling patient: - Constitutional Vitals: Temp Pulse Resp BP Pulse Ox 97.7 F 106 18 109/70 96 09/01/17 14:53 09/01/17 14:53 09/01/17 16:02 09/01/17 14:53 09/01/17 16:02 Internal Medicine: Result - Labs CBC & Chem 7: 08/31/17 10:39 09/01/17 04:53 Labs: BMP 09/01/17 04:53 Sodium 137 Potassium 3.9 Chloride 93 L Carbon Dioxide 41 H* BUN 11 Creatinine 0.28 L Glucose 92 Calcium 8.7 Liver Function 09/01/17 Range/Units 04:53 Total Bilirubin 0.8 (0.3-1.0) mg/dL AST 10 L (13-39) Units/L ALT 14 (7-52) Units/L Alkaline Phosphatase 33 L (34-104) Units/L Albumin 3.0 L (3.5-5.7) g/dL - ABG Interpretation ABG results: ABG ABG pH 7.40 pH Units (7.32-7.45) 08/29/17 14:17 ABG pCO2 65 mmHg (35-45) H 08/29/17 14:17 ABG pO2 73 mmHg (85-104) L 08/29/17 14:17 ABG O2 Saturation 94 % (95-98) L 08/29/17 14:17 - Attending Attestation I examined this patient and my medical decision-making was reviewed with the Resident Physician on 09/01/17. I agree with the documented findings, disposition and treatment plan as described except to the extent set forth below. Ms Fuller is currently admitted for acute resp failure. She remains moderate to high risk due to potential for worsening clinical status. Ms Fuller is more alert and oriented today. She still has tremor. No fever or chills. Breathing OK. No CP. Exam alert. Comfortable Mucus membranes dry Heart distant Lungs clear Asterixis present I/P 1. Hepatic encephalopathy 2. Resp failure. Possible d/c tomorrow.
[2017-09-01] MEDS: Cefepime HCl 1,000 MG in Water for inj. (sterile) 20 ML 10 ML IVPB SCH (15:58)
[2017-09-01] MEDS ORDERED: Divalproex Sodium 125 MG CAPSULE PO SCH ×3 (17:00→20:00)
[2017-09-01] MEDS ORDERED: *HR* Promethazine 25 MG/ML VIAL IVP PRN (23:07)
[2017-09-01] MEDS: Ondansetron 4 MG/2 ML VIAL IVP PRN (23:35)
[2017-09-01] MEDS ORDERED: Milk and Molasses Enema 200 ML RC ONE (23:55)
[2017-09-01] MEDS: Divalproex Sodium 125 MG CAPSULE PO SCH (23:56)
[2017-09-02] MEDS: Ipratropium/Albuterol Neb 3 ML IH SCH ×6 (04:08→23:59)
[2017-09-02] MEDS: Cefepime HCl 1,000 MG in Water for inj. (sterile) 20 ML 10 ML IVPB SCH (04:34)
[2017-09-02] MEDS: *HR* Heparin 5,000 UNIT/ML VIAL SQ SCH ×3 (05:38→23:08)
[2017-09-02] MEDS: Divalproex Sodium 125 MG CAPSULE PO SCH ×2 (05:38→16:44)
[2017-09-02 06:04] LABS: Hematocrit 41.2 % (35.3-44.9); Hemoglobin 13.1 g/dL (11.5-15.4); Mean Corpuscular HGB Conc 31.8 g/dL (31.6-35.5); Mean Corpuscular Hemoglobin 29.3 pg (28.0-33.3); Mean Corpuscular Volume 92.2 fL (83.0-100.0); Mean Platelet Volume 10.2 fL (9.4-12.4); Platelet Count 202 K/mcL (140-400); Red Blood Count 4.47 M/mcL (3.82-4.97); Red Cell Distribution Width 13.3 % (11.5-14.5)
[2017-09-02 06:25] LABS: BUN/Creatinine Ratio 32 (6-26); Blood Urea Nitrogen 7 mg/dL (6-20); Carbon Dioxide 43 mEq/L (23-29); Chloride 93 mEq/L (98-107); Glucose 124 mg/dL (70-105); Osmolality,Calculated 283 (280-300); Potassium 4.1 mEq/L (3.5-5.1); Sodium 137 mEq/L (136-145); eGFR For African Americans > 60 (> 60); eGFR For Non-African Americans > 60 (> 60)
[2017-09-02 10:02] LABS: Norclozapine Quant 170 ng/mL
[2017-09-02] MEDS: Cholecalciferol (D-3) 1,000 UNIT TABLET PO SCH (10:28)
[2017-09-02] MEDS: Lactulose Oral Soln 20 GM/30 ML UDC PO SCH ×3 (10:28→23:25)
[2017-09-02] MEDS: cloZAPine 100 MG TABLET PO SCH ×2 (10:29→23:09)
[2017-09-02] MEDS: RisperiDAL 3 MG TABLET PO SCH ×2 (10:30→23:29)
[2017-09-02] MEDS: Aspirin Enteric Coated 81 MG Tablet PO SCH (10:30)
[2017-09-02 12:33] LABS: Clozapine Quant 689 ng/mL
[2017-09-02] MEDS: Ondansetron 4 MG/2 ML VIAL IVP PRN ×2 (14:38→23:04)
--- NOTE | 2017-09-02 15:39 | Internal Med Progress Note ---
<LanieShahram - Last Filed: 09/02/17 19:23> Date of Encounter: 09/02/17 Time of Encounter: 15:30 - Assessment and plan (1) Schizophrenia Current Visit: Yes Status: Chronic Assessment and plan: psych is on board. - appreciate recommendations from psych - clozapine and valproate levels pending Qualifiers: Schizophrenia type: unspecified Qualified Code(s): F20.9 - Schizophrenia, unspecified (2) Acute exacerbation of chronic obstructive pulmonary disease (COPD) Current Visit: Yes Status: Acute Assessment and plan: continues to improve. Patient is positive for Flu B, most likely CHF exacerbation is contributing. - Cefepime day 01/31 - continue respiratory support as need. Goal O2 is 88-92% - continue bipap at night (3) Acute and chronic respiratory failure Current Visit: Yes Status: Acute Assessment and plan: see above Qualifiers: Respiratory failure complication: hypoxia and hypercapnia Qualified Code(s) : J96.21 - Acute and chronic respiratory failure with hypoxia; J96.22 - Acute and chronic respiratory failure with hypercapnia; J96.22 - Acute and chronic respiratory failure with hypercapnia; J96.22 - Acute and chronic respiratory failure with hypercapnia (4) HLD (hyperlipidemia) Current Visit: Yes Status: Chronic Assessment and plan: chronic Qualifiers: Hyperlipidemia type: mixed hyperlipidemia Qualified Code(s): E78.2 - Mixed hyperlipidemia (5) Obesity hypoventilation syndrome Current Visit: Yes Status: Chronic Assessment and plan: chronic. support with BiPAP at night (6) CHF exacerbation Current Visit: Yes Status: Suspected Assessment and plan: currently stable - monitor I/O - fluid restriction 1.5L, restrict Na Qualifiers: Heart failure type: diastolic Qualified Code(s): I50.33 - Acute on chronic diastolic (congestive) heart failure (7) Tobacco abuse Current Visit: Yes Status: Chronic Assessment and plan: chronic. educated on cessation (8) Hepatic encephalopathy Current Visit: Yes Status: Acute Assessment and plan: currently A+O x3. Per psych, psych Rx is a contributing factor. - valproate and clonazpine levels pending - D/C following ammonia, does not correlate. continue serial clinical mental status evaluations - continue lactulose - morning labs - Time Spent With Patient Total time spent is greater than 50% in coordination of care (as documented) at patient's floor/unit and/or counseling patient: Greater than 35 minutes - Subjective Interval history: 57f with PMHx COPD on 3L NC, MRDD, hyperlipidemia, hypertension, schizophrenia, depression, anxiety, lives at [facility], presents for SOB and productive cough. Patient is hard of hearing and poor historian. She reports increasing weakness since yesterday. Denies chest pain, abdominal pain, dysuria, diarrhea, constipation. No overnight seizures or acute events. Patient denies having any seizures since her last episode. Denies any loss of consciousness, dizziness. Denies visual or auditory hallucinations. - Constitutional Vitals: Temp Pulse Resp BP Pulse Ox 98.6 F 104 19 142/76 93 09/02/17 15:29 09/02/17 15:29 09/02/17 15:29 09/02/17 15:29 09/02/17 15:29 General appearance: Present: A&O X 3, morbidly obese - Head Head exam: Present: atraumatic, normocephalic - Eye Eye exam: Present: PERRL, conjuntiva pink, sclera anicteric Pupils: Present: PERRL - Neck Neck exam general surgery: Present: supple, trachea midline. Absent: lymphadenopathy - Respiratory Respiratory exam: Present: CTAB. Absent: accessory muscle use, rales, rhonchi, wheezes - Cardiovascular Cardiovascular exam: Present: RRR, +S1, +S2. Absent: diastolic murmur, gallop, rubs, systolic murmur - GI/Abdominal GI/Abdominal exam: Present: normal bowel sounds, soft, no peritoneal signs. Absent: distended, tenderness - Extremities Exam Extremities exam: Present: warm, radial pulses palpable and symmetrical. Absent : calf tenderness, cyanotic, pedal edema - Neurological Exam Neurological exam: Present: CN II-XII intact, oriented X3, no focal deficits. Absent: pronater drift, facial droop, speech deficit - Skin Skin exam: Present: dry, intact Internal Medicine: Result - Labs CBC & Chem 7: 09/02/17 05:32 09/02/17 05:32 Labs: Short CBC 09/02/17 Range/Units 05:32 WBC 8.1 D (4.3-11.1) K/mcL Hgb 13.1 (11.5-15.4) g/dL Hct 41.2 (35.3-44.9) % Plt Count 202 (140-400) K/mcL BMP 09/02/17 05:32 Sodium 137 Potassium 4.1 Chloride 93 L Carbon Dioxide 43 H* BUN 7 Creatinine 0.22 L Glucose 124 H Calcium 9.0 - ABG Interpretation ABG results: ABG ABG pH 7.40 pH Units (7.32-7.45) 08/29/17 14:17 ABG pCO2 65 mmHg (35-45) H 08/29/17 14:17 ABG pO2 73 mmHg (85-104) L 08/29/17 14:17 ABG O2 Saturation 94 % (95-98) L 08/29/17 14:17 - Impressions Impressions [facility] X-Ray 09/01/17 23:06 IMPRESSION: Moderate to large gas and stool load likely constipation. D/ / Duane Amos MD / Duane Amos MD Interpreting Provider: Duane Amso MD Consult Discharge Plan - Plan Instructions: Heart Failure (DC), Chronic Obstructive Pulmonary Disease (DC), Fall Prevention (DC), Cigarette Smoking and Your Health, Electric Solderer (GEN) Referrals: Jono Ramirez, TUNNEL ELASTIC OPERATOR LOCKSTITCH [Primary Care Provider] - <Cooper Schumacher - Last Filed: 09/02/17 19:48> Date of Encounter: 09/02/17 - Assessment and plan (1) Acute and chronic respiratory failure Current Visit: Yes Status: Acute Qualifiers: Respiratory failure complication: hypoxia and hypercapnia Qualified Code(s) : J96.21 - Acute and chronic respiratory failure with hypoxia; J96.22 - Acute and chronic respiratory failure with hypercapnia; J96.22 - Acute and chronic respiratory failure with hypercapnia; J96.22 - Acute and chronic respiratory failure with hypercapnia (2) Hepatic encephalopathy Current Visit: Yes Status: Acute (3) HLD (hyperlipidemia) Current Visit: Yes Status: Chronic Qualifiers: Hyperlipidemia type: mixed hyperlipidemia Qualified Code(s): E78.2 - Mixed hyperlipidemia (4) Schizophrenia Current Visit: Yes Status: Chronic Qualifiers: Schizophrenia type: unspecified Qualified Code(s): F20.9 - Schizophrenia, unspecified (5) Acute exacerbation of chronic obstructive pulmonary disease (COPD) Current Visit: Yes Status: Resolved (6) Obesity hypoventilation syndrome Current Visit: Yes Status: Chronic (7) CHF exacerbation Current Visit: Yes Status: Suspected Qualifiers: Heart failure type: diastolic Qualified Code(s): I50.33 - Acute on chronic diastolic (congestive) heart failure (8) Tobacco abuse Current Visit: Yes Status: Chronic - Time Spent With Patient Total time spent is greater than 50% in coordination of care (as documented) at patient's floor/unit and/or counseling patient: - Constitutional Vitals: Temp Pulse Resp BP Pulse Ox 99.1 F 103 18 116/74 90 09/02/17 19:33 09/02/17 19:33 09/02/17 19:33 09/02/17 19:33 09/02/17 19:33 Internal Medicine: Result - Labs CBC & Chem 7: 09/02/17 05:32 09/02/17 05:32 Labs: Short CBC 09/02/17 Range/Units 05:32 WBC 8.1 D (4.3-11.1) K/mcL Hgb 13.1 (11.5-15.4) g/dL Hct 41.2 (35.3-44.9) % Plt Count 202 (140-400) K/mcL BMP 09/02/17 05:32 Sodium 137 Potassium 4.1 Chloride 93 L Carbon Dioxide 43 H* BUN 7 Creatinine 0.22 L Glucose 124 H Calcium 9.0 - ABG Interpretation ABG results: ABG ABG pH 7.40 pH Units (7.32-7.45) 08/29/17 14:17 ABG pCO2 65 mmHg (35-45) H 08/29/17 14:17 ABG pO2 73 mmHg (85-104) L 08/29/17 14:17 ABG O2 Saturation 94 % (95-98) L 08/29/17 14:17 - Impressions Impressions KUB X-Ray 09/01/17 23:06 IMPRESSION: Moderate to large gas and stool load likely constipation. D/ / Duane Amos MD / Duane Amos MD Interpreting Provider: Duane Amos MD - Attending Attestation I examined this patient and my medical decision-making was reviewed with the Resident Physician on 09/02/17. I agree with the documented findings, disposition and treatment plan as described except to the extent set forth below. Ms Fuller is currently admitted for respiratory failure and hepatic encephalopathy. She remains moderate to high risk due to potential for worsening clinical status. Ms Fuller feels OK. No fever at this time. No CP or SOB at this time. Exam alert Comfortable Mucus membranes dry Heart reg Decreased breath sounds Abd soft Less asterixis I/P 1. Resp failure 2. Hepatic encephalopathy. Further diagnoses and plan as above.
--- NOTE | 2017-09-02 15:47 | Discharge Summary ---
Date of Encounter: 09/02/17 Time of Encounter: 15:00 - Discharge Diagnosis (1) Hepatic encephalopathy Priority: Primary Status: Acute (2) Observed seizure-like activity Priority: Primary Status: Acute (3) HLD (hyperlipidemia) Priority: Secondary Status: Chronic Qualifiers: Hyperlipidemia type: mixed hyperlipidemia Qualified Code(s): E78.2 - Mixed hyperlipidemia (4) Schizophrenia Priority: Secondary Status: Chronic Qualifiers: Schizophrenia type: unspecified Qualified Code(s): F20.9 - Schizophrenia, unspecified (5) Acute exacerbation of chronic obstructive pulmonary disease (COPD) Priority: Secondary Status: Acute (6) Obesity hypoventilation syndrome Priority: Secondary Status: Chronic (7) Acute and chronic respiratory failure Priority: Secondary Status: Acute Qualifiers: Respiratory failure complication: hypoxia and hypercapnia Qualified Code(s) : J96.21 - Acute and chronic respiratory failure with hypoxia; J96.22 - Acute and chronic respiratory failure with hypercapnia; J96.22 - Acute and chronic respiratory failure with hypercapnia; J96.22 - Acute and chronic respiratory failure with hypercapnia (8) CHF exacerbation Priority: Secondary Status: Suspected Qualifiers: Heart failure type: diastolic Qualified Code(s): I50.33 - Acute on chronic diastolic (congestive) heart failure (9) Tobacco abuse Priority: Secondary Status: Chronic Hospital course: Ms. Fuller is a 57 year old female - Time Spent with Patient Total time spent providing and/or coordinating discharge services: - Discharge Medications Home Medications: Acetaminophen [Tylenol] 500 mg PO PRN PRN 08/21/17 [History] Aspirin [Lo-Dose Aspirin EC] 81 mg PO DAILY 08/21/17 [History] Atorvastatin Calcium [Lipitor] 20 mg PO DAILY 08/21/17 [History] Benztropine Mesylate 2 mg PO BID 08/21/17 [History] Calcium Carbonate [Antacid Ultra Strength] 1,177 mg PO PRN 08/21/17 [History] Cholecalciferol (Vitamin D3) [Vitamin D3] 1,000 unit PO DAILY 08/21/17 [History] CloZAPine [Fazaclo] 400 mg PO HS 08/21/17 [History] Divalproex (12 HR) [Depakote (12 HR)] 250 mg PO HS 08/21/17 [History] Ergocalciferol (VITAMIN D2) [Vitamin D] 400 unit PO DAILY 08/21/17 [History] Metoprolol Succinate [Toprol Xl] 12.5 mg PO DAILY 08/21/17 [History] Montelukast [Singulair] 10 mg PO HS 08/21/17 [History] Omeprazole [PriLOSEC] 20 mg PO DAILY 08/21/17 [History] Oxybutynin Chloride [Ditropan Xl] 5 mg PO 1-2XD 08/21/17 [History] Potassium Chloride [K-Tab ER] 20 meq PO DAILY 08/21/17 [History] Sennosides/Docusate Sodium [Senna Plus] 1 each PO DAILY 08/21/17 [History] risperiDONE [RisperDAL] 3 mg PO BID 08/21/17 [History] CloZAPine [Fazaclo] 200 mg PO QAM 08/23/17 [History] Divalproex (24 HR) [Depakote ER (24 HR)] 500 mg PO BID 08/23/17 [History] Allergies/Adverse Reactions: 3 Allergy/AdvReac Type Severity Reaction Status Date / Time Penicillins Allergy Hives Verified 08/21/17 02:23 Date of admission: 08/21/17 14:05 Primary care physician: Jono Ramirez CNP Consults: 08/23/17 12:08 Consult to Greige Goods Examiner [CONS] Routine Reason for SW Consult: Patient from [facility] 08/25/17 08:25 Consult to Pulmonology [CONS] Routine Consulting Provider: [facility]m [facility] [place] Reason for Consult: Hypercapnic respiratory failure. Pt remains somnolent this morning despite of being on BiPAP. May need ventilation support. Case had been discussed with Dr. Estevez. Call Completed: Yes 08/25/17 12:53 Consult to Interpret Exam [CONS] Routine Consulting Provider: Nicko Henry Consult to Interpret Exam: Interpret EEG 08/29/17 10:57 Consult to Psychiatry [CONS] Routine Consulting Provider: Psychiatry [place] Reason for Consult: Pt on variety of psych medications and needs Rx review; also, labile respiratory status has been adversely affected by anxiety. Pt in process of transferring to med/tele *most likely 2NE* Time Notified: 11:02 Call Completed: Yes 08/31/17 11:46 PT [Consult to Physical Therapy] [CONS] Routine Comment: Evaluate, develop and implement POC Reason for Consult: Muscle weakness Does patient have active BEDREST order?: No Is patient medically & hemodynamically stable?: Yes Patient assessed for mobility or mobilized this visit?: No 08/31/17 11:47 OT [Consult to Occupational Therapy] [CONS] Routine Comment: Evaluate, develop and implement POC Reason for Consult: Weakness Does patient have active BEDREST order?: No Is patient medically & hemodynamically stable?: Yes Patient assessed for mobility or mobilized this visit?: No Discharging clinician: Shahram Dela Cruz Anticipated date of discharge: 09/02/17 - Constitutional Vitals: Temp Pulse Resp BP Pulse Ox 98.6 F 104 19 142/76 93 09/02/17 15:29 09/02/17 15:29 09/02/17 15:29 09/02/17 15:29 09/02/17 15:29 General appearance: Present: A&O X 3, morbidly obese - Head Head exam: Present: atraumatic, normocephalic - Eye Eye exam: Present: PERRL, conjuntiva pink, sclera anicteric Pupils: Present: PERRL - Neck Neck exam general surgery: Present: supple, trachea midline. Absent: lymphadenopathy - Respiratory Respiratory exam: Present: CTAB. Absent: accessory muscle use, rales, rhonchi, wheezes - Cardiovascular Cardiovascular exam: Present: RRR, +S1, +S2. Absent: diastolic murmur, gallop, rubs, systolic murmur - GI/Abdominal GI/Abdominal exam: Present: normal bowel sounds, soft, no peritoneal signs. Absent: distended, tenderness - Extremities Exam Extremities exam: Present: warm, radial pulses palpable and symmetrical. Absent : calf tenderness, cyanotic, pedal edema - Neurological Exam Neurological exam: Present: CN II-XII intact, oriented X3, no focal deficits. Absent: pronater drift, facial droop, speech deficit - Skin Skin exam: Present: dry, intact - Patient Status Condition: Fair - Discharge Instructions Instructions: Heart Failure (DC), Chronic Obstructive Pulmonary Disease (DC), Fall Prevention (DC), Cigarette Smoking and Your Health, Scruff Worker (GEN) Follow Up With: Jono Ramirez, DISTRIBUTION TECH [Primary Care Provider] -
[2017-09-02 22:17] LABS: ABG Base Excess 14 mEq/L (-2 to 3); ABG HCO3 43 mEq/L (21-27); ABG Oxygen Saturation 87 % (95-98); ABG PCO2 69 mmHg (35-45); ABG PO2 56 mmHg (85-104); ABG TCO2 45 mEq/L (20-26); Blood Gas Respiration Rate 12; Blood Gas VT 500 cc
[2017-09-03] MEDS: Divalproex Sodium 125 MG CAPSULE PO SCH ×2 (00:10→06:12)
--- NOTE | 2017-09-03 00:23 | Event Note ---
Date of Encounter: 09/02/17 Time of Encounter: 21:59 Alerted by patient's nurse the patient's lethargy and drop and SPO2 when not on BiPAP. Patient has had high ammonia during admission. ABG drawn which showed pH 7.40, PCO2 69, PO2 56, HCO3 43, total CO2 45, O2 saturation 87, and base excess 14. Patient changed to O2 via mask and maintaining SpO2 in 90s. Will add BiPAP if SpO2 drops. Valproic acid level 33.0 w/ percent free valproic acid 42. Latest ammonia 63 on 09/01 w/new level ordered for 04:00. Decision to hold Depakote at midnight and 06:00 until a.m. team can evaluate and d/t contraindication for hepatotoxicity. Unsure etiology for use of Depakote in this pt. as there is no hx of seizures. Hepatic panel ordered 04:00. Dose of ordered lactulose given. Pt. reported nausea and Zofran and Phenergan ordered PRN for N/V. Pt. resting comfortably and will continue to be monitored closely.
[2017-09-03] MEDS: Ipratropium/Albuterol Neb 3 ML IH SCH ×6 (03:46→23:50)
[2017-09-03 05:21] LABS: Basophils % 0.1 %; Eosinophils # 0.2 K/mcL (0.0-0.6); Eosinophils % 2.4 %; Hematocrit 41.4 % (35.3-44.9); Hemoglobin 13.2 g/dL (11.5-15.4); Immature Granulocytes % 0.3 % (0-4); Lymphocytes # 0.9 K/mcL (0.6-4.6); Lymphocytes % 13.7 %; Mean Corpuscular HGB Conc 31.9 g/dL (31.6-35.5); Mean Corpuscular Hemoglobin 28.9 pg (28.0-33.3); Mean Corpuscular Volume 90.6 fL (83.0-100.0); Mean Platelet Volume 9.8 fL (9.4-12.4); Monocytes # 0.6 K/mcL (0.0-1.3); Monocytes % 9.1 %; Platelet Count 200 K/mcL (140-400); Red Blood Count 4.57 M/mcL (3.82-4.97); Red Cell Distribution Width 13.9 % (11.5-14.5); Segmented Neutrophils % 74.4 %
[2017-09-03 05:35] LABS: Albumin 3.3 g/dL (3.5-5.7); Albumin/Globulin Ratio 1.8 (1.1-2.2); BUN/Creatinine Ratio 29 (6-26); Bilirubin,Direct 0.4 mg/dL (0.0-0.2); Bilirubin,Indirect 0.9 mg/dL (0.0-1.2); Bilirubin,Total 1.3 mg/dL (0.3-1.0); Blood Urea Nitrogen 7 mg/dL (6-20); Calcium 8.9 mg/dL (8.6-10.3); Carbon Dioxide 37 mEq/L (23-29); Chloride 94 mEq/L (98-107); Globulin 1.8 g/dL (2.4-3.5); Glucose 112 mg/dL (70-105); Osmolality,Calculated 281 (280-300); Sodium 136 mEq/L (136-145); Total Protein 5.1 g/dL (6.4-8.9); eGFR For African Americans > 60 (> 60); eGFR For Non-African Americans > 60 (> 60)
[2017-09-03] MEDS: Ondansetron 4 MG/2 ML VIAL IVP PRN ×3 (06:02→23:46)
[2017-09-03] MEDS: RisperiDAL 3 MG TABLET PO SCH ×2 (07:53→22:08)
[2017-09-03] MEDS: Cholecalciferol (D-3) 1,000 UNIT TABLET PO SCH (07:53)
[2017-09-03] MEDS: Aspirin Enteric Coated 81 MG Tablet PO SCH (07:53)
[2017-09-03] MEDS: cloZAPine 100 MG TABLET PO SCH ×2 (07:53→22:09)
[2017-09-03] MEDS: *HR* Heparin 5,000 UNIT/ML VIAL SQ SCH ×3 (07:54→22:10)
[2017-09-03] MEDS: Lactulose Oral Soln 20 GM/30 ML UDC PO SCH (07:54)
--- NOTE | 2017-09-03 09:33 | Internal Med Progress Note ---
<Shahram Dela Cruz - Last Filed: 09/03/17 18:19> Date of Encounter: 09/03/17 Time of Encounter: 09:00 - Assessment and plan (1) Hepatic encephalopathy Current Visit: Yes Status: Acute Assessment and plan: currently A+O x3. Discontinue lactulose due to patient's vomiting. Switched to Rifaximin. - morning labs (2) HLD (hyperlipidemia) Current Visit: Yes Status: Chronic Assessment and plan: chronic Qualifiers: Hyperlipidemia type: mixed hyperlipidemia Qualified Code(s): E78.2 - Mixed hyperlipidemia (3) Schizophrenia Current Visit: Yes Status: Chronic Assessment and plan: Continue with current psych medications Qualifiers: Schizophrenia type: unspecified Qualified Code(s): F20.9 - Schizophrenia, unspecified (4) Acute exacerbation of chronic obstructive pulmonary disease (COPD) Current Visit: Yes Status: Resolved Assessment and plan: continues to improve. Patient is positive for Flu B, most likely CHF exacerbation is contributing. - continue respiratory support as need. Goal O2 is 88-92% - continue bipap at night (5) Obesity hypoventilation syndrome Current Visit: Yes Status: Chronic Assessment and plan: chronic. support with BiPAP at night (6) Acute and chronic respiratory failure Current Visit: Yes Status: Acute Assessment and plan: see above Qualifiers: Respiratory failure complication: hypoxia and hypercapnia Qualified Code(s) : J96.21 - Acute and chronic respiratory failure with hypoxia; J96.22 - Acute and chronic respiratory failure with hypercapnia; J96.22 - Acute and chronic respiratory failure with hypercapnia; J96.22 - Acute and chronic respiratory failure with hypercapnia (7) CHF exacerbation Current Visit: Yes Status: Suspected Assessment and plan: currently stable - monitor I/O - will consider IV fluids if patient continues to vomit Qualifiers: Heart failure type: diastolic Qualified Code(s): I50.33 - Acute on chronic diastolic (congestive) heart failure (8) Tobacco abuse Current Visit: Yes Status: Chronic Assessment and plan: chronic. educated on cessation (9) Nausea and vomiting Current Visit: Yes Status: Acute Assessment and plan: Patient has continuous vomiting throughout the day. Continue with Zofran and Reglan. IV fluids as needed. Plan for discharge tomorrow if patient improves. Pending placement Qualifiers: Qualified Code(s): R11.2 - Nausea with vomiting, unspecified - Time Spent With Patient Total time spent is greater than 50% in coordination of care (as documented) at patient's floor/unit and/or counseling patient: - Subjective Interval history: 57f with PMHx COPD on 3L NC, MRDD, hyperlipidemia, hypertension, schizophrenia, depression, anxiety, [facility], presents for SOB and productive cough. Patient is hard of hearing and poor historian. Patient became altered last night and she desatted while not on BiPAP. Depakote was held due to continuously elevated ammonia levels and possible hepatotoxicity. She vomited while I was in her room this a.m. Per nurse's note, patient vomited all of her medications this a.m. She denies any fever, chills. She does have nausea and has continuous vomiting. Patient is asking for pop. She states that she has had a bowel movement last night and asking for assistance for bowel movement right now. She also has diffuse abdominal pain. - Constitutional Vitals: Temp Pulse Resp BP Pulse Ox 97.8 F 98 16 130/60 91 09/03/17 07:38 09/03/17 07:38 09/03/17 07:38 09/03/17 07:38 09/03/17 07:38 General appearance: Present: A&O X 3, morbidly obese Exam: Patient vomiting at bedside - Head Head exam: Present: atraumatic, normocephalic - Eye Eye exam: Present: PERRL, conjuntiva pink, sclera anicteric Pupils: Present: PERRL - Neck Neck exam general surgery: Present: supple, trachea midline. Absent: lymphadenopathy - Respiratory Respiratory exam: Present: wheezes. Absent: accessory muscle use, rales, rhonchi - Cardiovascular Cardiovascular exam: Present: +S1, +S2, tachycardia. Absent: diastolic murmur, gallop, rubs, systolic murmur - GI/Abdominal GI/Abdominal exam: Present: hypoactive bowel sounds, soft, tenderness (Diffuse) , no peritoneal signs. Absent: distended - Extremities Exam Extremities exam: Present: warm, radial pulses palpable and symmetrical. Absent : calf tenderness, cyanotic, pedal edema - Neurological Exam Neurological exam: Present: altered, oriented X3, no focal deficits. Absent: pronater drift, facial droop, speech deficit - Skin Skin exam: Present: dry, intact Internal Medicine: Result - Labs CBC & Chem 7: 09/03/17 05:02 09/03/17 05:02 Labs: Short CBC 09/03/17 Range/Units 05:02 WBC 6.7 (4.3-11.1) K/mcL Hgb 13.2 (11.5-15.4) g/dL Hct 41.4 (35.3-44.9) % Plt Count 200 (140-400) K/mcL Neutrophils # 5.0 (1.6-8.9) K/mcL BMP 09/03/17 05:02 Sodium 136 Potassium 4.0 Chloride 94 L Carbon Dioxide 37 H BUN 7 Creatinine 0.24 L Glucose 112 H Calcium 8.9 Liver Function 09/03/17 Range/Units 05:02 Total Bilirubin 1.3 H (0.3-1.0) mg/dL Direct Bilirubin 0.4 H (0.0-0.2) mg/dL AST 12 L (13-39) Units/L ALT 17 (7-52) Units/L Alkaline Phosphatase 37 (34-104) Units/L Albumin 3.3 L (3.5-5.7) g/dL - ABG Interpretation ABG results: ABG ABG pH 7.40 pH Units (7.32-7.45) 09/02/17 22:13 ABG pCO2 69 mmHg (35-45) H 09/02/17 22:13 ABG pO2 56 mmHg (85-104) L 09/02/17 22:13 ABG O2 Saturation 87 % (95-98) L 09/02/17 22:13 Consult Discharge Plan - Plan Instructions: Heart Failure (DC), Chronic Obstructive Pulmonary Disease (DC), Fall Prevention (DC), Cigarette Smoking and Your Health, Molder Punch (GEN) Referrals: Jono Ramirez, FILTER PULP WASHER [Primary Care Provider] - <Cooper Schumacher - Last Filed: 09/03/17 19:52> Date of Encounter: 09/03/17 - Assessment and plan (1) Nausea and vomiting Current Visit: Yes Status: Acute Qualifiers: Vomiting type: cyclical vomiting Vomiting Intractability: non-intractable Qualified Code(s): G43.A0 - Cyclical vomiting, not intractable (2) Acute and chronic respiratory failure Current Visit: Yes Status: Acute Qualifiers: Respiratory failure complication: hypoxia and hypercapnia Qualified Code(s) : J96.21 - Acute and chronic respiratory failure with hypoxia; J96.22 - Acute and chronic respiratory failure with hypercapnia; J96.22 - Acute and chronic respiratory failure with hypercapnia; J96.22 - Acute and chronic respiratory failure with hypercapnia (3) HLD (hyperlipidemia) Current Visit: Yes Status: Chronic Qualifiers: Hyperlipidemia type: mixed hyperlipidemia Qualified Code(s): E78.2 - Mixed hyperlipidemia (4) Schizophrenia Current Visit: Yes Status: Chronic Qualifiers: Schizophrenia type: unspecified Qualified Code(s): F20.9 - Schizophrenia, unspecified (5) Acute exacerbation of chronic obstructive pulmonary disease (COPD) Current Visit: Yes Status: Resolved (6) Obesity hypoventilation syndrome Current Visit: Yes Status: Chronic (7) CHF exacerbation Current Visit: Yes Status: Suspected Qualifiers: Heart failure type: diastolic Qualified Code(s): I50.33 - Acute on chronic diastolic (congestive) heart failure (8) Tobacco abuse Current Visit: Yes Status: Chronic (9) Hepatic encephalopathy Current Visit: Yes Status: Acute - Time Spent With Patient Total time spent is greater than 50% in coordination of care (as documented) at patient's floor/unit and/or counseling patient: - Constitutional Vitals: Temp Pulse Resp BP Pulse Ox 98.6 F 120 19 128/83 95 09/03/17 19:01 09/03/17 19:01 09/03/17 19:01 09/03/17 19:01 09/03/17 19:01 Internal Medicine: Result - Labs CBC & Chem 7: 09/03/17 05:02 09/03/17 05:02 Labs: Short CBC 09/03/17 Range/Units 05:02 WBC 6.7 (4.3-11.1) K/mcL Hgb 13.2 (11.5-15.4) g/dL Hct 41.4 (35.3-44.9) % Plt Count 200 (140-400) K/mcL Neutrophils # 5.0 (1.6-8.9) K/mcL BMP 09/03/17 05:02 Sodium 136 Potassium 4.0 Chloride 94 L Carbon Dioxide 37 H BUN 7 Creatinine 0.24 L Glucose 112 H Calcium 8.9 Liver Function 09/03/17 Range/Units 05:02 Total Bilirubin 1.3 H (0.3-1.0) mg/dL Direct Bilirubin 0.4 H (0.0-0.2) mg/dL AST 12 L (13-39) Units/L ALT 17 (7-52) Units/L Alkaline Phosphatase 37 (34-104) Units/L Albumin 3.3 L (3.5-5.7) g/dL - ABG Interpretation ABG results: ABG ABG pH 7.40 pH Units (7.32-7.45) 09/02/17 22:13 ABG pCO2 69 mmHg (35-45) H 09/02/17 22:13 ABG pO2 56 mmHg (85-104) L 09/02/17 22:13 ABG O2 Saturation 87 % (95-98) L 09/02/17 22:13 - Attending Attestation I examined this patient and my medical decision-making was reviewed with the Resident Physician on 09/03/17. I agree with the documented findings, disposition and treatment plan as described except to the extent set forth below. Ms Fuller is currently admitted for resp failure. She has developed some nausea and vomiting. She remains moderate to high risk due to potential for worsening clinical status. Ms Fuller is nauseous. She has vomited today. No fever. No worsening dyspnea. No abd pain. Having BMs Exam alert Comfortable now Mucus membranes dry Heart tachy Lungs diminished Abd soft I/P 1. N/V 2. Hepatic enceph Further diagnoses and plan as above.
[2017-09-03] MEDS ORDERED: 0.9 % Sodium Chloride 500 ML IVC ONE (19:29)
[2017-09-03] MEDS ORDERED: Divalproex (24 HR) 250 MG TABLET PO SCH (21:00)
[2017-09-03] MEDS ORDERED: Divalproex (24 HR) 500 MG TABLET PO SCH (21:00)
[2017-09-04] MEDS: Ipratropium/Albuterol Neb 3 ML IH SCH ×5 (04:18→20:13)
[2017-09-04 05:23] LABS: BUN/Creatinine Ratio 36 (6-26); Blood Urea Nitrogen 8 mg/dL (6-20); Calcium 9.2 mg/dL (8.6-10.3); Carbon Dioxide 39 mEq/L (23-29); Chloride 92 mEq/L (98-107); Glucose 145 mg/dL (70-105); Osmolality,Calculated 287 (280-300); Potassium 2.9 mEq/L (3.5-5.1); Sodium 138 mEq/L (136-145); eGFR For African Americans > 60 (> 60); eGFR For Non-African Americans > 60 (> 60)
[2017-09-04] MEDS: *HR* Heparin 5,000 UNIT/ML VIAL SQ SCH ×3 (06:22→22:00)
[2017-09-04] MEDS: cloZAPine 100 MG TABLET PO SCH ×2 (09:19→21:59)
[2017-09-04] MEDS: Aspirin Enteric Coated 81 MG Tablet PO SCH (09:19)
[2017-09-04] MEDS: Cholecalciferol (D-3) 1,000 UNIT TABLET PO SCH (09:21)
[2017-09-04] MEDS: RisperiDAL 3 MG TABLET PO SCH ×2 (09:21→21:58)
[2017-09-04] MEDS ORDERED: Potassium Chloride 40 MEQ, Lidocaine 1% 2 ML in D5% in Water 500 ML IVPB ONE (09:36)
[2017-09-04] MEDS ORDERED: Isovue-370 500 ML INFUS..BTL IV ONE (10:31)
[2017-09-04] MEDS: Ondansetron 4 MG/2 ML VIAL IVP PRN ×2 (10:59→22:07)
[2017-09-04] MEDS: Metoclopramide 10 MG/2 ML VIAL IVP SCH ×2 (18:41→23:46)
--- NOTE | 2017-09-04 18:53 | Internal Med Progress Note ---
Date of Encounter: 09/04/17 Time of Encounter: 15:00 - Assessment and plan (1) Nausea and vomiting Current Visit: Yes Status: Acute Assessment and plan: Vomiting persists. CT shows gastric distention and possible early SBO. Pt will not tolerate NG at this time. Will make NPO. Schedule Reglan. KUB in AM. Continue meds. Qualifiers: Vomiting type: cyclical vomiting Vomiting Intractability: non-intractable Qualified Code(s): G43.A0 - Cyclical vomiting, not intractable (2) Hypokalemia Current Visit: Yes Status: Acute Assessment and plan: Replace today. (3) Acute and chronic respiratory failure Current Visit: Yes Status: Acute Assessment and plan: She has not been wearing her bipap due to vomiting. She is high risk for intubation if she becomes more somnolent and is unable to wear bipap. Now that NPO should try bipap. Qualifiers: Respiratory failure complication: hypoxia and hypercapnia Qualified Code(s) : J96.21 - Acute and chronic respiratory failure with hypoxia; J96.22 - Acute and chronic respiratory failure with hypercapnia; J96.22 - Acute and chronic respiratory failure with hypercapnia; J96.22 - Acute and chronic respiratory failure with hypercapnia (4) HLD (hyperlipidemia) Current Visit: Yes Status: Chronic Assessment and plan: chronic Qualifiers: Hyperlipidemia type: mixed hyperlipidemia Qualified Code(s): E78.2 - Mixed hyperlipidemia (5) Schizophrenia Current Visit: Yes Status: Chronic Assessment and plan: Continue with current psych medications Qualifiers: Schizophrenia type: unspecified Qualified Code(s): F20.9 - Schizophrenia, unspecified (6) Acute exacerbation of chronic obstructive pulmonary disease (COPD) Current Visit: Yes Status: Resolved Assessment and plan: continues to improve. Patient is positive for Flu B, most likely CHF exacerbation is contributing. - continue respiratory support as need. Goal O2 is 88-92% - continue bipap at night (7) Obesity hypoventilation syndrome Current Visit: Yes Status: Chronic Assessment and plan: chronic. support with BiPAP at night (8) CHF exacerbation Current Visit: Yes Status: Suspected Assessment and plan: currently stable - Qualifiers: Heart failure type: diastolic Qualified Code(s): I50.33 - Acute on chronic diastolic (congestive) heart failure (9) Tobacco abuse Current Visit: Yes Status: Chronic Assessment and plan: chronic. educated on cessation (10) Hepatic encephalopathy Current Visit: Yes Status: Acute Assessment and plan: currently A+O x3. Discontinue lactulose due to patient's vomiting. Switched to Rifaximin. - Time Spent With Patient Total time spent is greater than 50% in coordination of care (as documented) at patient's floor/unit and/or counseling patient: - Subjective Interval history: Ms Fuller is currently admitted for resp failure. She has developed significant vomiting. She remains moderate to high risk due to potential for worsening clinical status. Ms Fuller continues to vomit. No pain. Wants to go back to SNF. No fever. Some cough. Did not wear bipap last evening due to vomiting. - Constitutional Vitals: Temp Pulse Resp BP Pulse Ox 99.2 F 107 16 132/80 91 09/04/17 16:03 09/04/17 16:03 09/04/17 16:03 09/04/17 16:03 09/04/17 16:03 General appearance: Present: A&O X 3 - Head Head exam: Present: normocephalic - Eye Eye exam: Present: conjuntiva pink - ENT ENT exam: Present: mucous membranes dry - Respiratory Respiratory exam: Present: rhonchi, wheezes - Cardiovascular Cardiovascular exam: Present: RRR. Absent: tachycardia - GI/Abdominal GI/Abdominal exam: Present: distended, soft. Absent: tenderness - Extremities Exam Extremities exam: Present: warm. Absent: tenderness - Neurological Exam Neurological exam: Present: alert, no focal deficits - Skin Skin exam: Present: dry, warm Internal Medicine: Result - Labs CBC & Chem 7: 09/03/17 05:02 09/04/17 04:30 Labs: BMP 09/04/17 04:30 Sodium 138 Potassium 2.9 L D Chloride 92 L Carbon Dioxide 39 H BUN 8 Creatinine 0.22 L Glucose 145 H Calcium 9.2 - ABG Interpretation ABG results: ABG ABG pH 7.40 pH Units (7.32-7.45) 09/02/17 22:13 ABG pCO2 69 mmHg (35-45) H 09/02/17 22:13 ABG pO2 56 mmHg (85-104) L 09/02/17 22:13 ABG O2 Saturation 87 % (95-98) L 09/02/17 22:13 - Impressions Impressions Abdomen/Pelvis CT 09/04/17 10:31 IMPRESSION: Gastric distention along with fluid-filled prominence of duodenum and proximal jejunum. No abrupt transition point. Gradual transition to more normal caliber small bowel in mid abdomen. Findings are nonspecific, but could reflect early or partial proximal small bowel obstruction. Small bilateral pleural effusions, new from prior exam 08/25/2017. These both appear to have slightly thickened and enhancing rims, and the possibility for empyema cannot be excluded. Circumferential low-attenuation wall thickening to visualized distal esophagus, new from prior exam, concerning for esophagitis. Likely mild diffuse fatty infiltration of the liver. D/ / 09/04/2017 15:00:39 Jonny Bautista MD / [email or web address] Interpreting Provider: Jonny Bautista MD Consult Discharge Plan - Plan Instructions: Heart Failure (DC), Chronic Obstructive Pulmonary Disease (DC), Fall Prevention (DC), Cigarette Smoking and Your Health, Phd Internship (GEN) Referrals: Jono Ramirez, CHIEF LEARNING OFFICER [Primary Care Provider] -
[2017-09-05] MEDS: Ipratropium/Albuterol Neb 3 ML IH SCH ×7 (00:22→23:54)
[2017-09-05 01:34] LABS: Hematocrit 37.6 % (35.3-44.9); Hemoglobin 12.5 g/dL (11.5-15.4); Mean Corpuscular HGB Conc 33.2 g/dL (31.6-35.5); Mean Corpuscular Hemoglobin 29.4 pg (28.0-33.3); Mean Corpuscular Volume 88.5 fL (83.0-100.0); Mean Platelet Volume 10.6 fL (9.4-12.4); Platelet Count 217 K/mcL (140-400); Red Blood Count 4.25 M/mcL (3.82-4.97); Red Cell Distribution Width 13.8 % (11.5-14.5)
[2017-09-05 01:54] LABS: Alanine Aminotransferase 13 Units/L (7-52); Albumin 3.1 g/dL (3.5-5.7); Albumin/Globulin Ratio 1.6 (1.1-2.2); Alkaline Phosphatase 41 Units/L (34-104); Aspartate Amino Transferase 9 Units/L (13-39); BUN/Creatinine Ratio 29 (6-26); Bilirubin,Total 1.1 mg/dL (0.3-1.0); Blood Urea Nitrogen 6 mg/dL (6-20); Calcium 8.8 mg/dL (8.6-10.3); Carbon Dioxide 34 mEq/L (23-29); Chloride 92 mEq/L (98-107); Glucose 111 mg/dL (70-105); Magnesium 1.1 mg/dL (1.6-2.6); Osmolality,Calculated 272 (280-300); Potassium 3.5 mEq/L (3.5-5.1); Sodium 132 mEq/L (136-145); Total Protein 5.1 g/dL (6.4-8.9); eGFR For African Americans > 60 (> 60); eGFR For Non-African Americans > 60 (> 60)
[2017-09-05] MEDS: *HR* Heparin 5,000 UNIT/ML VIAL SQ SCH ×3 (05:51→21:45)
[2017-09-05] MEDS: Metoclopramide 10 MG/2 ML VIAL IVP SCH ×3 (05:51→18:38)
--- NOTE | 2017-09-05 09:44 | Internal Med Progress Note ---
Date of Encounter: 09/05/17 Time of Encounter: 09:15 - Assessment and plan (1) Nausea and vomiting Current Visit: Yes Status: Acute Assessment and plan: Has been NPO overnight due to concern for possible early SBO. She is doing better at this time. KUB does not show obstruction. Will start clear liquid diet and see how she does. Advance as much as we can. Start Senna Plus. Qualifiers: Vomiting type: cyclical vomiting Vomiting Intractability: non-intractable Qualified Code(s): G43.A0 - Cyclical vomiting, not intractable (2) Partial small bowel obstruction Current Visit: Yes Status: Suspected Assessment and plan: Seems to be doing better today. Most likely Clozapine is causing issues. Try clear liquids today. (3) Hypomagnesemia Current Visit: Yes Status: Acute Assessment and plan: replace today (4) Hypokalemia Current Visit: Yes Status: Acute Assessment and plan: Improved but just at a normal level. Will give IV 20meq more today. (5) Acute and chronic respiratory failure Current Visit: Yes Status: Acute Assessment and plan: Did not wear bipap again last night. CO2 levels on chemistry not elevated and she is awake and interactive today. Has pleural effusions on CT abdomen - concern for rim enhancing. Check CT chest today. Continue oxygen maintaining sat around 88%. If now vomiting today should be on bipap tonight. Qualifiers: Respiratory failure complication: hypoxia and hypercapnia Qualified Code(s) : J96.21 - Acute and chronic respiratory failure with hypoxia; J96.22 - Acute and chronic respiratory failure with hypercapnia; J96.22 - Acute and chronic respiratory failure with hypercapnia; J96.22 - Acute and chronic respiratory failure with hypercapnia (6) Hepatic encephalopathy Current Visit: Yes Status: Acute Assessment and plan: Currently on Rifaximin and tolerating it. Mentally alert and interactive. (7) Schizophrenia Current Visit: Yes Status: Chronic Assessment and plan: Continue with current psych medications Qualifiers: Schizophrenia type: unspecified Qualified Code(s): F20.9 - Schizophrenia, unspecified (8) Acute exacerbation of chronic obstructive pulmonary disease (COPD) Current Visit: Yes Status: Resolved Assessment and plan: Continue supportive care at this time. (9) Obesity hypoventilation syndrome Current Visit: Yes Status: Chronic Assessment and plan: chronic. support with BiPAP at night (10) CHF exacerbation Current Visit: Yes Status: Suspected Assessment and plan: currently stable - No issues at this time. Qualifiers: Heart failure type: diastolic Qualified Code(s): I50.33 - Acute on chronic diastolic (congestive) heart failure (11) Tobacco abuse Current Visit: Yes Status: Chronic Assessment and plan: chronic. educated on cessation (12) HLD (hyperlipidemia) Current Visit: Yes Status: Chronic Assessment and plan: chronic Qualifiers: Hyperlipidemia type: mixed hyperlipidemia Qualified Code(s): E78.2 - Mixed hyperlipidemia - Time Spent With Patient Total time spent is greater than 50% in coordination of care (as documented) at patient's floor/unit and/or counseling patient: - Subjective Interval history: Ms Fuller is currently admitted for resp failure. She has developed significant vomiting. She remains moderate to high risk due to potential for worsening clinical status. Ms Fuller had CT yesterday which showed stomach distention and concern for early SBO. She has been NPO overnight. Chest is very congested this AM. No fever. Pleural effusions noted on CT of abdomen - ? rim enhancing. She wants to know when she is leaving. Denies abd pain or nausea at this time. Tolerating her pills. Wants grape juice. CXR did not show pleural effusion and KUB does not show obstruction but constipation. - Constitutional Vitals: Temp Pulse Resp BP Pulse Ox 98.1 F 105 18 144/81 90 09/05/17 07:00 09/05/17 07:00 09/05/17 08:12 09/05/17 07:00 09/05/17 08:12 General appearance: Present: A&O X 3 - Head Head exam: Present: normocephalic - Eye Eye exam: Present: conjuntiva pink - ENT ENT exam: Present: mucous membranes moist - Respiratory Respiratory exam: Present: rhonchi. Absent: rales, wheezes - Cardiovascular Cardiovascular exam: Present: RRR, tachycardia - GI/Abdominal GI/Abdominal exam: Present: soft. Absent: distended, tenderness - Extremities Exam Extremities exam: Present: warm. Absent: tenderness - Neurological Exam Neurological exam: Present: alert, no focal deficits - Skin Skin exam: Present: dry, warm Internal Medicine: Result - Labs CBC & Chem 7: 09/05/17 01:12 09/05/17 01:12 Labs: Short CBC 09/05/17 Range/Units 01:12 WBC 10.6 D (4.3-11.1) K/mcL Hgb 12.5 (11.5-15.4) g/dL Hct 37.6 (35.3-44.9) % Plt Count 217 (140-400) K/mcL BMP 09/05/17 01:12 Sodium 132 L Potassium 3.5 Chloride 92 L Carbon Dioxide 34 H BUN 6 Creatinine 0.21 L Glucose 111 H Calcium 8.8 Liver Function 09/05/17 Range/Units 01:12 Total Bilirubin 1.1 H (0.3-1.0) mg/dL AST 9 L (13-39) Units/L ALT 13 (7-52) Units/L Alkaline Phosphatase 41 (34-104) Units/L Albumin 3.1 L (3.5-5.7) g/dL - ABG Interpretation ABG results: ABG ABG pH 7.40 pH Units (7.32-7.45) 09/02/17 22:13 ABG pCO2 69 mmHg (35-45) H 09/02/17 22:13 ABG pO2 56 mmHg (85-104) L 09/02/17 22:13 ABG O2 Saturation 87 % (95-98) L 09/02/17 22:13 - Impressions Impressions Abdomen/Pelvis CT 09/04/17 10:31 IMPRESSION: Gastric distention along with fluid-filled prominence of duodenum and proximal jejunum. No abrupt transition point. Gradual transition to more normal caliber small bowel in mid abdomen. Findings are nonspecific, but could reflect early or partial proximal small bowel obstruction. Small bilateral pleural effusions, new from prior exam 08/25/2017. These both appear to have slightly thickened and enhancing rims, and the possibility for empyema cannot be excluded. Circumferential low-attenuation wall thickening to visualized distal esophagus, new from prior exam, concerning for esophagitis. Likely mild diffuse fatty infiltration of the liver. D/ / 09/04/2017 15:00:39 Jonny Bautista MD / [email or web address] Interpreting Provider: Jonny Bautista MD Chest X-Ray 09/04/17 21:00 IMPRESSION: No acute disease. D/ / Alejandro Martin MD / Alejandro Martin MD Interpreting Provider: Alejandro Martin MD X-Ray 09/05/17 06:00 IMPRESSION: Gas and stool throughout the colon may represent constipation. No evidence of bowel obstruction. D/ / Gonzalez Rae MD / Gonzalez Rae MD Interpreting Provider: Gonzalez Rae MD Consult Discharge Plan - Plan Instructions: Heart Failure (DC), Chronic Obstructive Pulmonary Disease (DC), Fall Prevention (DC), Cigarette Smoking and Your Health, Communications Department Chair (GEN) Referrals: Jono Ramirez, ELECTRICAL SYSTEM SPECIALIST [Primary Care Provider] -
[2017-09-05] MEDS ORDERED: Potassium Chloride 20 MEQ, Lidocaine 1% 2 ML in D5% in Water 250 ML IVPB ONE (10:09)
[2017-09-05] MEDS: cloZAPine 100 MG TABLET PO SCH ×2 (10:32→21:46)
[2017-09-05] MEDS: Aspirin Enteric Coated 81 MG Tablet PO SCH (10:32)
[2017-09-05] MEDS: Sennosides/Docusate Sodium TABLET PO SCH ×2 (10:34→21:46)
[2017-09-05] MEDS: RisperiDAL 3 MG TABLET PO SCH ×2 (10:34→21:45)
[2017-09-05] MEDS: Ondansetron 4 MG/2 ML VIAL IVP PRN ×2 (10:43→21:45)
[2017-09-05] MEDS: Pantoprazole 40 MG VIAL IVP SCH (22:28)
[2017-09-06] MEDS: Metoclopramide 10 MG/2 ML VIAL IVP SCH ×5 (00:13→18:31)
[2017-09-06] MEDS: Ipratropium/Albuterol Neb 3 ML IH SCH ×5 (04:03→19:39)
[2017-09-06] MEDS: Ondansetron 4 MG/2 ML VIAL IVP PRN ×3 (04:07→20:31)
[2017-09-06 04:59] LABS: BUN/Creatinine Ratio 19 (6-26); Blood Urea Nitrogen 5 mg/dL (6-20); Calcium 9.1 mg/dL (8.6-10.3); Carbon Dioxide 35 mEq/L (23-29); Chloride 96 mEq/L (98-107); Glucose 105 mg/dL (70-105); Magnesium 1.4 mg/dL (1.6-2.6); Osmolality,Calculated 278 (280-300); Potassium 3.5 mEq/L (3.5-5.1); Sodium 135 mEq/L (136-145); eGFR For African Americans > 60 (> 60); eGFR For Non-African Americans > 60 (> 60)
[2017-09-06] MEDS: *HR* Heparin 5,000 UNIT/ML VIAL SQ SCH ×4 (05:49→20:51)
[2017-09-06] MEDS ORDERED: Potassium Chloride 20 MEQ, Lidocaine 1% 2 ML in D5% in Water 250 ML IVPB ONE (09:06)
[2017-09-06] MEDS: Aspirin Enteric Coated 81 MG Tablet PO SCH (10:02)
[2017-09-06] MEDS: RisperiDAL 3 MG TABLET PO SCH ×2 (10:02→20:30)
[2017-09-06] MEDS: cloZAPine 100 MG TABLET PO SCH ×2 (10:02→20:28)
[2017-09-06] MEDS: Sennosides/Docusate Sodium TABLET PO SCH ×2 (10:03→20:28)
[2017-09-06] MEDS: Pantoprazole 40 MG VIAL IVP SCH (10:03)
--- NOTE | 2017-09-06 19:27 | Internal Med Progress Note ---
Date of Encounter: 09/06/17 Time of Encounter: 09:00 - Assessment and plan (1) Nausea and vomiting Current Visit: Yes Status: Acute Assessment and plan: Persists today. Vomited with full liquids. Small bowel follow through ordered - now has had 2 BMs Not read yet. Will restart full liquids - has contrast in stomach but appears to go through. Qualifiers: Vomiting type: cyclical vomiting Vomiting Intractability: non-intractable Qualified Code(s): G43.A0 - Cyclical vomiting, not intractable (2) Partial small bowel obstruction Current Visit: Yes Status: Suspected Assessment and plan: See above (3) Hypomagnesemia Current Visit: Yes Status: Acute Assessment and plan: replace today (4) Hypokalemia Current Visit: Yes Status: Acute Assessment and plan: Improved but just at a normal level. Will give IV 20meq more today. (5) Acute and chronic respiratory failure Current Visit: Yes Status: Acute Assessment and plan: Seems to be doing OK despite not wearing bipap. Monitoring closely. She is alert and oriented. Qualifiers: Respiratory failure complication: hypoxia and hypercapnia Qualified Code(s) : J96.21 - Acute and chronic respiratory failure with hypoxia; J96.22 - Acute and chronic respiratory failure with hypercapnia; J96.22 - Acute and chronic respiratory failure with hypercapnia; J96.22 - Acute and chronic respiratory failure with hypercapnia (6) Hepatic encephalopathy Current Visit: Yes Status: Acute Assessment and plan: Currently on Rifaximin and tolerating it. Mentally alert and interactive. Won' t take Lactulose consistently (7) Schizophrenia Current Visit: Yes Status: Chronic Assessment and plan: Continue with current psych medications Qualifiers: Schizophrenia type: unspecified Qualified Code(s): F20.9 - Schizophrenia, unspecified (8) Acute exacerbation of chronic obstructive pulmonary disease (COPD) Current Visit: Yes Status: Resolved Assessment and plan: Continue supportive care at this time. (9) Obesity hypoventilation syndrome Current Visit: Yes Status: Chronic Assessment and plan: chronic. support with BiPAP at night (10) CHF exacerbation Current Visit: Yes Status: Suspected Assessment and plan: currently stable - No issues at this time. Qualifiers: Heart failure type: diastolic Qualified Code(s): I50.33 - Acute on chronic diastolic (congestive) heart failure (11) Tobacco abuse Current Visit: Yes Status: Chronic Assessment and plan: chronic. educated on cessation (12) HLD (hyperlipidemia) Current Visit: Yes Status: Chronic Assessment and plan: chronic Qualifiers: Hyperlipidemia type: mixed hyperlipidemia Qualified Code(s): E78.2 - Mixed hyperlipidemia - Time Spent With Patient Total time spent is greater than 50% in coordination of care (as documented) at patient's floor/unit and/or counseling patient: - Subjective Interval history: Ms Fuller is currently admitted for resp failure. She has developed significant vomiting. She remains moderate to high risk due to potential for worsening clinical status. Ms Fuller tolerated clear liquids but had more vomiting today (after dark soda). Denies abd pain. Wants to go back to [facility]. No fever at this time. Not wearing bipap as she needs to do. - Constitutional Vitals: Temp Pulse Resp BP Pulse Ox 98.5 F 93 17 124/78 91 09/06/17 18:54 09/06/17 18:54 09/06/17 18:54 09/06/17 18:54 09/06/17 18:54 General appearance: Present: A&O X 3 - Head Head exam: Present: normocephalic - Eye Eye exam: Present: conjuntiva pink - ENT ENT exam: Present: mucous membranes dry - Respiratory Respiratory exam: Present: rhonchi. Absent: rales, wheezes - Cardiovascular Cardiovascular exam: Present: RRR. Absent: tachycardia - GI/Abdominal GI/Abdominal exam: Present: distended, soft. Absent: tenderness - Extremities Exam Extremities exam: Present: warm. Absent: tenderness - Neurological Exam Neurological exam: Present: alert, oriented X3 - Skin Skin exam: Present: dry, warm Internal Medicine: Result - Labs CBC & Chem 7: 09/05/17 01:12 09/06/17 04:02 Labs: BMP 09/06/17 04:02 Sodium 135 L Potassium 3.5 Chloride 96 L Carbon Dioxide 35 H BUN 5 L Creatinine 0.27 L Glucose 105 Calcium 9.1 - ABG Interpretation ABG results: ABG ABG pH 7.40 pH Units (7.32-7.45) 09/02/17 22:13 ABG pCO2 69 mmHg (35-45) H 09/02/17 22:13 ABG pO2 56 mmHg (85-104) L 09/02/17 22:13 ABG O2 Saturation 87 % (95-98) L 09/02/17 22:13 Consult Discharge Plan - Plan Instructions: Heart Failure (DC), Chronic Obstructive Pulmonary Disease (DC), Fall Prevention (DC), Cigarette Smoking and Your Health, Director Data Analytics (GEN) Referrals: Jono Ramirez, INTERIOR DESIGN TEACHER [Primary Care Provider] -
[2017-09-07] MEDS: Ipratropium/Albuterol Neb 3 ML IH SCH ×7 (00:30→23:17)
[2017-09-07] MEDS: Metoclopramide 10 MG/2 ML VIAL IVP SCH ×3 (01:16→11:26)
[2017-09-07 04:24] LABS: Hematocrit 36.3 % (35.3-44.9); Hemoglobin 12.2 g/dL (11.5-15.4); Mean Corpuscular HGB Conc 33.6 g/dL (31.6-35.5); Mean Corpuscular Hemoglobin 29.3 pg (28.0-33.3); Mean Corpuscular Volume 87.3 fL (83.0-100.0); Mean Platelet Volume 10.2 fL (9.4-12.4); Platelet Count 214 K/mcL (140-400); Red Blood Count 4.16 M/mcL (3.82-4.97); Red Cell Distribution Width 13.6 % (11.5-14.5)
[2017-09-07 04:42] LABS: Alanine Aminotransferase 12 Units/L (7-52); Albumin 3.3 g/dL (3.5-5.7); Albumin/Globulin Ratio 1.7 (1.1-2.2); Alkaline Phosphatase 47 Units/L (34-104); Aspartate Amino Transferase 8 Units/L (13-39); BUN/Creatinine Ratio 17 (6-26); Bilirubin,Total 0.9 mg/dL (0.3-1.0); Blood Urea Nitrogen 5 mg/dL (6-20); Calcium 8.8 mg/dL (8.6-10.3); Carbon Dioxide 34 mEq/L (23-29); Chloride 96 mEq/L (98-107); Glucose 102 mg/dL (70-105); Magnesium 1.6 mg/dL (1.6-2.6); Osmolality,Calculated 281 (280-300); Sodium 137 mEq/L (136-145); Total Protein 5.3 g/dL (6.4-8.9); eGFR For African Americans > 60 (> 60); eGFR For Non-African Americans > 60 (> 60)
[2017-09-07] MEDS: *HR* Heparin 5,000 UNIT/ML VIAL SQ SCH ×3 (06:26→23:00)
[2017-09-07] MEDS: Aspirin Enteric Coated 81 MG Tablet PO SCH (09:53)
[2017-09-07] MEDS: Sennosides/Docusate Sodium TABLET PO SCH ×2 (09:54→23:00)
[2017-09-07] MEDS: cloZAPine 100 MG TABLET PO SCH ×2 (09:54→23:00)
[2017-09-07] MEDS: RisperiDAL 3 MG TABLET PO SCH ×2 (09:54→23:00)
[2017-09-07] MEDS: Pantoprazole 40 MG VIAL IVP SCH (09:55)
[2017-09-07] MEDS ORDERED: D5 IVPB ONE (10:14)
[2017-09-07] MEDS ORDERED: POTASSIUM CHLORIDE IVPB ONE (10:14)
[2017-09-07] MEDS ORDERED: LIDOCAINE 1% IVPB ONE (10:14)
[2017-09-07] MEDS ORDERED: WATER IVPB ONE (10:14)
[2017-09-07] MEDS ORDERED: Potassium Chloride 40 MEQ, Lidocaine 1% 2 ML in D5% in Water 500 ML IVPB ONE (11:01)
--- NOTE | 2017-09-07 14:31 | Discharge Summary ---
<Shahram Dela Cruz - Last Filed: 09/07/17 17:50> Date of Encounter: 09/07/17 Time of Encounter: 14:00 - Discharge Diagnosis (1) Acute exacerbation of chronic obstructive pulmonary disease (COPD) Priority: Primary Status: Resolved (2) Obesity hypoventilation syndrome Priority: Secondary Status: Chronic (3) Acute and chronic respiratory failure Priority: Secondary Status: Acute Qualifiers: Respiratory failure complication: hypoxia and hypercapnia Qualified Code(s) : J96.21 - Acute and chronic respiratory failure with hypoxia; J96.22 - Acute and chronic respiratory failure with hypercapnia; J96.22 - Acute and chronic respiratory failure with hypercapnia; J96.22 - Acute and chronic respiratory failure with hypercapnia (4) CHF exacerbation Priority: Secondary Status: Suspected Qualifiers: Heart failure type: diastolic Qualified Code(s): I50.33 - Acute on chronic diastolic (congestive) heart failure (5) Tobacco abuse Priority: Secondary Status: Chronic (6) Hypokalemia Priority: Secondary Status: Acute (7) Hepatic encephalopathy Priority: Secondary Status: Acute (8) Nausea and vomiting Priority: Secondary Status: Acute Qualifiers: Vomiting type: cyclical vomiting Vomiting Intractability: non-intractable Qualified Code(s): G43.A0 - Cyclical vomiting, not intractable (9) Partial small bowel obstruction Priority: Secondary Status: Suspected (10) Hypomagnesemia Priority: Secondary Status: Acute (11) HLD (hyperlipidemia) Priority: Secondary Status: Chronic Qualifiers: Hyperlipidemia type: mixed hyperlipidemia Qualified Code(s): E78.2 - Mixed hyperlipidemia (12) Schizophrenia Priority: Secondary Status: Chronic Qualifiers: Schizophrenia type: unspecified Qualified Code(s): F20.9 - Schizophrenia, unspecified Hospital course: Ms. Fuller is a 57 year old female with past medical history of COPD on 3 L of nasal cannula, MRDD, hyperlipidemia, hypertension, schizophrenia, depression, anxiety, lives in a long-term and presented to ED for trends of breath and productive cough. Patient is a poor historian. Patient was admitted for COPD exacerbation. On 08/25/17, patient experienced change in baseline mentation. ABG values demonstrated acute on chronic respiratory failure and patient was placed in the ICU for BiPAP support and intubation. Patient eventually recovered. Psych was consulted and recommended continuation of her psych medications. On 09/02/17, patient had continuous nausea and vomiting with worsening lethargy. Small bowel follow-through was ordered and demonstrated gastro-paresis. Today, patient has improvement of symptoms. She denies nausea or vomiting for the last 24 hours. She denies any fever, chills, nausea, vomiting, abdominal pain. She expresses that she would like to be discharged. No further acute complaints. Discharge discussed with: patient - Time Spent with Patient Total time spent providing and/or coordinating discharge services: - Discharge Medications Prescriptions: Docusate [Colace] 100 mg PO BID #30 capsule Home Medications: Acetaminophen [Tylenol] 500 mg PO PRN PRN 08/21/17 [History] Aspirin [Lo-Dose Aspirin EC] 81 mg PO DAILY 08/21/17 [History] Atorvastatin Calcium [Lipitor] 20 mg PO DAILY 08/21/17 [History] Benztropine Mesylate 2 mg PO BID 08/21/17 [History] Calcium Carbonate [Antacid Ultra Strength] 1,177 mg PO PRN 08/21/17 [History] Cholecalciferol (Vitamin D3) [Vitamin D3] 1,000 unit PO DAILY 08/21/17 [History] CloZAPine [Fazaclo] 400 mg PO HS 08/21/17 [History] Ergocalciferol (VITAMIN D2) [Vitamin D] 400 unit PO DAILY 08/21/17 [History] Metoprolol Succinate [Toprol Xl] 12.5 mg PO DAILY 08/21/17 [History] Montelukast [Singulair] 10 mg PO HS 08/21/17 [History] Omeprazole [PriLOSEC] 20 mg PO DAILY 08/21/17 [History] Oxybutynin Chloride [Ditropan Xl] 5 mg PO 1-2XD 08/21/17 [History] Potassium Chloride [K-Tab ER] 20 meq PO DAILY 08/21/17 [History] Sennosides/Docusate Sodium [Senna Plus] 1 each PO DAILY 08/21/17 [History] risperiDONE [RisperDAL] 3 mg PO BID 08/21/17 [History] CloZAPine [Fazaclo] 200 mg PO QAM 08/23/17 [History] Divalproex (24 HR) [Depakote ER (24 HR)] 500 mg PO BID 08/23/17 [History] Divalproex (24 HR) [Depakote ER (24 HR)] 250 mg PO HS 09/03/17 [History] Docusate [Colace] 100 mg PO BID #30 capsule 09/07/17 [Rx] Allergies/Adverse Reactions: 3 Allergy/AdvReac Type Severity Reaction Status Date / Time Penicillins Allergy Hives Verified 08/21/17 02:23 Date of admission: 08/21/17 14:05 Primary care physician: Jono Ramirez CNP Consults: 08/23/17 12:08 Consult to Logging Crew Supervisor [CONS] Routine Reason for SW Consult: Patient from [facility] 08/25/17 08:25 Consult to Pulmonology [CONS] Routine Consulting Provider: Pulm Crit Care & Sleep [facility] Reason for Consult: Hypercapnic respiratory failure. Pt remains somnolent this morning despite of being on BiPAP. May need ventilation support. Case had been discussed with Dr. Estevez. Call Completed: Yes 08/25/17 12:53 Consult to Interpret Exam [CONS] Routine Consulting Provider: Nicko Henry Consult to Interpret Exam: Interpret EEG 08/29/17 10:57 Consult to Psychiatry [CONS] Routine Consulting Provider: Psychiatry [facility] Reason for Consult: Pt on variety of psych medications and needs Rx review; also, labile respiratory status has been adversely affected by anxiety. Pt in process of transferring to med/tele *most likely 2NE* Time Notified: 11:02 Call Completed: Yes 08/31/17 11:46 PT [Consult to Physical Therapy] [CONS] Routine Comment: Evaluate, develop and implement POC Reason for Consult: Muscle weakness Does patient have active BEDREST order?: No Is patient medically & hemodynamically stable?: Yes Patient assessed for mobility or mobilized this visit?: No 08/31/17 11:47 OT [Consult to Occupational Therapy] [CONS] Routine Comment: Evaluate, develop and implement POC Reason for Consult: Weakness Does patient have active BEDREST order?: No Is patient medically & hemodynamically stable?: Yes Patient assessed for mobility or mobilized this visit?: No Discharging clinician: Shahram Dela Cruz Anticipated date of discharge: 09/07/17 - Constitutional Vitals: Temp Pulse Resp BP Pulse Ox 98.5 F 94 17 127/81 93 09/07/17 12:11 09/07/17 12:11 09/07/17 12:11 09/07/17 12:11 09/07/17 12:11 General appearance: Present: A&O X 3 - Head Head exam: Present: atraumatic, normocephalic - Eye Eye exam: Present: PERRL, conjuntiva pink, sclera anicteric Pupils: Present: PERRL - Neck Neck exam general surgery: Present: supple, trachea midline. Absent: lymphadenopathy - Respiratory Respiratory exam: Present: CTAB. Absent: accessory muscle use, rales, rhonchi, wheezes - Cardiovascular Cardiovascular exam: Present: RRR, +S1, +S2. Absent: diastolic murmur, gallop, rubs, systolic murmur - GI/Abdominal GI/Abdominal exam: Present: normal bowel sounds, soft, no peritoneal signs. Absent: distended, tenderness - Extremities Exam Extremities exam: Present: warm, radial pulses palpable and symmetrical. Absent : calf tenderness, cyanotic, pedal edema - Neurological Exam Neurological exam: Present: CN II-XII intact, oriented X3, no focal deficits. Absent: pronater drift, facial droop, speech deficit - Skin Skin exam: Present: dry, intact - Patient Status Disposition: Home, Self-Care Condition: Fair Functional capacity at discharge: independent ambulation Overall status at discharge: patient is back to baseline - Discharge Instructions Instructions: Heart Failure (DC), Chronic Obstructive Pulmonary Disease (DC), Fall Prevention (DC), Cigarette Smoking and Your Health, Certified Paralegal (GEN) Follow Up With: Jono Ramirez, LASER PRINT OPERATOR [Primary Care Provider] - - Diet and Activity Activity: increase activity as tolerated Diet: advance to your usual diet <Gali Dela Cruz - Last Filed: 09/07/17 18:06> Date of Encounter: 09/07/17 - Discharge Diagnosis (1) Acute exacerbation of chronic obstructive pulmonary disease (COPD) Status: Resolved (2) HLD (hyperlipidemia) Status: Chronic Qualifiers: Hyperlipidemia type: mixed hyperlipidemia Qualified Code(s): E78.2 - Mixed hyperlipidemia (3) Schizophrenia Status: Chronic Qualifiers: Schizophrenia type: unspecified Qualified Code(s): F20.9 - Schizophrenia, unspecified (4) Tobacco abuse counseling Status: Chronic (5) Frequent PVCs Status: Chronic (6) Chronic respiratory failure with hypoxia and hypercapnia Status: Acute (7) Pulmonary hypertension Status: Chronic (8) TONA (obstructive sleep apnea) Status: Chronic (9) Morbid obesity due to excess calories Status: Chronic Hospital course: Ms. Fuller is a 57 year old female - Time Spent with Patient Total time spent providing and/or coordinating discharge services: Date of admission: 08/21/17 14:05 Primary care physician: Jono Ramirez CNP Consults: 08/23/17 12:08 Consult to Logging Crew Supervisor [CONS] Routine Reason for SW Consult: Patient from [facility] 08/25/17 08:25 Consult to Pulmonology [CONS] Routine Consulting Provider: Pulm Crit Care & Sleep [facility]a Reason for Consult: Hypercapnic respiratory failure. Pt remains somnolent this morning despite of being on BiPAP. May need ventilation support. Case had been discussed with Dr. Estevez. Call Completed: Yes 08/25/17 12:53 Consult to Interpret Exam [CONS] Routine Consulting Provider: Nicko Henry Consult to Interpret Exam: Interpret EEG 08/29/17 10:57 Consult to Psychiatry [CONS] Routine Consulting Provider: Psychiatry [place] Reason for Consult: Pt on variety of psych medications and needs Rx review; also, labile respiratory status has been adversely affected by anxiety. Pt in process of transferring to med/tele *most likely 2NE* Time Notified: 11:02 Call Completed: Yes 08/31/17 11:46 PT [Consult to Physical Therapy] [CONS] Routine Comment: Evaluate, develop and implement POC Reason for Consult: Muscle weakness Does patient have active BEDREST order?: No Is patient medically & hemodynamically stable?: Yes Patient assessed for mobility or mobilized this visit?: No 08/31/17 11:47 OT [Consult to Occupational Therapy] [CONS] Routine Comment: Evaluate, develop and implement POC Reason for Consult: Weakness Does patient have active BEDREST order?: No Is patient medically & hemodynamically stable?: Yes Patient assessed for mobility or mobilized this visit?: No - Constitutional Vitals: Temp Pulse Resp BP Pulse Ox 98.5 F 86 18 135/90 94 09/07/17 15:38 09/07/17 15:38 09/07/17 15:38 09/07/17 15:38 09/07/17 15:38 - Attending Attestation I saw and examined this patient independently, and my medical decision making was reviewed with the resident physician on 09/07/2017. I agree with the documented findings, assessment and treatment plan as described in the discharge summary.
[2017-09-08] MEDS: Ipratropium/Albuterol Neb 3 ML IH SCH ×5 (03:16→19:42)
[2017-09-08] MEDS: *HR* Heparin 5,000 UNIT/ML VIAL SQ SCH ×2 (05:46→13:16)
--- NOTE | 2017-09-08 08:40 | Internal Med Progress Note ---
<Duane Toth - Last Filed: 09/08/17 15:53> Date of Encounter: 09/08/17 - Assessment and plan (1) HLD (hyperlipidemia) Current Visit: Yes Status: Chronic Qualifiers: Hyperlipidemia type: mixed hyperlipidemia Qualified Code(s): E78.2 - Mixed hyperlipidemia (2) Schizophrenia Current Visit: Yes Status: Chronic Qualifiers: Schizophrenia type: unspecified Qualified Code(s): F20.9 - Schizophrenia, unspecified (3) Acute exacerbation of chronic obstructive pulmonary disease (COPD) Current Visit: Yes Status: Resolved (4) Obesity hypoventilation syndrome Current Visit: Yes Status: Chronic (5) Acute and chronic respiratory failure Current Visit: Yes Status: Acute Qualifiers: Respiratory failure complication: hypoxia and hypercapnia Qualified Code(s) : J96.21 - Acute and chronic respiratory failure with hypoxia; J96.22 - Acute and chronic respiratory failure with hypercapnia; J96.22 - Acute and chronic respiratory failure with hypercapnia; J96.22 - Acute and chronic respiratory failure with hypercapnia (6) CHF exacerbation Current Visit: Yes Status: Suspected Qualifiers: Heart failure type: diastolic Qualified Code(s): I50.33 - Acute on chronic diastolic (congestive) heart failure (7) Tobacco abuse Current Visit: Yes Status: Chronic (8) Hypokalemia Current Visit: Yes Status: Acute (9) Hepatic encephalopathy Current Visit: Yes Status: Acute (10) Nausea and vomiting Current Visit: Yes Status: Acute Qualifiers: Vomiting type: cyclical vomiting Vomiting Intractability: non-intractable Qualified Code(s): G43.A0 - Cyclical vomiting, not intractable (11) Partial small bowel obstruction Current Visit: Yes Status: Suspected (12) Hypomagnesemia Current Visit: Yes Status: Acute - Time Spent With Patient Total time spent is greater than 50% in coordination of care (as documented) at patient's floor/unit and/or counseling patient: - Constitutional Vitals: Temp Pulse Resp BP Pulse Ox 97.5 F L 82 18 134/85 95 09/08/17 07:38 09/08/17 07:38 09/08/17 11:19 09/08/17 07:38 09/08/17 11:19 Internal Medicine: Result - Labs CBC & Chem 7: 09/07/17 03:52 09/08/17 08:56 Labs: BMP 09/08/17 08:56 Sodium 136 Potassium 3.4 L Chloride 98 Carbon Dioxide 33 H BUN 3 L Creatinine 0.32 L Glucose 98 Calcium 9.2 - ABG Interpretation ABG results: ABG ABG pH 7.40 pH Units (7.32-7.45) 09/02/17 22:13 ABG pCO2 69 mmHg (35-45) H 09/02/17 22:13 ABG pO2 56 mmHg (85-104) L 09/02/17 22:13 ABG O2 Saturation 87 % (95-98) L 09/02/17 22:13 Consult Discharge Plan - Plan Instructions: Heart Failure (DC), Chronic Obstructive Pulmonary Disease (DC), Fall Prevention (DC), Cigarette Smoking and Your Health, Mud Analysis Well Logging Operator (GEN) Referrals: Jono Ramirez, [employer] [Primary Care Provider] - Prescriptions: Docusate [Colace] 100 mg PO BID #30 capsule - Attending Attestation I performed an independent interview and exam of this patient. I agree with the findings, assessment, and plan of Dr. Rand, internal medicine internal audit manager. Patient is likely to be discharged once arrangements are made. Please see discharge summary dictated on 09/07/2017. Patient will continue on oxygen at 3 L per nasal cannula. Vitals otherwise remained stable. Testing replacement ordered. Also magnesium. Continue on BiPAP at night. All else as outlined above. <Satya Rand - Last Filed: 09/08/17 18:08> Date of Encounter: 09/08/17 Time of Encounter: 08:38 - Assessment and plan (1) Acute exacerbation of chronic obstructive pulmonary disease (COPD) Current Visit: Yes Status: Resolved Assessment and plan: Stable. Continue supportive care at this time. (2) Obesity hypoventilation syndrome Current Visit: Yes Status: Chronic Assessment and plan: Chronic. Support with BiPAP at night (3) Acute and chronic respiratory failure Current Visit: Yes Status: Acute Assessment and plan: Seems to be doing OK despite not wearing bipap. Monitoring closely. She is alert and oriented. Qualifiers: Respiratory failure complication: hypoxia and hypercapnia Qualified Code(s) : J96.21 - Acute and chronic respiratory failure with hypoxia; J96.22 - Acute and chronic respiratory failure with hypercapnia; J96.22 - Acute and chronic respiratory failure with hypercapnia; J96.22 - Acute and chronic respiratory failure with hypercapnia (4) CHF exacerbation Current Visit: Yes Status: Suspected Assessment and plan: Currently stable- No issues at this time. Qualifiers: Heart failure type: diastolic Qualified Code(s): I50.33 - Acute on chronic diastolic (congestive) heart failure (5) Hepatic encephalopathy Current Visit: Yes Status: Acute Assessment and plan: Currently on Rifaximin and tolerating it. Mentally alert and interactive. Won' t take Lactulose consistently (6) Hypokalemia Current Visit: Yes Status: Acute Assessment and plan: Improved to a normal level. Continue monitoring. (7) Hypomagnesemia Current Visit: Yes Status: Acute Assessment and plan: Replaced today (8) Nausea and vomiting Current Visit: Yes Status: Acute Assessment and plan: Resolved Qualifiers: Vomiting type: cyclical vomiting Vomiting Intractability: non-intractable Qualified Code(s): G43.A0 - Cyclical vomiting, not intractable (9) Partial small bowel obstruction Current Visit: Yes Status: Suspected Assessment and plan: Resolved (10) Tobacco abuse Current Visit: Yes Status: Chronic Assessment and plan: Chronic. educated on cessation (11) Schizophrenia Current Visit: No Status: Chronic Assessment and plan: Continue with current psych medications Qualifiers: Schizophrenia type: unspecified Qualified Code(s): F20.9 - Schizophrenia, unspecified (12) HLD (hyperlipidemia) Current Visit: No Status: Chronic Assessment and plan: Chronic Qualifiers: Hyperlipidemia type: unspecified Qualified Code(s): E78.5 - Hyperlipidemia , unspecified (13) DVT prophylaxis Current Visit: Yes Status: Chronic Assessment and plan: Ambulation, EPCDs - Time Spent With Patient Total time spent is greater than 50% in coordination of care (as documented) at patient's floor/unit and/or counseling patient: - Subjective Interval history: Patient awaiting placement today, discharge orders in place. Please see corresponding discharge summary from 09/07/17. Patient has no new c/o today and denies N/V. Replete electrolytes as needed. - Constitutional Vitals: Temp Pulse Resp BP Pulse Ox 97.5 F L 82 18 134/85 100 09/08/17 07:38 09/08/17 07:38 09/08/17 07:38 09/08/17 07:38 09/08/17 07:38 General appearance: Present: cooperative, pleasant, no acute distress, obese - Head Head exam: Present: atraumatic, normocephalic - Eye Eye exam: Present: PERRL, conjuntiva pink, sclera anicteric Pupils: Present: PERRL - ENT ENT exam: Present: mucous membranes dry, normal oropharynx - Neck Neck exam general surgery: Present: supple, trachea midline. Absent: lymphadenopathy - Respiratory Respiratory exam: Present: CTAB. Absent: accessory muscle use, rales, rhonchi, wheezes - Cardiovascular Cardiovascular exam: Present: RRR, +S1, +S2. Absent: diastolic murmur, gallop, rubs, systolic murmur - GI/Abdominal GI/Abdominal exam: Present: normal bowel sounds, soft, no peritoneal signs. Absent: distended, tenderness - Extremities Exam Extremities exam: Present: warm, radial pulses palpable and symmetrical. Absent : calf tenderness, cyanotic, pedal edema - Back Exam Back exam: Present: normal inspection. Absent: tenderness - Neurological Exam Neurological exam: Present: CN II-XII intact, oriented X3, no focal deficits. Absent: pronater drift, facial droop, speech deficit - Psychiatric Psychiatric exam: Present: normal affect, normal mood - Skin Skin exam: Present: dry, intact, normal color, warm Internal Medicine: Result - Labs CBC & Chem 7: 09/07/17 03:52 09/08/17 08:56 - ABG Interpretation ABG results: ABG ABG pH 7.40 pH Units (7.32-7.45) 09/02/17 22:13 ABG pCO2 69 mmHg (35-45) H 09/02/17 22:13 ABG pO2 56 mmHg (85-104) L 09/02/17 22:13 ABG O2 Saturation 87 % (95-98) L 09/02/17 22:13 - Pulse Oximetry Interpretation Digit-Finger Pulse Oximetry Readin (on 3L O2 via NC) - Impressions Impressions Small Bowel X-Ray 09/06/17 13:36 IMPRESSION: Delayed gastric emptying, with retention of a large portion of the oral contrast within the stomach throughout the examination. This may be related to gastroparesis. A partial proximal small bowel obstruction is felt to be less likely given the lack of a transition point on the previous CT exam. The examination is otherwise unremarkable, with normal small bowel transit time. D/ / 09/07/2017 08:23:33 Ozzy Macedo MD / [email or web address] Interpreting Provider: Ozzy Macedo MD X-Ray 09/06/17 21:30
[2017-09-08] MEDS: Sennosides/Docusate Sodium TABLET PO SCH (09:26)
[2017-09-08] MEDS: Aspirin Enteric Coated 81 MG Tablet PO SCH (09:26)
[2017-09-08] MEDS: RisperiDAL 3 MG TABLET PO SCH (09:26)
[2017-09-08] MEDS: cloZAPine 100 MG TABLET PO SCH (09:26)
[2017-09-08 10:03] LABS: BUN/Creatinine Ratio 9 (6-26); Blood Urea Nitrogen 3 mg/dL (6-20); Carbon Dioxide 33 mEq/L (23-29); Chloride 98 mEq/L (98-107); Potassium 3.4 mEq/L (3.5-5.1); Sodium 136 mEq/L (136-145)
[2017-09-08 10:04] LABS: Calcium 9.2 mg/dL (8.6-10.3); Glucose 98 mg/dL (70-105); Magnesium 1.5 mg/dL (1.6-2.6); Osmolality,Calculated 279 (280-300); eGFR For African Americans > 60 (> 60); eGFR For Non-African Americans > 60 (> 60)
[2017-09-08] MEDS ORDERED: 0.9 % Sodium Chloride 250 ML ONE (13:12)
[2017-09-08 16:07] VITALS: BP 116/76
[2017-09-08] MEDS ORDERED: Potassium Chloride Elixir 20 MEQ/15 ML UDC PO ONE (16:08)
--- NOTE | 2017-09-08 18:04 | Physician Discharge Referral ---
[facility] Referral Info [facility] Provider in Charge: Duane Toth Provider in Charge after Transfer: PCP Institutional Level of Care: Skilled - Diagnosis (1) Acute exacerbation of chronic obstructive pulmonary disease (COPD) Priority: Primary Status: Resolved (2) Obesity hypoventilation syndrome Priority: Primary Status: Chronic (3) Acute and chronic respiratory failure Priority: Primary Status: Acute (4) CHF exacerbation Priority: Primary Status: Suspected (5) Hepatic encephalopathy Priority: Primary Status: Acute (6) Hypokalemia Priority: Primary Status: Acute (7) Hypomagnesemia Priority: Primary Status: Acute (8) Nausea and vomiting Priority: Primary Status: Acute (9) Partial small bowel obstruction Priority: Primary Status: Suspected (10) Tobacco abuse Priority: Secondary Status: Chronic (11) Schizophrenia Priority: Secondary Status: Chronic (12) HLD (hyperlipidemia) Priority: Secondary Status: Chronic (13) DVT prophylaxis Priority: Secondary Status: Acute Prognosis: Fair Aware of Diagnosis: Patient Aware of Prognosis: Patient - Transfer Medications Prescriptions: Docusate [Colace] 100 mg PO BID #30 capsule Home Medications: Acetaminophen [Tylenol] 500 mg PO PRN PRN 08/21/17 [History] Aspirin [Lo-Dose Aspirin EC] 81 mg PO DAILY 08/21/17 [History] Atorvastatin Calcium [Lipitor] 20 mg PO DAILY 08/21/17 [History] Benztropine Mesylate 2 mg PO BID 08/21/17 [History] Calcium Carbonate [Antacid Ultra Strength] 1,177 mg PO PRN 08/21/17 [History] Cholecalciferol (Vitamin D3) [Vitamin D3] 1,000 unit PO DAILY 08/21/17 [History] CloZAPine [Fazaclo] 400 mg PO HS 08/21/17 [History] Ergocalciferol (VITAMIN D2) [Vitamin D] 400 unit PO DAILY 08/21/17 [History] Metoprolol Succinate [Toprol Xl] 12.5 mg PO DAILY 08/21/17 [History] Montelukast [Singulair] 10 mg PO HS 08/21/17 [History] Omeprazole [PriLOSEC] 20 mg PO DAILY 08/21/17 [History] Oxybutynin Chloride [Ditropan Xl] 5 mg PO 1-2XD 08/21/17 [History] Potassium Chloride [K-Tab ER] 20 meq PO DAILY 08/21/17 [History] Sennosides/Docusate Sodium [Senna Plus] 1 each PO DAILY 08/21/17 [History] risperiDONE [RisperDAL] 3 mg PO BID 08/21/17 [History] CloZAPine [Fazaclo] 200 mg PO QAM 08/23/17 [History] Divalproex (24 HR) [Depakote ER (24 HR)] 500 mg PO BID 08/23/17 [History] Divalproex (24 HR) [Depakote ER (24 HR)] 250 mg PO HS 09/03/17 [History] Docusate [Colace] 100 mg PO BID #30 capsule 09/07/17 [Rx] Allergies/Adverse Reactions: 3 Allergy/AdvReac Type Severity Reaction Status Date / Time Penicillins Allergy Hives Verified 08/21/17 02:23 - Respiratory Orders Oxygen / L per min (3) Smoking Cessation: Smoking cessation has been advised. For more information, call the [place] Tobacco Quit Line at 3-062-NPOW-NOW. - Lab Orders Lab Orders: Other (include drug levels w/frequency) (CMP, Magnesium) - Ancillary Orders May use pressure relief devices daily prn - Advance Directives Code Status: Full Code - Rehabiliation Orders Rehab Potential: Fair Rehab Orders: ROM Exercises, Evaluation for Physical Therapy, Evaluation for Occupational Therapy - Treatments Skin tear care topically daily PRN per policy, May check for fecal impaction rectally daily PRN, Fleet enema rectally every other day PRN cleansing purposes - Diet Orders Mechanical Soft CERTIFICATION: I certify that the transfer of the above named patient to an Extended Care Facility is necessary for the continuing treatment of the diagnosis listed. The above information is true and accurate reflection of patient's current condition. Confidential - Redisclosure prohibited without a patient's written consent.
== END 2017-09-08 19:57 | disposition home or self-care (01) | DRG 133 ==
LOC: EMEROO 02:22 → 2NENU 02:22 → SUATTDRO 14:05 → ICNU 08-25 10:12 → 2NENU 08-29 15:51
PROVIDERS: ADMIT Internal Medicine; ATTEND Hospitalist